=== PATIENT | male | born 1965 | race American Indian/Alaskan Native ===

== ENCOUNTER 2018-10-21 17:13 | Emergency (ER) | payer MEDICAID, OTHER ==
[2018-10-21] MEDS ORDERED: Diphtheria,Pertussis(Acell),Tetanus Vaccine 0.5 ML SDV IM ONE (17:55)
--- NOTE | 2018-10-21 18:01 | EDM.PDOC ---
ED HPI GENERAL MEDICAL PROBLEM - General Chief Complaint: Eye Problems Stated Complaint: RED EYE, HIT WITH BRANCH Time Seen by Provider: 10/21/18 17:45 Source of Information: Reports: Patient, Old Records, RN History Limitations: Reports: No Limitations - History of Present Illness INITIAL COMMENTS - FREE TEXT/NARRATIVE: 53 yo NA male presents with R eye pain after being hit in the R eye last night by a tree branch. Eye somewhat painful and watering a lot. Pain is not severe. Vision in normal. 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 (see below) (none) Right Eye Pain Score (Numeric/FACES): 4 - Related Data Allergies Allergy/AdvReac Type Severity Reaction Status Date / Time codeine Allergy Cannot Verified 10/21/18 17:41 Remember Home Meds: Home Meds Albuterol Sulfate [Albuterol Sulfate HFA] 2 puff INH TID PRN 11/10/13 [History] Fluticasone/Salmeterol [Advair 250-50 Diskus] 1 puff INH DAILY 11/10/13 [History ] Formoterol/Mometasone [Dulera 100 MCG/5 MCG] 1 - 2 puff INH BID 11/10/13 [ History] Acetaminophen 650 mg PO Q6HR PRN 02/03/18 [History] Albuterol [Proventil Neb Soln] 2.5 mg NEB Q6HR PRN 02/03/18 [History] Aspirin [Adult Low Dose Aspirin EC] 81 mg PO DAILY 02/03/18 [History] Cholecalciferol (Vitamin D3) [Decara] 50,000 units PO WEEKLY 02/03/18 [History] Diclofenac Sodium [Voltaren] 50 mg PO BID PRN 02/03/18 [History] Gabapentin [Neurontin] 900 mg PO TID 02/03/18 [History] Hydrocodone/Acetaminophen [Iron 10-325 Tablet] 1 tab PO TID PRN 02/03/18 [ History] Metoprolol Tartrate [Lopressor] 12.5 mg PO DAILY 02/03/18 [History] Multivitamin with Minerals [Multiple Vitamin] 1 tab PO DAILY 02/03/18 [History] Nitroglycerin [Nitrostat] 0.4 mg SL ASDIRECTED PRN 02/03/18 [History] Omeprazole 20 mg PO DAILY 02/03/18 [History] Ondansetron [Zofran ODT] 4 mg PO Q8HR PRN 02/03/18 [History] traZODone HCl [Trazodone HCl] 50 mg PO BEDTIME 02/03/18 [History] Past Medical History Cardiovascular History: Reports: Heart Failure, Hypertension, [place], PVD Respiratory History: Reports: Asthma, COPD Gastrointestinal History: Reports: GERD Musculoskeletal History: Reports: Back Pain, Chronic, Other (See Below) Other Musculoskeletal History: bad knees. bad left heel Neurological History: Reports: Migraines Endocrine/Metabolic History: Reports: Obesity/BMI 30+ Hematologic History: Reports: B12 Deficiency - Past Surgical History HEENT Surgical History: Reports: Other (See Below) Other HEENT Surgeries/Procedures: nasal surgery Cardiovascular Surgical History: Reports: Other (See Below) Other Cardiovascular Surgeries/Procedures: angiogram GI Surgical History: Reports: Hernia, Abdominal Musculoskeletal Surgical History: Reports: Hip Replacement Social & Family History - Tobacco Use Smoking Status *Q: Current Every Day Smoker Years of Tobacco use: 35 Packs/Tins Daily: 1 - Caffeine Use Caffeine Use: Reports: Coffee - Recreational Drug Use Recreational Drug Use: No ED ROS GENERAL - Review of Systems Review Of Systems: See Below Constitutional: Reports: No Symptoms HEENT: Reports: Eye Discharge (watering), Eye Pain (Right) Skin: Reports: No Symptoms Neurological: Reports: No Symptoms ED EXAM GENERAL W FULL EYE - Physical Exam Exam: See Below Exam Limited By: No Limitations General Appearance: Alert, WD/WN, No Apparent Distress Eye Exam: Right Eye: Conjunctival Injection, Bilateral Eye: EOMI, PERRL Eyelids: Bilateral: Normal Appearance Conjunctiva & Sclera: Right: Injected, Subconjuctival Hemorrhage (small on right ) Cornea Exam: Bilateral: Normal Appearance Extraocular Movements: Bilateral: Intact Pupillary Size: Bilateral: 3 mm Pupillary Reaction: Bilateral: Brisk Ears: Normal External Exam, Normal Canal, Hearing Grossly Normal Nose: Normal Inspection, Normal Mucosa, No Blood Throat/Mouth: Normal Lips, Normal Oropharynx, Normal Voice, No Airway Compromise Head: Atraumatic, Normocephalic Neck: Normal Inspection Course - Vital Signs Text/Narrative:: Fluorescein staining reveals abrasion just medial and horizontal starting at the medial edge of the R cornea and extending for about 0.5 cm. Last Recorded V/S: Last Vital Signs Temp 36.3 C 10/21/18 17:39 Pulse 61 10/21/18 17:39 Resp 18 10/21/18 17:39 BP 112/64 10/21/18 17:39 Pulse Ox 100 10/21/18 17:39 - Orders/Labs/Meds Orders: Active Orders 24 hr Category Date Time Status Vaccines to be Administered [RC] PER UNIT ROUTINE Care 10/21/18 17:55 Ordered Diphth,Pertuss(Acell),Tet Vac [Adacel] Med 10/21/18 17:55 Once 0.5 ml IM .ONCE ONE Departure - Departure Time of Disposition: 18:00 Disposition: Home, Self-Care 01 Condition: Good Clinical Impression: Conjunctival abrasion Qualifiers: Encounter type: initial encounter Laterality: right Qualified Code(s): S05.01XA - Injury of conjunctiva and corneal abrasion without foreign body, right eye, initial encounter - Discharge Information *PRESCRIPTION DRUG MONITORING PROGRAM REVIEWED*: No *COPY OF PRESCRIPTION DRUG MONITORING REPORT IN PATIENT ZAKIYA: No Referrals: Daphney Lundy I, RESIDENTIAL ROOFER [Primary Care Provider] - Additional Instructions: No rubbing your eye. Avoid bright lights. Take your antibiotic and pain medicine as prescribed. Recheck if not better in 2 days. - My Orders Last 24 Hours: My Active Orders 10/21/18 17:55 Vaccines to be Administered [RC] PER UNIT ROUTINE Diphth,Pertuss(Acell),Tet Vac [Adacel] 0.5 ml IM .ONCE ONE - Assessment/Plan Last 24 Hours: My Active Orders 10/21/18 17:55 Vaccines to be Administered [RC] PER UNIT ROUTINE Diphth,Pertuss(Acell),Tet Vac [Adacel] 0.5 ml IM .ONCE ONE
== END 2018-10-21 18:15 | disposition home or self-care (01) ==
LOC: JP.ED 17:13
DX: S05.01XA Injury of conjunctiva and corneal abrasion without foreign body, right eye, initial encounter (principal); I11.0 Hypertensive heart disease with heart failure; I50.9 Heart failure, unspecified; J44.9 Chronic obstructive pulmonary disease, unspecified; F17.210 Nicotine dependence, cigarettes, uncomplicated; W22.8XXA Striking against or struck by other objects, initial encounter; Z88.5 Allergy status to narcotic agent; Z79.899 Other long term (current) drug therapy; Z23 Encounter for immunization
CPT/HCPCS: 90471; 90715; 99283; 99283-25

== ENCOUNTER 2020-12-30 01:46 | Inpatient (IN) | payer MEDICAID, OTHER ==
[2020-12-30] MEDS ORDERED: Albuterol 0.083% 2.5 MG/3 ML Neb Soln NEB ONE (02:33)
--- NOTE | 2020-12-30 02:53 | EDM.PDOC ---
ED HPI GENERAL MEDICAL PROBLEM - General Chief Complaint: Respiratory Problem Stated Complaint: TROUBLE BREATHING Time Seen by Provider: 12/30/20 02:35 Source of Information: Reports: Patient, RN History Limitations: Reports: Other (incomplete medical records) - History of Present Illness INITIAL COMMENTS - FREE TEXT/NARRATIVE: 55 yo NA male smoker with known COPD and a chronic deep coccygeal pressure sore presents for worsening of his breathing tonight and new redness around his pressure sore that was noted by his home care nurse when she changed his dressing yesterday morning(told him at that time to go to the hospital). He still smokes 3/4 pack per day. Has a pHx of ETOH abuse. Is brought in by his daughter. He goes to [facility] to see his primary. He was hospitalized about 2 weeks ago for a week for "pneumonia" in [place]. He is not running a fever and states his pressure sore is not any more painful than normal. His pressure sore is followed by wound care doctor in [place], he sees him next in 2 mos. He is not diabetic. Onset: Today (of more breathing trouble) Onset Date: 12/30/20 Duration: Hour(s):, Constant Location: Reports: Chest (breathing worse for 3-4 hrs), Back (coccygeal area increasingly red at least 20 hrs) Quality: Reports: Other (no pain) Severity: Moderate (worsening of breathing and his ulcer) Improves with: Reports: None Worsens with: Reports: Other (unsure) Context: Reports: Other (See HPI) Associated Symptoms: Reports: Shortness of Breath (mostly with exertion). 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 (see below) (none) chronic body pain Pain Score (Numeric/FACES): 8 - Related Data Allergies Allergy/AdvReac Type Severity Reaction Status Date / Time codeine Allergy Cannot Verified 12/30/20 01:54 Remember Home Meds: Home Meds Albuterol Sulfate [Albuterol Sulfate HFA] 2 puff INH TID PRN 11/10/13 [History] Formoterol/Mometasone [Dulera 100 MCG/5 MCG] 1 - 2 puff INH BID 11/10/13 [History] Acetaminophen 650 mg PO Q6HR PRN 02/03/18 [History] Albuterol [Proventil Neb Soln] 2.5 mg NEB Q6HR PRN 02/03/18 [History] Aspirin [Adult Low Dose Aspirin EC] 81 mg PO DAILY 02/03/18 [History] Diclofenac Sodium [Voltaren] 50 mg PO BID PRN 02/03/18 [History] Gabapentin [Neurontin] 900 mg PO TID 02/03/18 [History] Metoprolol Tartrate [Lopressor] 12.5 mg PO DAILY 02/03/18 [History] Multivitamin with Minerals [Multiple Vitamin] 1 tab PO DAILY 02/03/18 [History] Nitroglycerin [Nitrostat] 0.4 mg SL ASDIRECTED PRN 02/03/18 [History] Omeprazole 20 mg PO DAILY 02/03/18 [History] Ondansetron [Zofran ODT] 4 mg PO Q8HR PRN 02/03/18 [History] traZODone HCl [Trazodone HCl] 50 mg PO BEDTIME 02/03/18 [History] Amitriptyline [Elavil] 10 mg PO DAILY 12/30/20 [History] oxyCODONE HCl/Acetaminophen [Percocet 10-325 mg Tablet] 1 tab PO ASDIRECTED PRN 12/30/20 [History] Past Medical History Cardiovascular History: Reports: Heart Failure, Hypertension, [place], PVD Respiratory History: Reports: Asthma, COPD, Sleep Apnea Gastrointestinal History: Reports: GERD Musculoskeletal History: Reports: Back Pain, Chronic, Other (See Below) Other Musculoskeletal History: bad knees. bad left heel Neurological History: Reports: Migraines Psychiatric History: Reports: Anxiety, Depression Endocrine/Metabolic History: Reports: Obesity/BMI 30+, Other (See Below) Other Endocrine/Metabolic History: hypoglycemic Hematologic History: Reports: B12 Deficiency Dermatologic History: Reports: Cellulitis, Other (See Below) Other Dermatologic History: pressure sore left side of buttox, treating since 2001 - Past Surgical History HEENT Surgical History: Reports: Other (See Below) Other HEENT Surgeries/Procedures: nasal surgery Cardiovascular Surgical History: Reports: Other (See Below) Other Cardiovascular Surgeries/Procedures: angiogram GI Surgical History: Reports: Hernia, Abdominal Musculoskeletal Surgical History: Reports: Hip Replacement Social & Family History - Tobacco Use Tobacco Use Status *Q: Current Every Day Tobacco User Years of Tobacco use: 15 Packs/Tins Daily: 0.7 - Caffeine Use Caffeine Use: Reports: Coffee - Recreational Drug Use Recreational Drug Use: Yes ED ROS GENERAL - Review of Systems Review Of Systems: See Below Constitutional: Denies: Fever, Chills HEENT: Reports: No Symptoms Respiratory: Reports: Shortness of Breath, Wheezing. Denies: Cough, Sputum, Hemoptysis Cardiovascular: Reports: No Symptoms Endocrine: Reports: No Symptoms GI/Abdominal: Reports: No Symptoms : Reports: No Symptoms Musculoskeletal: Reports: No Symptoms Skin: Reports: Wound (chronic coccygeal pressure sore now red. ) Neurological: Reports: No Symptoms ED EXAM, GENERAL - Physical Exam Exam: See Below Exam Limited By: No Limitations General Appearance: Alert, WD/WN, No Apparent Distress Eye Exam: Bilateral Eye: Normal Inspection Ears: Normal External Exam, Normal Canal, Hearing Grossly Normal Ear Exam: Bilateral Ear: Auricle Normal, Canal Normal Nose: Normal Inspection, No Blood Throat/Mouth: Normal Lips, Normal Oropharynx, Other (hoarse voice) Head: Atraumatic, Normocephalic Neck: Normal Inspection Respiratory/Chest: No Respiratory Distress, Lungs Clear, No Accessory Muscle Use, Respiratory Distress, Wheezing Cardiovascular: Regular Rate, Rhythm, No Edema GI/Abdominal: Normal Bowel Sounds, Soft, Non-Tender, No Distention. No: Distended Back Exam: Normal Inspection. No: CVA Tenderness (R), CVA Tenderness (L) Extremities: Normal Inspection, Normal Range of Motion, Non-Tender, No Pedal Edema. No: Pedal Edema Neurological: Alert, Oriented, CN II-XII Intact, Normal Cognition, No Jie r/Sensory Deficits Psychiatric: Normal Affect, Normal Mood Skin Exam: Warm, Dry, No Rash, Erythema (There is erythema surrounding his wound in a radius of about 2 cm), Wound/Incision (There is a deep and draining coccygeal ulcer in present with an external dressing and packing. ) #1 Interpretation EKG Date: 12/30/20 Time: 03:45 Rhythm: NSR Rate (Beats/Min): 102 [place]rtle: Normal P-Wave: Present QRS: Normal ST-T: Normal QT: Prolonged Comparison: NA - No Prior EKG Course - Vital Signs Text/Narrative:: Case discussed with Ruth Valenzuela and Titus Thayer @ [facility] Last Recorded V/S: Last Vital Signs Temp 35.9 C L 12/30/20 02:06 Pulse 107 H 12/30/20 02:06 Resp 24 H 12/30/20 02:06 BP 104/66 12/30/20 02:06 Pulse Ox 93 L 12/30/20 02:06 - Orders/Labs/Meds Orders: Active Orders 24 hr Category Date Time Status EKG Documentation Completion [RC] ASDIRECTED Care 12/30/20 03:22 Active RT Aerosol Therapy [RC] ASDIRECTED Care 12/30/20 02:33 Active Chest 2V [CR] Stat Exams 12/30/20 03:15 Taken COVID-19/FLU A+B/RSV [MOLEC] Routine Lab 12/30/20 03:25 Received CULTURE BLOOD [BC] Stat Lab 12/30/20 03:52 Ordered CULTURE BLOOD [BC] Stat Lab 12/30/20 03:52 Ordered UA W/MICROSCOPIC [URIN] Stat Lab 12/30/20 03:15 Ordered Magnesium Sulfate/Water [Magnesium Sulfate in Water 2 Med 12/30/20 03:30 Active GM/50 ML] 2 gm in 50 ml IV ONETIME NS + KCl 20mEq/L [Normal Saline with 20 mEq KCl] 1,000 Med 12/30/20 03:30 Active ml IV ASDIRECTED Potassium Chloride [Klor-Con M20] Med 12/30/20 04:19 Once 40 meq PO ONETIME ONE EKG 12 Lead [EK] Routine Ther 12/30/20 03:22 Ordered Medication Orders Potassium Chloride/Sodium Chloride (Normal Saline With 20 Meq Kcl) 1,000 mls @ 125 mls/hr IV ASDIRECTED EDUARDA Magnesium Sulfate (Magnesium Sulfate In Water 2 Gm/50 Ml) 2 gm in 50 mls @ 12.5 mls/hr IV ONETIME ONE Stop: 12/30/20 07:29 Potassium Chloride (Potassium Chloride 20 Meq Tab.Er) 40 meq PO ONETIME ONE Stop: 12/30/20 04:20 Labs: Laboratory Tests 12/30/20 12/30/20 12/30/20 Range/Units 03:10 03:10 03:10 WBC 19.5 H (4.5-11.0) K/uL RBC 4.02 L (4.30-5.90) M/uL Hgb 12.3 (12.0-15.0) g/dL Hct 35.3 L (40.0-54.0) % MCV 88 (80-98) fL MCH 31 (27-31) pg MCHC 35 (32-36) % Plt Count 281 (150-400) K/uL Sodium (140-148) mmol/L Potassium (3.6-5.2) mmol/L Chloride (100-108) mmol/L Carbon Dioxide (21-32) mmol/L Anion Gap (5.0-14.0) mmol/L BUN (7-18) mg/dL Creatinine (0.8-1.3) mg/dL Est Cr Clr Drug Dosing mL/min Estimated GFR (MDRD) (>60) Glucose (74-106) mg/dL Lactic Acid 2.4 H (0.4-2.0) mmol/L Calcium (8.5-10.1) mg/dL Magnesium (1.8-2.4) mg/dL C-Reactive Protein 7.02 H (0.0-0.3) mg/dL Albumin (3.4-5.0) g/dL 12/30/20 12/30/20 12/30/20 Range/Units 03:10 03:10 03:23 WBC (4.5-11.0) K/uL RBC (4.30-5.90) M/uL Hgb (12.0-15.0) g/dL Hct (40.0-54.0) % MCV (80-98) fL MCH (27-31) pg MCHC (32-36) % Plt Count (150-400) K/uL Sodium 129 L (140-148) mmol/L Potassium 2.2 L* (3.6-5.2) mmol/L Chloride 92 L (100-108) mmol/L Carbon Dioxide 27 (21-32) mmol/L Anion Gap 12.2 (5.0-14.0) mmol/L BUN 17 (7-18) mg/dL Creatinine 0.8 (0.8-1.3) mg/dL Est Cr Clr Drug Dosing 100.94 mL/min Estimated GFR (MDRD) > 60 (>60) Glucose 106 (74-106) mg/dL Lactic Acid (0.4-2.0) mmol/L Calcium 6.7 L* (8.5-10.1) mg/dL Magnesium 1.5 L (1.8-2.4) mg/dL C-Reactive Protein (0.0-0.3) mg/dL Albumin 1.1 L (3.4-5.0) g/dL Meds: Medications Generic Name Dose Route Start Last Admin Trade Name Freq PRN Reason Stop Dose Admin Potassium Chloride/Sodium Chloride 1,000 mls @ 125 mls/hr 12/30/20 03:30 Normal Saline With 20 Meq Kcl IV ASDIRECTED EDUARDA Magnesium Sulfate 2 gm in 50 mls @ 12.5 mls/hr 12/30/20 03:30 Magnesium Sulfate In Water 2 Gm/50 Ml IV 12/30/20 07:29 ONETIME ONE Potassium Chloride 40 meq 12/30/20 04:19 Potassium Chloride 20 Meq Tab.Er PO 12/30/20 04:20 ONETIME ONE Discontinued Medications Generic Name Dose Route Start Last Admin Trade Name Freq PRN Reason Stop Dose Admin Albuterol 2.5 mg 12/30/20 02:33 12/30/20 02:48 Albuterol 0.083% 2.5 Mg/3 Ml Neb Soln NEB 12/30/20 02:34 2.5 mg ONETIME ONE Administration Magnesium Oxide 400 mg 12/30/20 03:31 Magnesium Oxide 400 Mg Tab PO 12/30/20 03:32 ONETIME ONE Potassium Chloride 20 meq 12/30/20 03:15 12/30/20 03:31 Potassium Chloride 20 Meq Tab.Er PO 12/30/20 03:16 20 meq ONETIME ONE Administration - Radiology Interpretation Free Text/Narrative:: CXR-chronic changes only Departure - Departure Time of Disposition: 04:30 Disposition: Admitted As Inpatient 66 Clinical Impression: Hypokalemia, Hypomagnesemia, Hyponatremia, COPD exacerbation, Hypoproteinemia Chronic ulcer of sacral region Qualifiers: Non-pressure ulcer stage: with fat layer exposed Qualified Code(s): L98.492 - Non-pressure chronic ulcer of skin of other sites with fat layer exposed Infected decubitus ulcer Qualifiers: Pressure injury stage: unspecified pressure injury stage Qualified Code(s): L89.90 - Pressure ulcer of unspecified site, unspecified stage - Discharge Information *PRESCRIPTION DRUG MONITORING PROGRAM REVIEWED*: Not Applicable *COPY OF PRESCRIPTION DRUG MONITORING REPORT IN PATIENT ZAKIYA: Not Applicable Referrals: Daphney Lundy NP [Primary Care Provider] - Forms: ED Department Discharge Sepsis Event Note (ED) - Evaluation Sepsis Screening Result: No Definite Risk - Focused Exam Vital Signs: Vital Signs Temp Pulse Resp BP Pulse Ox 12/30/20 02:06 35.9 C L 107 H 24 H 104/66 93 L 12/30/20 02:00 35.9 C L 107 H 24 H 104/66 93 L - My Orders Last 24 Hours: My Active Orders 12/30/20 02:33 RT Aerosol Therapy [RC] ASDIRECTED 12/30/20 03:15 Chest 2V [CR] Stat UA W/MICROSCOPIC [URIN] Stat 12/30/20 03:22 EKG Documentation Completion [RC] ASDIRECTED EKG 12 Lead [EK] Routine 12/30/20 03:25 COVID-19/FLU A+B/RSV [MOLEC] Routine 12/30/20 03:30 Magnesium Sulfate/Water [Magnesium Sulfate in Water 2 GM/50 ML] 2 gm in 50 ml IV ONETIME NS + KCl 20mEq/L [Normal Saline with 20 mEq KCl] 1,000 ml IV ASDIRECTED 12/30/20 03:52 CULTURE BLOOD [BC] Stat CULTURE BLOOD [BC] Stat 12/30/20 04:19 Potassium Chloride [Klor-Con M20] 40 meq PO ONETIME ONE - Assessment/Plan Last 24 Hours: My Active Orders 12/30/20 02:33 RT Aerosol Therapy [RC] ASDIRECTED 12/30/20 03:15 Chest 2V [CR] Stat UA W/MICROSCOPIC [URIN] Stat 12/30/20 03:22 EKG Documentation Completion [RC] ASDIRECTED EKG 12 Lead [EK] Routine 12/30/20 03:25 COVID-19/FLU A+B/RSV [MOLEC] Routine 12/30/20 03:30 Magnesium Sulfate/Water [Magnesium Sulfate in Water 2 GM/50 ML] 2 gm in 50 ml IV ONETIME NS + KCl 20mEq/L [Normal Saline with 20 mEq KCl] 1,000 ml IV ASDIRECTED 12/30/20 03:52 CULTURE BLOOD [BC] Stat CULTURE BLOOD [BC] Stat 12/30/20 04:19 Potassium Chloride [Klor-Con M20] 40 meq PO ONETIME ONE
[2020-12-30] MEDS ORDERED: Potassium Chloride 20 MEQ Tab.ER PO ONE ×4 (03:15→15:33)
[2020-12-30] MEDS ORDERED: NS + KCl 20mEq/L 1,000 ML IV SCH ×2 (03:30→06:15)
[2020-12-30] MEDS ORDERED: Magnesium Sulfate/Water 2 GM/50 ML BAG IV ONE (03:30)
[2020-12-30] MEDS ORDERED: Magnesium Oxide 400 MG Tab PO ONE (03:31)
[2020-12-30 04:20] LABS: CORONAVIRUS COVID-19 NAA NEGATIVE (NEGATIVE)
--- NOTE | 2020-12-30 05:45 | PCM.HP.2 ---
H&P History of Present Illness - General Date of Service: 12/30/20 Admit Problem/Dx: Admission Diagnosis/Problem Admission Diagnosis/Problem COPD with acute lower respiratory infection Source of Information: Patient History Limitations: Reports: No Limitations - History of Present Illness Initial Comments - Free Text/Narative: Chief Complaint: shortness of breath and pressure sore (since 2001) 55 yo NA male smoker with known COPD and a chronic deep coccygeal pressure sore presents for worsening of his breathing tonight and new redness around his pressure sore that was noted by his home care nurse when she changed his dressing yesterday morning(told him at that time to go to the hospital). He still smokes 3/4 pack per day. Has a pHx of ETOH abuse. Is brought in by his daughter. He goes to [facility] to see his primary. He was hospitalized about 2 weeks ago for a week for "pneumonia" in [place]. He is not running a fever and states his pressure sore is not any more painful than normal. His pressure sore is followed by wound care doctor in [place], he sees him next in 2 mos. He is not diabetic. Onset: Today (of more breathing trouble) Onset Date: 12/30/20 Onset of Symptoms: Reports: Gradual Duration of Symptoms: Reports: Day(s):, Getting Worse Location: Reports: Generalized Quality: Reports: Same as Previous Episode (hospitalized 2 weeks ago at [place], [place]. for pneumonia) Severity: Moderate Improves with: Reports: None Worsens with: Reports: Rest Context: Reports: Other (acute on chronic disease) Associated Symptoms: Reports: Cough, Malaise, Shortness of Breath chronic body pain Pain Score (Numeric/FACES): 8 - Related Data Allergies/Adverse Reactions: Allergies Allergy/AdvReac Type Severity Reaction Status Date / Time codeine Allergy Cannot Verified 12/30/20 01:54 Remember Home Medications: Home Meds Albuterol Sulfate [Albuterol Sulfate HFA] 2 puff INH TID PRN 11/10/13 [History] Formoterol/Mometasone [Dulera 100 MCG/5 MCG] 1 - 2 puff INH BID 11/10/13 [History] Acetaminophen 650 mg PO Q6HR PRN 02/03/18 [History] Albuterol [Proventil Neb Soln] 2.5 mg NEB Q6HR PRN 02/03/18 [History] Aspirin [Adult Low Dose Aspirin EC] 81 mg PO DAILY 02/03/18 [History] Diclofenac Sodium [Voltaren] 50 mg PO BID PRN 02/03/18 [History] Gabapentin [Neurontin] 900 mg PO TID 02/03/18 [History] Metoprolol Tartrate [Lopressor] 12.5 mg PO DAILY 02/03/18 [History] Multivitamin with Minerals [Multiple Vitamin] 1 tab PO DAILY 02/03/18 [History] Nitroglycerin [Nitrostat] 0.4 mg SL ASDIRECTED PRN 02/03/18 [History] Omeprazole 20 mg PO DAILY 02/03/18 [History] Ondansetron [Zofran ODT] 4 mg PO Q8HR PRN 02/03/18 [History] traZODone HCl [Trazodone HCl] 50 mg PO BEDTIME 02/03/18 [History] Amitriptyline [Elavil] 10 mg PO DAILY 12/30/20 [History] oxyCODONE HCl/Acetaminophen [Percocet 10-325 mg Tablet] 1 tab PO ASDIRECTED PRN 12/30/20 [History] Past Medical History Cardiovascular History: Reports: Heart Failure, Hypertension, [place], PVD Respiratory History: Reports: Asthma, COPD, Sleep Apnea Gastrointestinal History: Reports: GERD Musculoskeletal History: Reports: Back Pain, Chronic, Other (See Below) Other Musculoskeletal History: bad knees. bad left heel Neurological History: Reports: Migraines Psychiatric History: Reports: Anxiety, Depression Endocrine/Metabolic History: Reports: Obesity/BMI 30+, Other (See Below) Other Endocrine/Metabolic History: hypoglycemic Hematologic History: Reports: B12 Deficiency Dermatologic History: Reports: Cellulitis, Other (See Below) Other Dermatologic History: pressure sore left side of buttox, treating since 2001 - Past Surgical History HEENT Surgical History: Reports: Other (See Below) Other HEENT Surgeries/Procedures: nasal surgery Cardiovascular Surgical History: Reports: Other (See Below) Other Cardiovascular Surgeries/Procedures: angiogram GI Surgical History: Reports: Hernia, Abdominal Musculoskeletal Surgical History: Reports: Hip Replacement Social & Family History - Tobacco Use Tobacco Use Status *Q: Current Every Day Tobacco User Years of Tobacco use: 15 Packs/Tins Daily: 0.7 - Caffeine Use Caffeine Use: Reports: Coffee - Recreational Drug Use Recreational Drug Use: Yes - Living Situation & Occupation Living situation: Reports: Single H&P Review of Systems - Review of Systems: Review Of Systems: Unable To Obtain Reason Not Obtained: Mr. Easton to tired/sleepy to answer questions General: Reports: Fatigue Exam - Exam Exam: See Below - Vital Signs Vital Signs: Last Vital Signs Temp 97.3 F 12/30/20 04:27 Pulse 103 H 12/30/20 04:27 Resp 14 12/30/20 04:27 BP 108/68 12/30/20 04:27 Pulse Ox 94 L 12/30/20 04:27 Weight: 182 lb - Exam Quality Assessment: Supplemental Oxygen, DVT Prophylaxis, Skin Breakdown (non pressure ulcer stage with fat layer exposed-chronic since 2001) General: Sedated HEENT: Nares Patent Neck: Supple, Trachea Midline Lungs: Decreased Breath Sounds, Crackles, Wheezing Cardiovascular: Regular Rate, Regular Rhythm, Normal S1, Normal S2 GI/Abdominal Exam: Normal Bowel Sounds, Soft, Non-Tender, No Distention (Male) Exam: Deferred Rectal (Males) Exam: Deferred Extremities: Normal Inspection, Normal Range of Motion, Non-Tender, No Pedal Edema, Normal Capillary Refill, Other (feet with dry skin and nails with fungal infection) Peripheral Pulses: 2+: Radial (L), Radial (R), Dorsalis Pedis (L), Dorsalis Pedis (R) Skin: Warm, Dry, Wound, Other ( Warm, Dry, No Rash, Erythema (There is erythema surrounding his wound in a radius of about 2 cm), Wound/Incision (There is a deep and draining coccygeal ulcer in present with an external dressing and packing.) - Patient Data Lab Results Last 24 hrs: Laboratory Results - last 24 hr 12/30/20 12/30/20 12/30/20 Range/Units 03:10 03:10 03:10 WBC 19.5 H (4.5-11.0) K/uL RBC 4.02 L (4.30-5.90) M/uL Hgb 12.3 (12.0-15.0) g/dL Hct 35.3 L (40.0-54.0) % MCV 88 (80-98) fL MCH 31 (27-31) pg MCHC 35 (32-36) % Plt Count 281 (150-400) K/uL Sodium (140-148) mmol/L Potassium (3.6-5.2) mmol/L Chloride (100-108) mmol/L Carbon Dioxide (21-32) mmol/L Anion Gap (5.0-14.0) mmol/L BUN (7-18) mg/dL Creatinine (0.8-1.3) mg/dL Est Cr Clr Drug Dosing mL/min Estimated GFR (MDRD) (>60) Glucose (74-106) mg/dL Lactic Acid 2.4 H (0.4-2.0) mmol/L Calcium (8.5-10.1) mg/dL Magnesium (1.8-2.4) mg/dL C-Reactive Protein 7.02 H (0.0-0.3) mg/dL Albumin (3.4-5.0) g/dL Urine Color (YELLOW) Urine Appearance (CLEAR) Urine pH (5.0-8.0) Ur Specific [place] (1.008-1.030) Urine Protein (NEGATIVE) mg/dL Urine Glucose (UA) (NEGATIVE) mg/dL Urine Ketones (NEGATIVE) mg/dL Urine Occult Blood (NEGATIVE) Urine Nitrite (NEGATIVE) Urine Bilirubin (NEGATIVE) Urine Urobilinogen (0.2-1.0) EU/dL Ur Leukocyte Esterase (NEGATIVE) Urine RBC (0-5) Urine WBC (0-5) Ur Epithelial Cells Amorphous Sediment Urine Bacteria Urine Mucus Urine Opiates Screen (NEGATIVE) Ur Oxycodone Screen (NEGATIVE) Urine Methadone Screen (NEGATIVE) Ur Propoxyphene Screen (NEGATIVE) Ur Barbiturates Screen (NEGATIVE) Ur Tricyclics Screen (NEGATIVE) Ur Phencyclidine Scrn (NEGATIVE) Ur Amphetamine Screen (NEGATIVE) U Methamphetamines Scrn (NEGATIVE) Urine MDMA Screen (NEGATIVE) U Benzodiazepines Scrn (NEGATIVE) U Cocaine Metab Screen (NEGATIVE) U Marijuana (THC) Screen (NEGATIVE) Influenza Type A RNA (NEGATIVE) RSV RNA (INAAT) (NEGATIVE) Influenza Type B RNA (NEGATIVE) SARS-CoV-2 RNA (DEWAYNE) (NEGATIVE) 12/30/20 12/30/20 12/30/20 Range/Units 03:10 03:10 03:23 WBC (4.5-11.0) K/uL RBC (4.30-5.90) M/uL Hgb (12.0-15.0) g/dL Hct (40.0-54.0) % MCV (80-98) fL MCH (27-31) pg MCHC (32-36) % Plt Count (150-400) K/uL Sodium 129 L (140-148) mmol/L Potassium 2.2 L* (3.6-5.2) mmol/L Chloride 92 L (100-108) mmol/L Carbon Dioxide 27 (21-32) mmol/L Anion Gap 12.2 (5.0-14.0) mmol/L BUN 17 (7-18) mg/dL Creatinine 0.8 (0.8-1.3) mg/dL Est Cr Clr Drug Dosing 100.94 mL/min Estimated GFR (MDRD) > 60 (>60) Glucose 106 (74-106) mg/dL Lactic Acid (0.4-2.0) mmol/L Calcium 6.7 L* (8.5-10.1) mg/dL Magnesium 1.5 L (1.8-2.4) mg/dL C-Reactive Protein (0.0-0.3) mg/dL Albumin 1.1 L (3.4-5.0) g/dL Urine Color (YELLOW) Urine Appearance (CLEAR) Urine pH (5.0-8.0) Ur Specific [place] (1.008-1.030) Urine Protein (NEGATIVE) mg/dL Urine Glucose (UA) (NEGATIVE) mg/dL Urine Ketones (NEGATIVE) mg/dL Urine Occult Blood (NEGATIVE) Urine Nitrite (NEGATIVE) Urine Bilirubin (NEGATIVE) Urine Urobilinogen (0.2-1.0) EU/dL Ur Leukocyte Esterase (NEGATIVE) Urine RBC (0-5) Urine WBC (0-5) Ur Epithelial Cells Amorphous Sediment Urine Bacteria Urine Mucus Urine Opiates Screen (NEGATIVE) Ur Oxycodone Screen (NEGATIVE) Urine Methadone Screen (NEGATIVE) Ur Propoxyphene Screen (NEGATIVE) Ur Barbiturates Screen (NEGATIVE) Ur Tricyclics Screen (NEGATIVE) Ur Phencyclidine Scrn (NEGATIVE) Ur Amphetamine Screen (NEGATIVE) U Methamphetamines Scrn (NEGATIVE) Urine MDMA Screen (NEGATIVE) U Benzodiazepines Scrn (NEGATIVE) U Cocaine Metab Screen (NEGATIVE) U Marijuana (THC) Screen (NEGATIVE) Influenza Type A RNA (NEGATIVE) RSV RNA (INAAT) (NEGATIVE) Influenza Type B RNA (NEGATIVE) SARS-CoV-2 RNA (DEWAYNE) (NEGATIVE) 12/30/20 12/30/20 12/30/20 Range/Units 03:25 04:36 05:13 WBC (4.5-11.0) K/uL RBC (4.30-5.90) M/uL Hgb (12.0-15.0) g/dL Hct (40.0-54.0) % MCV (80-98) fL MCH (27-31) pg MCHC (32-36) % Plt Count (150-400) K/uL Sodium (140-148) mmol/L Potassium (3.6-5.2) mmol/L Chloride (100-108) mmol/L Carbon Dioxide (21-32) mmol/L Anion Gap (5.0-14.0) mmol/L BUN (7-18) mg/dL Creatinine (0.8-1.3) mg/dL Est Cr Clr Drug Dosing mL/min Estimated GFR (MDRD) (>60) Glucose (74-106) mg/dL Lactic Acid (0.4-2.0) mmol/L Calcium (8.5-10.1) mg/dL Magnesium (1.8-2.4) mg/dL C-Reactive Protein (0.0-0.3) mg/dL Albumin (3.4-5.0) g/dL Urine Color Yellow (YELLOW) Urine Appearance Clear (CLEAR) Urine pH 6.5 (5.0-8.0) Ur Specific [place] 1.020 (1.008-1.030) Urine Protein Negative (NEGATIVE) mg/dL Urine Glucose (UA) Negative (NEGATIVE) mg/dL Urine Ketones Negative (NEGATIVE) mg/dL Urine Occult Blood Negative (NEGATIVE) Urine Nitrite Negative (NEGATIVE) Urine Bilirubin Negative (NEGATIVE) Urine Urobilinogen 1.0 (0.2-1.0) EU/dL Ur Leukocyte Esterase Negative (NEGATIVE) Urine RBC 0-5 (0-5) Urine WBC 0-5 (0-5) Ur Epithelial Cells Few Amorphous Sediment Rare Urine Bacteria Rare Urine Mucus Not seen Urine Opiates Screen Negative (NEGATIVE) Ur Oxycodone Screen Presumptive positive H (NEGATIVE) Urine Methadone Screen Negative (NEGATIVE) Ur Propoxyphene Screen Negative (NEGATIVE) Ur Barbiturates Screen Negative (NEGATIVE) Ur Tricyclics Screen Presumptive positive H (NEGATIVE) Ur Phencyclidine Scrn Negative (NEGATIVE) Ur Amphetamine Screen Negative (NEGATIVE) U Methamphetamines Scrn Negative (NEGATIVE) Urine MDMA Screen Negative (NEGATIVE) U Benzodiazepines Scrn Negative (NEGATIVE) U Cocaine Metab Screen Negative (NEGATIVE) U Marijuana (THC) Screen Presumptive positive H (NEGATIVE) Influenza Type A RNA Negative (NEGATIVE) RSV RNA (INAAT) Negative (NEGATIVE) Influenza Type B RNA Negative (NEGATIVE) SARS-CoV-2 RNA (DEWAYNE) Negative (NEGATIVE) Result Diagrams: 12/30/20 03:10 12/30/20 03:10 Sepsis Event Note - Evaluation Sepsis Screening Result: No Definite Risk - Focused Exam Vital Signs: Vital Signs Temp Pulse Resp BP Pulse Ox 12/30/20 04:27 97.3 F 103 H 14 108/68 94 L 12/30/20 02:06 96.7 F L 107 H 24 H 104/66 93 L 12/30/20 02:00 96.7 F L 107 H 24 H 104/66 93 L - Problem List (1) COPD exacerbation SNOMED Code(s): 508380101 ICD Code: J44.1 - CHRONIC OBSTRUCTIVE PULMONARY DISEASE W (ACUTE) EXACERBATION Status: Acute Priority: High Current Visit: Yes (2) Chronic ulcer of sacral region SNOMED Code(s): 158666993, 56257986134232824 ICD Code: L98.429 - NON-PRESSURE CHRONIC ULCER OF BACK WITH UNSPECIFIED SEVERITY Status: Acute Priority: High Current Visit: Yes Qualifiers: Non-pressure ulcer stage: with fat layer exposed Qualified Code(s): L98.492 - Non-pressure chronic ulcer of skin of other sites with fat layer exposed (3) Hypokalemia SNOMED Code(s): 11201662 ICD Code: E87.6 - HYPOKALEMIA Status: Acute Priority: High Current Visit: Yes (4) Chronic pain SNOMED Code(s): 65236946 ICD Code: G89.29 - OTHER CHRONIC PAIN Status: Acute Priority: High Current Visit: Yes Qualifiers: Chronic pain type: other chronic pain Qualified Code(s): G89.29 - Other chronic pain (5) Hypomagnesemia SNOMED Code(s): 008858020 ICD Code: E83.42 - HYPOMAGNESEMIA Status: Acute Priority: High Current Visit: Yes (6) Hyponatremia SNOMED Code(s): 13028828 ICD Code: E87.1 - HYPO-OSMOLALITY AND HYPONATREMIA Status: Acute Priority: High Current Visit: Yes (7) Infected decubitus ulcer SNOMED Code(s): 225471217 ICD Code: L89.90 - PRESSURE ULCER OF UNSPECIFIED SITE, UNSPECIFIED STAGE; L08.9 - LOCAL INFECTION OF THE SKIN AND SUBCUTANEOUS TISSUE, UNSP Status: Acute Priority: High Current Visit: Yes Qualifiers: Pressure injury stage: unspecified pressure injury stage Qualified Code(s): L89.90 - Pressure ulcer of unspecified site, unspecified stage; L08.9 - Local infection of the skin and subcutaneous tissue, unspecified Problem List Initiated/Reviewed/Updated: Yes Orders Last 24hrs: Active Orders 24 hr Category Date Time Status Patient Status Manage Transfer [TRANSFER] Routine ADT 12/30/20 05:24 Active EKG Documentation Completion [RC] ASDIRECTED Care 12/30/20 03:22 Active RT Aerosol Therapy [RC] ASDIRECTED Care 12/30/20 02:33 Active Chest 2V [CR] Stat Exams 12/30/20 03:15 Taken AMYLASE [CHEM] Urgent Lab 12/30/20 05:12 Ordered CULTURE BLOOD [BC] Stat Lab 12/30/20 04:00 Received CULTURE BLOOD [BC] Stat Lab 12/30/20 04:05 Received HEPATIC FUNCTION PANEL,HFP [CHEM] Urgent Lab 12/30/20 05:11 Ordered INR,PT,PROTHROMBIN TIME [COAG] Urgent Lab 12/30/20 05:11 Ordered LACTIC ACID [CHEM] Routine Lab 12/30/20 07:10 Ordered LIPASE [CHEM] Urgent Lab 12/30/20 05:12 Ordered Magnesium Sulfate/Water [Magnesium Sulfate in Water 2 Med 12/30/20 03:30 Active GM/50 ML] 2 gm in 50 ml IV ONETIME NS + KCl 20mEq/L [Normal Saline with 20 mEq KCl] 1,000 Med 12/30/20 03:30 Active ml IV ASDIRECTED Resuscitation Status Routine Resus Stat 12/30/20 05:29 Ordered EKG 12 Lead [EK] Routine Ther 12/30/20 03:22 Ordered Medication Orders Potassium Chloride/Sodium Chloride (Normal Saline With 20 Meq Kcl) 1,000 mls @ 125 mls/hr IV ASDIRECTED [facility] Last Admin: 12/30/20 04:27 Dose: 125 mls/hr Documented by: SARAH Magnesium Sulfate (Magnesium Sulfate In Water 2 Gm/50 Ml) 2 gm in 50 mls @ 12.5 mls/hr IV ONETIME ONE Stop: 12/30/20 07:29 Last Admin: 12/30/20 04:27 Dose: 12.5 mls/hr Documented by: SARAH Assessment/Plan Comment:: ASSESSMENT AND PLAN OF CARE- COPD WITH ACUTE LOWER RESPIRATORY INFECTION, HYPOKALEMIA, HYPOMAGNESIUM, CHRONIC PAIN, TOBACCO ER workup shows elevated WBC 19.5, hgb 12.3, hct 35.3 Chemistry Na+ 129, K+ 2.2, Cl 102, anion gap 12.2, BUN 17, Cr 0.8, glucose 106, Co2 27, Covid 19, influenza A&B, RSV negative, blood cultures pending. LFT'S, INR, PT, amylase, lipase, UDS, UA with micro pending Xray chest right patchy infiltrates and Chest CT pending results. Plan to hospital admission for further care and treatment. Patient agree with plan of care. COPD with acute lower respiratory infection -Admit to [address] [place] [address] for further monitoring -IV Fluids for rehydration NS at 125 ml/hr -IV Antibiotic; Meropenem 1 gram every 8 hours -oxygen to keep sats greater than 95% -IV Solumedrol 125mg now, then 62.5 mg every 8 hours -schedule Duo nebs every 6 hours, Albuterol nebs every 4 hours prn -Advise to notify nurses of any chest pain or other symptoms -blood cultures x2 pending -lactic acid recheck at 0700 Hypokalemia- Potassium IV 20 meq. and PO 40 meq. given in ER, IV fluids NS with Potassium 20 meq -Potassium recheck at 1300 Hypomagnesium- replacement magnesium 400 mg po -Magnesium recheck at 1300 Hyponatremia- Sodium 129 -IV fluids Normal Saline 125ml/hr -Sodium recheck at 1300 Chronic pain -continue outpatient medication plan Pressure Ulcer -daily dressing changes -consult to Wound Care Tobacco dependence -Nicotine patch 14 mg daily -encouraged to quit smoking Maintenance issues -Orders home meds: chronic medication -Nutrition: regular diet -Paul catheter -not indicated at this time -DVT - Lovenox 40 mg subcut daily -PPI; IV Protonix 40mg daily CODE STATUS: FULL Admission status: Admit to [address] [place] [address] Admission justification. This patient will be admitted for inpatient services and is medically appropriate meeting medical necessity for inpatient admission as outlined in my documentation. I reasonably expect the patient will require inpatient services that span. Time over 2 midnights. I reasonably expect this patient to be discharged or transferred within 96 hours after admission to the critical [facility]. Disposition: home with Family Primary care provider: Daphney Lundy NP, [facility] Hospitalist: Dr. Thayer - Mortality Measure Prognosis:: Good - Mortality Measure Prognosis:: Good
[2020-12-30] MEDS ORDERED: Ondansetron 4 MG Tab.DIS PO PRN (06:07)
[2020-12-30] MEDS ORDERED: Ondansetron 4 MG/2 ML SDV IV PRN (06:07)
[2020-12-30] MEDS ORDERED: methylPREDNISolone Sodium Succinate 125 MG/2 ML SDV IV ONE (06:07)
[2020-12-30] MEDS ORDERED: Nitroglycerin 0.4 MG Tab.SL SL PRN (06:07)
[2020-12-30] MEDS ORDERED: Sodium Chloride 0.9% 1,000 ML IV SCH (06:07)
[2020-12-30] MEDS ORDERED: Docusate Sodium 100 MG Cap PO PRN (06:07)
[2020-12-30] MEDS ORDERED: Bisacodyl 5 MG Tab PO PRN (06:07)
[2020-12-30] MEDS ORDERED: LORazepam 2 MG/ML SDV IV PRN (06:07)
[2020-12-30] MEDS ORDERED: Morphine 2 MG/ML SYRINGE IVPUSH PRN (06:07)
[2020-12-30] MEDS ORDERED: Acetaminophen 325 MG Tab PO PRN (06:07)
[2020-12-30] MEDS ORDERED: Meropenem 500 MG in Sodium Chloride 0.9% 50 ML IV SCH (06:30)
[2020-12-30] MEDS: Albuterol/Ipratropium 3.0-0.5 MG/3 ML Neb Soln NEB SCH ×4 (07:14→20:42)
[2020-12-30] MEDS: Meropenem 1 GM in Sodium Chloride 0.9% 100 ML IV SCH ×2 (07:59→15:00)
--- NOTE | 2020-12-30 07:59 | CRLCT ---
HISTORY: COPD, hypoxia. TECHNIQUE: Noncontrast chest CT. COMPARISON: Chest radiograph 12/30/2020. FINDINGS: Tracheostomy. No thoracic aortic aneurysm. Coronary arterial atherosclerotic vascular calcifications are present. No significant pericardial effusion. - 1.6 cm short axis subcarinal lymph node image #52 of series 2. Right paratracheal lymph node image #36 measuring 0.9 cm short axis. The enmanuel are not optimally evaluated without contrast for the presence of enlarged lymph nodes. There is a prominent right inferior hilar lymph node on image #57 which may measure on the order of 1-1.5 cm short axis. - Pulmonary emphysema. There are asymmetric ground-glass lung infiltrates much more extensive on the right than the left. This could relate to infection, asymmetric pulmonary edema or inflammatory infiltrates. Rule out COVID-19. Peribronchial thickening is present. Assessment for nodules limited by the presence of the infiltrates. There is no pleural effusion or pneumothorax. - Limited evaluation of the upper abdomen demonstrates postsurgical changes of gastric bypass. There is a small hiatal hernia. Cholelithiasis is present. The lesion exophytic off the left kidney could represent a cyst though is incompletely characterized. - Degenerative changes of the thoracic spine. Mild anterior wedging of a few lower thoracic vertebral bodies is likely more chronic. IMPRESSION: 1. Asymmetric lung infiltrates, much greater on the right than the left. These could be infectious, inflammatory or relate to asymmetric pulmonary edema. Rule out COVID-19. 2. Mild nonspecific mediastinal and potentially right hilar adenopathy. 3. Pulmonary emphysema. Dictated by Claude Santa MD @ 12/30/2020 7:58:43 AM Please note that all CT scans at this facility use dose modulation, iterative reconstruction, and/or weight-based dosing when appropriate to reduce radiation dose to as low as reasonably achievable. Dictated by: Claude Santa MD @ 12/30/2020 07:58:49 (Electronically Signed)
[2020-12-30] MEDS: Pantoprazole 40 MG Tab.CR PO SCH (08:43)
[2020-12-30] MEDS: Levofloxacin/Dextrose 5%-Water 750 MG in Premix Bag 1 BAG IV SCH (08:43)
[2020-12-30] MEDS: Multivitamins with Iron/Calcium/Folic Acid/Minerals Tab PO SCH (08:44)
[2020-12-30] MEDS: Gabapentin 300 MG Cap PO SCH ×3 (08:44→20:02)
[2020-12-30] MEDS: Enoxaparin 40 MG/0.4 ML Syringe SUBCUT SCH (08:45)
[2020-12-30] MEDS ORDERED: Vancomycin 1 GM SDV IV SCH (09:00)
[2020-12-30] MEDS ORDERED: Amitriptyline 10 MG Tab PO SCH (09:00)
[2020-12-30] MEDS ORDERED: Pantoprazole 40 MG Vial IVPUSH SCH (09:00)
[2020-12-30] MEDS ORDERED: Vancomycin 2 GM in Sodium Chloride 0.9% 500 ML IV ONE (10:00)
[2020-12-30] MEDS: Metoprolol Tartrate 25 MG Tab PO SCH (10:18)
[2020-12-30] MEDS: methylPREDNISolone Sodium Succinate 125 MG/2 ML SDV IV SCH ×2 (13:00→17:44)
[2020-12-30] MEDS: Potassium Chloride 20 MEQ, Lidocaine 1% 2 ML in Sodium Chloride 0.9% 100 ML IV SCH ×2 (13:32→16:34)
--- NOTE | 2020-12-30 15:44 | PCM.PN ---
- General Info Date of Service: 12/30/20 Subjective Update: Mr. Easton is a 55-year-old gentleman who was admitted through the emergency department early this morning with elevated white blood cell count and evidence of bilateral infiltrates on chest x-ray. He also has a chronic decubitus ulcer that has been more erythematous, raising the question of possible infection. Apparently he was recently hospitalized in [place] this past week for pneumonia and was treated with antibiotic therapy. He is very sleepy this morning and unable or unwilling to participate in conversation or answer questions. - Patient Data Vitals - Most Recent: Last Vital Signs Temp 96.5 F L 12/30/20 14:21 Pulse 78 12/30/20 14:36 Resp 16 12/30/20 14:21 BP 96/51 L 12/30/20 14:21 Pulse Ox 93 L 12/30/20 14:21 Weight - Most Recent: 182 lb I&O - Last 24 Hours: Intake & Output 12/30/20 12/30/20 12/30/20 06:59 14:59 22:59 Intake Total 750 Balance 750 Lab Results Last 24 Hours: Laboratory Results - last 24 hr 12/30/20 12/30/20 12/30/20 Range/Units 03:10 03:10 03:10 WBC 19.5 H (4.5-11.0) K/uL RBC 4.02 L (4.30-5.90) M/uL Hgb 12.3 (12.0-15.0) g/dL Hct 35.3 L (40.0-54.0) % MCV 88 (80-98) fL MCH 31 (27-31) pg MCHC 35 (32-36) % Plt Count 281 (150-400) K/uL PT (9.5-12.0) sec INR (0.80-1.20) Sodium (140-148) mmol/L Potassium (3.6-5.2) mmol/L Chloride (100-108) mmol/L Carbon Dioxide (21-32) mmol/L Anion Gap (5.0-14.0) mmol/L BUN (7-18) mg/dL Creatinine (0.8-1.3) mg/dL Est Cr Clr Drug Dosing mL/min Estimated GFR (MDRD) (>60) Glucose (74-106) mg/dL Lactic Acid 2.4 H (0.4-2.0) mmol/L Calcium (8.5-10.1) mg/dL Magnesium (1.8-2.4) mg/dL Total Bilirubin (0.2-1.0) mg/dL Direct Bilirubin (0.0-0.2) mg/dL Indirect Bilirubin AST (15-37) U/L ALT (12-78) U/L Alkaline Phosphatase (46-116) U/L C-Reactive Protein 7.02 H (0.0-0.3) mg/dL Total Protein (6.4-8.2) g/dL Albumin (3.4-5.0) g/dL Globulin (2.3-3.5) g/dL Albumin/Globulin Ratio (1.2-2.2) Amylase (25-115) U/L Lipase (73-393) U/L Urine Color (YELLOW) Urine Appearance (CLEAR) Urine pH (5.0-8.0) Ur Specific [place] (1.008-1.030) Urine Protein (NEGATIVE) mg/dL Urine Glucose (UA) (NEGATIVE) mg/dL Urine Ketones (NEGATIVE) mg/dL Urine Occult Blood (NEGATIVE) Urine Nitrite (NEGATIVE) Urine Bilirubin (NEGATIVE) Urine Urobilinogen (0.2-1.0) EU/dL Ur Leukocyte Esterase (NEGATIVE) Urine RBC (0-5) Urine WBC (0-5) Ur Epithelial Cells Amorphous Sediment Urine Bacteria Urine Mucus Urine Opiates Screen (NEGATIVE) Ur Oxycodone Screen (NEGATIVE) Urine Methadone Screen (NEGATIVE) Ur Propoxyphene Screen (NEGATIVE) Ur Barbiturates Screen (NEGATIVE) Ur Tricyclics Screen (NEGATIVE) Ur Phencyclidine Scrn (NEGATIVE) Ur Amphetamine Screen (NEGATIVE) U Methamphetamines Scrn (NEGATIVE) Urine MDMA Screen (NEGATIVE) U Benzodiazepines Scrn (NEGATIVE) U Cocaine Metab Screen (NEGATIVE) U Marijuana (THC) Screen (NEGATIVE) Influenza Type A RNA (NEGATIVE) RSV RNA (INAAT) (NEGATIVE) Influenza Type B RNA (NEGATIVE) SARS-CoV-2 RNA ([place]) (NEGATIVE) 12/30/20 12/30/20 12/30/20 Range/Units 03:10 03:10 03:23 WBC (4.5-11.0) K/uL RBC (4.30-5.90) M/uL Hgb (12.0-15.0) g/dL Hct (40.0-54.0) % MCV (80-98) fL MCH (27-31) pg MCHC (32-36) % Plt Count (150-400) K/uL PT (9.5-12.0) sec INR (0.80-1.20) Sodium 129 L (140-148) mmol/L Potassium 2.2 L* (3.6-5.2) mmol/L Chloride 92 L (100-108) mmol/L Carbon Dioxide 27 (21-32) mmol/L Anion Gap 12.2 (5.0-14.0) mmol/L BUN 17 (7-18) mg/dL Creatinine 0.8 (0.8-1.3) mg/dL Est Cr Clr Drug Dosing 100.94 mL/min Estimated GFR (MDRD) > 60 (>60) Glucose 106 (74-106) mg/dL Lactic Acid (0.4-2.0) mmol/L Calcium 6.7 L* (8.5-10.1) mg/dL Magnesium 1.5 L (1.8-2.4) mg/dL Total Bilirubin (0.2-1.0) mg/dL Direct Bilirubin (0.0-0.2) mg/dL Indirect Bilirubin AST (15-37) U/L ALT (12-78) U/L Alkaline Phosphatase (46-116) U/L C-Reactive Protein (0.0-0.3) mg/dL Total Protein (6.4-8.2) g/dL Albumin 1.1 L (3.4-5.0) g/dL Globulin (2.3-3.5) g/dL Albumin/Globulin Ratio (1.2-2.2) Amylase (25-115) U/L Lipase (73-393) U/L Urine Color (YELLOW) Urine Appearance (CLEAR) Urine pH (5.0-8.0) Ur Specific [place] (1.008-1.030) Urine Protein (NEGATIVE) mg/dL Urine Glucose (UA) (NEGATIVE) mg/dL Urine Ketones (NEGATIVE) mg/dL Urine Occult Blood (NEGATIVE) Urine Nitrite (NEGATIVE) Urine Bilirubin (NEGATIVE) Urine Urobilinogen (0.2-1.0) EU/dL Ur Leukocyte Esterase (NEGATIVE) Urine RBC (0-5) Urine WBC (0-5) Ur Epithelial Cells Amorphous Sediment Urine Bacteria Urine Mucus Urine Opiates Screen (NEGATIVE) Ur Oxycodone Screen (NEGATIVE) Urine Methadone Screen (NEGATIVE) Ur Propoxyphene Screen (NEGATIVE) Ur Barbiturates Screen (NEGATIVE) Ur Tricyclics Screen (NEGATIVE) Ur Phencyclidine Scrn (NEGATIVE) Ur Amphetamine Screen (NEGATIVE) U Methamphetamines Scrn (NEGATIVE) Urine MDMA Screen (NEGATIVE) U Benzodiazepines Scrn (NEGATIVE) U Cocaine Metab Screen (NEGATIVE) U Marijuana (THC) Screen (NEGATIVE) Influenza Type A RNA (NEGATIVE) RSV RNA (INAAT) (NEGATIVE) Influenza Type B RNA (NEGATIVE) SARS-CoV-2 RNA ([place]) (NEGATIVE) 12/30/20 12/30/20 12/30/20 Range/Units 03:25 04:36 05:13 WBC (4.5-11.0) K/uL RBC (4.30-5.90) M/uL Hgb (12.0-15.0) g/dL Hct (40.0-54.0) % MCV (80-98) fL MCH (27-31) pg MCHC (32-36) % Plt Count (150-400) K/uL PT (9.5-12.0) sec INR (0.80-1.20) Sodium (140-148) mmol/L Potassium (3.6-5.2) mmol/L Chloride (100-108) mmol/L Carbon Dioxide (21-32) mmol/L Anion Gap (5.0-14.0) mmol/L BUN (7-18) mg/dL Creatinine (0.8-1.3) mg/dL Est Cr Clr Drug Dosing mL/min Estimated GFR (MDRD) (>60) Glucose (74-106) mg/dL Lactic Acid (0.4-2.0) mmol/L Calcium (8.5-10.1) mg/dL Magnesium (1.8-2.4) mg/dL Total Bilirubin (0.2-1.0) mg/dL Direct Bilirubin (0.0-0.2) mg/dL Indirect Bilirubin AST (15-37) U/L ALT (12-78) U/L Alkaline Phosphatase (46-116) U/L C-Reactive Protein (0.0-0.3) mg/dL Total Protein (6.4-8.2) g/dL Albumin (3.4-5.0) g/dL Globulin (2.3-3.5) g/dL Albumin/Globulin Ratio (1.2-2.2) Amylase (25-115) U/L Lipase (73-393) U/L Urine Color Yellow (YELLOW) Urine Appearance Clear (CLEAR) Urine pH 6.5 (5.0-8.0) Ur Specific [place] 1.020 (1.008-1.030) Urine Protein Negative (NEGATIVE) mg/dL Urine Glucose (UA) Negative (NEGATIVE) mg/dL Urine Ketones Negative (NEGATIVE) mg/dL Urine Occult Blood Negative (NEGATIVE) Urine Nitrite Negative (NEGATIVE) Urine Bilirubin Negative (NEGATIVE) Urine Urobilinogen 1.0 (0.2-1.0) EU/dL Ur Leukocyte Esterase Negative (NEGATIVE) Urine RBC 0-5 (0-5) Urine WBC 0-5 (0-5) Ur Epithelial Cells Few Amorphous Sediment Rare Urine Bacteria Rare Urine Mucus Not seen Urine Opiates Screen Negative (NEGATIVE) Ur Oxycodone Screen Presumptive positive H (NEGATIVE) Urine Methadone Screen Negative (NEGATIVE) Ur Propoxyphene Screen Negative (NEGATIVE) Ur Barbiturates Screen Negative (NEGATIVE) Ur Tricyclics Screen Presumptive positive H (NEGATIVE) Ur Phencyclidine Scrn Negative (NEGATIVE) Ur Amphetamine Screen Negative (NEGATIVE) U Methamphetamines Scrn Negative (NEGATIVE) Urine MDMA Screen Negative (NEGATIVE) U Benzodiazepines Scrn Negative (NEGATIVE) U Cocaine Metab Screen Negative (NEGATIVE) U Marijuana (THC) Screen Presumptive positive H (NEGATIVE) Influenza Type A RNA Negative (NEGATIVE) RSV RNA (INAAT) Negative (NEGATIVE) Influenza Type B RNA Negative (NEGATIVE) SARS-CoV-2 RNA ([place]) Negative (NEGATIVE) 12/30/20 12/30/20 12/30/20 Range/Units 07:03 07:03 07:03 WBC (4.5-11.0) K/uL RBC (4.30-5.90) M/uL Hgb (12.0-15.0) g/dL Hct (40.0-54.0) % MCV (80-98) fL MCH (27-31) pg MCHC (32-36) % Plt Count (150-400) K/uL PT 12.0 (9.5-12.0) sec INR 1.10 (0.80-1.20) Sodium (140-148) mmol/L Potassium (3.6-5.2) mmol/L Chloride (100-108) mmol/L Carbon Dioxide (21-32) mmol/L Anion Gap (5.0-14.0) mmol/L BUN (7-18) mg/dL Creatinine (0.8-1.3) mg/dL Est Cr Clr Drug Dosing mL/min Estimated GFR (MDRD) (>60) Glucose (74-106) mg/dL Lactic Acid (0.4-2.0) mmol/L Calcium (8.5-10.1) mg/dL Magnesium (1.8-2.4) mg/dL Total Bilirubin 0.8 (0.2-1.0) mg/dL Direct Bilirubin 0.41 H (0.0-0.2) mg/dL Indirect Bilirubin 0.39 AST 43 H (15-37) U/L ALT 47 (12-78) U/L Alkaline Phosphatase 183 H (46-116) U/L C-Reactive Protein (0.0-0.3) mg/dL Total Protein 3.9 L (6.4-8.2) g/dL Albumin 1.4 L (3.4-5.0) g/dL Globulin 2.5 (2.3-3.5) g/dL Albumin/Globulin Ratio 0.6 L (1.2-2.2) Amylase 16 L (25-115) U/L Lipase 17 L (73-393) U/L Urine Color (YELLOW) Urine Appearance (CLEAR) Urine pH (5.0-8.0) Ur Specific [place] (1.008-1.030) Urine Protein (NEGATIVE) mg/dL Urine Glucose (UA) (NEGATIVE) mg/dL Urine Ketones (NEGATIVE) mg/dL Urine Occult Blood (NEGATIVE) Urine Nitrite (NEGATIVE) Urine Bilirubin (NEGATIVE) Urine Urobilinogen (0.2-1.0) EU/dL Ur Leukocyte Esterase (NEGATIVE) Urine RBC (0-5) Urine WBC (0-5) Ur Epithelial Cells Amorphous Sediment Urine Bacteria Urine Mucus Urine Opiates Screen (NEGATIVE) Ur Oxycodone Screen (NEGATIVE) Urine Methadone Screen (NEGATIVE) Ur Propoxyphene Screen (NEGATIVE) Ur Barbiturates Screen (NEGATIVE) Ur Tricyclics Screen (NEGATIVE) Ur Phencyclidine Scrn (NEGATIVE) Ur Amphetamine Screen (NEGATIVE) U Methamphetamines Scrn (NEGATIVE) Urine MDMA Screen (NEGATIVE) U Benzodiazepines Scrn (NEGATIVE) U Cocaine Metab Screen (NEGATIVE) U Marijuana (THC) Screen (NEGATIVE) Influenza Type A RNA (NEGATIVE) RSV RNA (INAAT) (NEGATIVE) Influenza Type B RNA (NEGATIVE) SARS-CoV-2 RNA ([place]) (NEGATIVE) 12/30/20 12/30/20 12/30/20 Range/Units 07:03 07:03 07:06 WBC (4.5-11.0) K/uL RBC (4.30-5.90) M/uL Hgb (12.0-15.0) g/dL Hct (40.0-54.0) % MCV (80-98) fL MCH (27-31) pg MCHC (32-36) % Plt Count (150-400) K/uL PT (9.5-12.0) sec INR (0.80-1.20) Sodium (140-148) mmol/L Potassium 2.7 L* (3.6-5.2) mmol/L Chloride (100-108) mmol/L Carbon Dioxide (21-32) mmol/L Anion Gap (5.0-14.0) mmol/L BUN (7-18) mg/dL Creatinine (0.8-1.3) mg/dL Est Cr Clr Drug Dosing mL/min Estimated GFR (MDRD) (>60) Glucose (74-106) mg/dL Lactic Acid 3.0 H (0.4-2.0) mmol/L Calcium (8.5-10.1) mg/dL Magnesium (1.8-2.4) mg/dL Total Bilirubin (0.2-1.0) mg/dL Direct Bilirubin (0.0-0.2) mg/dL Indirect Bilirubin AST (15-37) U/L ALT (12-78) U/L Alkaline Phosphatase (46-116) U/L C-Reactive Protein 8.29 H (0.0-0.3) mg/dL Total Protein (6.4-8.2) g/dL Albumin (3.4-5.0) g/dL Globulin (2.3-3.5) g/dL Albumin/Globulin Ratio (1.2-2.2) Amylase (25-115) U/L Lipase (73-393) U/L Urine Color (YELLOW) Urine Appearance (CLEAR) Urine pH (5.0-8.0) Ur Specific [place] (1.008-1.030) Urine Protein (NEGATIVE) mg/dL Urine Glucose (UA) (NEGATIVE) mg/dL Urine Ketones (NEGATIVE) mg/dL Urine Occult Blood (NEGATIVE) Urine Nitrite (NEGATIVE) Urine Bilirubin (NEGATIVE) Urine Urobilinogen (0.2-1.0) EU/dL Ur Leukocyte Esterase (NEGATIVE) Urine RBC (0-5) Urine WBC (0-5) Ur Epithelial Cells Amorphous Sediment Urine Bacteria Urine Mucus Urine Opiates Screen (NEGATIVE) Ur Oxycodone Screen (NEGATIVE) Urine Methadone Screen (NEGATIVE) Ur Propoxyphene Screen (NEGATIVE) Ur Barbiturates Screen (NEGATIVE) Ur Tricyclics Screen (NEGATIVE) Ur Phencyclidine Scrn (NEGATIVE) Ur Amphetamine Screen (NEGATIVE) U Methamphetamines Scrn (NEGATIVE) Urine MDMA Screen (NEGATIVE) U Benzodiazepines Scrn (NEGATIVE) U Cocaine Metab Screen (NEGATIVE) U Marijuana (THC) Screen (NEGATIVE) Influenza Type A RNA (NEGATIVE) RSV RNA (INAAT) (NEGATIVE) Influenza Type B RNA (NEGATIVE) SARS-CoV-2 RNA ([place]) (NEGATIVE) 12/30/20 Range/Units 12:54 WBC (4.5-11.0) K/uL RBC (4.30-5.90) M/uL Hgb (12.0-15.0) g/dL Hct (40.0-54.0) % MCV (80-98) fL MCH (27-31) pg MCHC (32-36) % Plt Count (150-400) K/uL PT (9.5-12.0) sec INR (0.80-1.20) Sodium 134 L (140-148) mmol/L Potassium 2.8 L* (3.6-5.2) mmol/L Chloride 95 L (100-108) mmol/L Carbon Dioxide 31 (21-32) mmol/L Anion Gap 10.8 (5.0-14.0) mmol/L BUN 13 (7-18) mg/dL Creatinine 0.7 L (0.8-1.3) mg/dL Est Cr Clr Drug Dosing 115.36 mL/min Estimated GFR (MDRD) > 60 (>60) Glucose 153 H (74-106) mg/dL Lactic Acid (0.4-2.0) mmol/L Calcium 7.1 L (8.5-10.1) mg/dL Magnesium 2.2 (1.8-2.4) mg/dL Total Bilirubin (0.2-1.0) mg/dL Direct Bilirubin (0.0-0.2) mg/dL Indirect Bilirubin AST (15-37) U/L ALT (12-78) U/L Alkaline Phosphatase (46-116) U/L C-Reactive Protein (0.0-0.3) mg/dL Total Protein (6.4-8.2) g/dL Albumin (3.4-5.0) g/dL Globulin (2.3-3.5) g/dL Albumin/Globulin Ratio (1.2-2.2) Amylase (25-115) U/L Lipase (73-393) U/L Urine Color (YELLOW) Urine Appearance (CLEAR) Urine pH (5.0-8.0) Ur Specific [place] (1.008-1.030) Urine Protein (NEGATIVE) mg/dL Urine Glucose (UA) (NEGATIVE) mg/dL Urine Ketones (NEGATIVE) mg/dL Urine Occult Blood (NEGATIVE) Urine Nitrite (NEGATIVE) Urine Bilirubin (NEGATIVE) Urine Urobilinogen (0.2-1.0) EU/dL Ur Leukocyte Esterase (NEGATIVE) Urine RBC (0-5) Urine WBC (0-5) Ur Epithelial Cells Amorphous Sediment Urine Bacteria Urine Mucus Urine Opiates Screen (NEGATIVE) Ur Oxycodone Screen (NEGATIVE) Urine Methadone Screen (NEGATIVE) Ur Propoxyphene Screen (NEGATIVE) Ur Barbiturates Screen (NEGATIVE) Ur Tricyclics Screen (NEGATIVE) Ur Phencyclidine Scrn (NEGATIVE) Ur Amphetamine Screen (NEGATIVE) U Methamphetamines Scrn (NEGATIVE) Urine MDMA Screen (NEGATIVE) U Benzodiazepines Scrn (NEGATIVE) U Cocaine Metab Screen (NEGATIVE) U Marijuana (THC) Screen (NEGATIVE) Influenza Type A RNA (NEGATIVE) RSV RNA (INAAT) (NEGATIVE) Influenza Type B RNA (NEGATIVE) SARS-CoV-2 RNA ([place]) (NEGATIVE) Med Orders - Current: Current Medications Acetaminophen (Acetaminophen 325 Mg Tab) 650 mg PO Q4H PRN PRN Reason: Pain (Mild 1-3)/fever Albuterol/Ipratropium (Albuterol/Ipratropium 3.0-0.5 Mg/3 Ml Neb Soln) 3 ml NEB QIDRT [facility] Last Admin: 12/30/20 14:36 Dose: 3 ml Documented by: Amitriptyline HCl (Amitriptyline 10 Mg Tab) 10 mg PO BEDTIME [facility] Bisacodyl (Bisacodyl 5 Mg Tab) 5 mg PO DAILY PRN PRN Reason: Constipation Docusate Sodium (Docusate Sodium 100 Mg Cap) 100 mg PO BID PRN PRN Reason: Constipation Enoxaparin Sodium (Enoxaparin 40 Mg/0.4 Ml Syringe) 40 mg SUBCUT DAILY [facility] Last Admin: 12/30/20 08:45 Dose: 40 mg Documented by: Gabapentin (Gabapentin 300 Mg Cap) 900 mg PO TID [facility] Last Admin: 12/30/20 15:00 Dose: 900 mg Documented by: Potassium Chloride/Sodium Chloride (Normal Saline With 20 Meq Kcl) 1,000 mls @ 125 mls/hr IV ASDIRECTED [facility] Meropenem 1 gm/ Sodium (Chloride) 100 mls @ 200 mls/hr IV Q8H [facility] Last Admin: 12/30/20 15:00 Dose: 200 mls/hr Documented by: Levofloxacin/Dextrose 750 mg/ (Premix) 150 mls @ 100 mls/hr IV Q24H [facility] Last Admin: 12/30/20 08:43 Dose: 100 mls/hr Documented by: Vancomycin HCl 1.5 gm/ Sodium (Chloride) 250 mls @ 167 mls/hr IV Q12H [facility] Lorazepam (Lorazepam 2 Mg/Ml Sdv) 1 mg IV Q6H PRN PRN Reason: Anxiety Methylprednisolone Sodium Succinate (Methylprednisolone Sodium Succinate 125 Mg/2 Ml Sdv) 62.5 mg IV Q6H [facility] Last Admin: 12/30/20 13:00 Dose: 62.5 mg Documented by: Metoprolol Tartrate (Metoprolol Tartrate 25 Mg Tab) 12.5 mg PO DAILY [facility] Last Admin: 12/30/20 10:18 Dose: 12.5 mg Documented by: Morphine Sulfate (Morphine 2 Mg/Ml Syringe) 2 mg IVPUSH Q2H PRN PRN Reason: Pain (severe 7-10) Multivitamins/Minerals (Multivitamins With Iron/Calcium/Folic Acid/Minerals Tab) 1 tab PO DAILY [facility] Last Admin: 12/30/20 08:44 Dose: 1 tab Documented by: Nitroglycerin (Nitroglycerin 0.4 Mg Tab.Sl) 0.4 mg SL ASDIRECTED PRN PRN Reason: Chest Pain Ondansetron HCl (Ondansetron 4 Mg Tab.Dis) 4 mg PO Q6H PRN PRN Reason: Nausea able to take PO Ondansetron HCl (Ondansetron 4 Mg/2 Ml Sdv) 4 mg IV Q4H PRN PRN Reason: Nausea/Vomiting Oxycodone/Acetaminophen (Acetaminophen/Oxycodone 325-10 Mg Tab) 1 tab PO Q6H PRN PRN Reason: Pain Pantoprazole Sodium (Pantoprazole 40 Mg Tab.Cr) 40 mg PO ACBREAKFAST [facility] Last Admin: 12/30/20 08:43 Dose: 40 mg Documented by: Trazodone HCl (Trazodone 50 Mg Tab) 50 mg PO BEDTIME [facility] Discontinued Medications Albuterol (Albuterol 0.083% 2.5 Mg/3 Ml Neb Soln) 2.5 mg NEB ONETIME ONE Stop: 12/30/20 02:34 Last Admin: 12/30/20 02:48 Dose: 2.5 mg Documented by: Albuterol/Ipratropium (Albuterol/Ipratropium 3.0-0.5 Mg/3 Ml Neb Soln) 3 ml NEB QID [facility] Last Admin: 12/30/20 10:52 Dose: 3 ml Documented by: Potassium Chloride/Sodium Chloride (Normal Saline With 20 Meq Kcl) 1,000 mls @ 125 mls/hr IV ASDIRECTED [facility] Last Admin: 12/30/20 04:27 Dose: 125 mls/hr Documented by: Magnesium Sulfate (Magnesium Sulfate In Water 2 Gm/50 Ml) 2 gm in 50 mls @ 12.5 mls/hr IV ONETIME ONE Stop: 12/30/20 07:29 Last Admin: 12/30/20 04:27 Dose: 12.5 mls/hr Documented by: Sodium Chloride (Normal Saline) 1,000 mls @ 125 mls/hr IV ASDIRECTED [facility] Vancomycin HCl 2 gm/ Sodium (Chloride) 500 mls @ 250 mls/hr IV ONETIME ONE Stop: 12/30/20 11:59 Last Admin: 12/30/20 10:26 Dose: 250 mls/hr Documented by: Potassium Chloride 20 meq/Lidocaine HCl 2 ml/ Sodium Chloride 112 mls @ 56 mls/hr IV Q2H [facility] Stop: 12/30/20 14:59 Last Admin: 12/30/20 13:32 Dose: 56 mls/hr Documented by: Magnesium Oxide (Magnesium Oxide 400 Mg Tab) 400 mg PO ONETIME ONE Stop: 12/30/20 03:32 Last Admin: 12/30/20 04:20 Dose: 400 mg Documented by: Methylprednisolone Sodium Succinate (Methylprednisolone Sodium Succinate 125 Mg/2 Ml Sdv) 125 mg IV ONETIME ONE Stop: 12/30/20 06:08 Last Admin: 12/30/20 07:41 Dose: 125 mg Documented by: Potassium Chloride (Potassium Chloride 20 Meq Tab.Er) 20 meq PO ONETIME ONE Stop: 12/30/20 03:16 Last Admin: 12/30/20 03:31 Dose: 20 meq Documented by: Potassium Chloride (Potassium Chloride 20 Meq Tab.Er) 40 meq PO ONETIME ONE Stop: 12/30/20 04:20 Last Admin: 12/30/20 04:29 Dose: 40 meq Documented by: Potassium Chloride (Potassium Chloride 20 Meq Tab.Er) 40 meq PO ONETIME ONE Stop: 12/30/20 11:01 Last Admin: 12/30/20 11:51 Dose: 40 meq Documented by: Potassium Chloride (Potassium Chloride 20 Meq Tab.Er) 40 meq PO ONETIME ONE Stop: 12/30/20 15:34 Vancomycin HCl (Vancomycin 1 Gm Sdv) 1 gm IV .PHARMACY TO DOSE [facility] Stop: 12/30/20 09:01 - Exam Quality Assessment: Supplemental Oxygen, DVT Prophylaxis General: Lethargic Lungs: Clear to Auscultation, Normal Respiratory Effort, Decreased Breath Sounds. No: Rales, Rhonchi, Wheezing Cardiovascular: Regular Rate, Regular Rhythm, No Murmurs GI/Abdominal Exam: Soft, Non-Tender, No Organomegaly, No Distention, No Abnormal Bruit Extremities: Non-Tender, No Pedal Edema Skin: Other (Decubitus ulcer which does not appear to be very wide but does appear to be deep no obvious purulent drainage noted) - Patient Data Lab Results Last 24 hrs: Laboratory Results - last 24 hr 12/30/20 12/30/20 12/30/20 Range/Units 03:10 03:10 03:10 WBC 19.5 H (4.5-11.0) K/uL RBC 4.02 L (4.30-5.90) M/uL Hgb 12.3 (12.0-15.0) g/dL Hct 35.3 L (40.0-54.0) % MCV 88 (80-98) fL MCH 31 (27-31) pg MCHC 35 (32-36) % Plt Count 281 (150-400) K/uL PT (9.5-12.0) sec INR (0.80-1.20) Sodium (140-148) mmol/L Potassium (3.6-5.2) mmol/L Chloride (100-108) mmol/L Carbon Dioxide (21-32) mmol/L Anion Gap (5.0-14.0) mmol/L BUN (7-18) mg/dL Creatinine (0.8-1.3) mg/dL Est Cr Clr Drug Dosing mL/min Estimated GFR (MDRD) (>60) Glucose (74-106) mg/dL Lactic Acid 2.4 H (0.4-2.0) mmol/L Calcium (8.5-10.1) mg/dL Magnesium (1.8-2.4) mg/dL Total Bilirubin (0.2-1.0) mg/dL Direct Bilirubin (0.0-0.2) mg/dL Indirect Bilirubin AST (15-37) U/L ALT (12-78) U/L Alkaline Phosphatase (46-116) U/L C-Reactive Protein 7.02 H (0.0-0.3) mg/dL Total Protein (6.4-8.2) g/dL Albumin (3.4-5.0) g/dL Globulin (2.3-3.5) g/dL Albumin/Globulin Ratio (1.2-2.2) Amylase (25-115) U/L Lipase (73-393) U/L Urine Color (YELLOW) Urine Appearance (CLEAR) Urine pH (5.0-8.0) Ur Specific [place] (1.008-1.030) Urine Protein (NEGATIVE) mg/dL Urine Glucose (UA) (NEGATIVE) mg/dL Urine Ketones (NEGATIVE) mg/dL Urine Occult Blood (NEGATIVE) Urine Nitrite (NEGATIVE) Urine Bilirubin (NEGATIVE) Urine Urobilinogen (0.2-1.0) EU/dL Ur Leukocyte Esterase (NEGATIVE) Urine RBC (0-5) Urine WBC (0-5) Ur Epithelial Cells Amorphous Sediment Urine Bacteria Urine Mucus Urine Opiates Screen (NEGATIVE) Ur Oxycodone Screen (NEGATIVE) Urine Methadone Screen (NEGATIVE) Ur Propoxyphene Screen (NEGATIVE) Ur Barbiturates Screen (NEGATIVE) Ur Tricyclics Screen (NEGATIVE) Ur Phencyclidine Scrn (NEGATIVE) Ur Amphetamine Screen (NEGATIVE) U Methamphetamines Scrn (NEGATIVE) Urine MDMA Screen (NEGATIVE) U Benzodiazepines Scrn (NEGATIVE) U Cocaine Metab Screen (NEGATIVE) U Marijuana (THC) Screen (NEGATIVE) Influenza Type A RNA (NEGATIVE) RSV RNA (INAAT) (NEGATIVE) Influenza Type B RNA (NEGATIVE) SARS-CoV-2 RNA ([place]) (NEGATIVE) 12/30/20 12/30/20 12/30/20 Range/Units 03:10 03:10 03:23 WBC (4.5-11.0) K/uL RBC (4.30-5.90) M/uL Hgb (12.0-15.0) g/dL Hct (40.0-54.0) % MCV (80-98) fL MCH (27-31) pg MCHC (32-36) % Plt Count (150-400) K/uL PT (9.5-12.0) sec INR (0.80-1.20) Sodium 129 L (140-148) mmol/L Potassium 2.2 L* (3.6-5.2) mmol/L Chloride 92 L (100-108) mmol/L Carbon Dioxide 27 (21-32) mmol/L Anion Gap 12.2 (5.0-14.0) mmol/L BUN 17 (7-18) mg/dL Creatinine 0.8 (0.8-1.3) mg/dL Est Cr Clr Drug Dosing 100.94 mL/min Estimated GFR (MDRD) > 60 (>60) Glucose 106 (74-106) mg/dL Lactic Acid (0.4-2.0) mmol/L Calcium 6.7 L* (8.5-10.1) mg/dL Magnesium 1.5 L (1.8-2.4) mg/dL Total Bilirubin (0.2-1.0) mg/dL Direct Bilirubin (0.0-0.2) mg/dL Indirect Bilirubin AST (15-37) U/L ALT (12-78) U/L Alkaline Phosphatase (46-116) U/L C-Reactive Protein (0.0-0.3) mg/dL Total Protein (6.4-8.2) g/dL Albumin 1.1 L (3.4-5.0) g/dL Globulin (2.3-3.5) g/dL Albumin/Globulin Ratio (1.2-2.2) Amylase (25-115) U/L Lipase (73-393) U/L Urine Color (YELLOW) Urine Appearance (CLEAR) Urine pH (5.0-8.0) Ur Specific [place] (1.008-1.030) Urine Protein (NEGATIVE) mg/dL Urine Glucose (UA) (NEGATIVE) mg/dL Urine Ketones (NEGATIVE) mg/dL Urine Occult Blood (NEGATIVE) Urine Nitrite (NEGATIVE) Urine Bilirubin (NEGATIVE) Urine Urobilinogen (0.2-1.0) EU/dL Ur Leukocyte Esterase (NEGATIVE) Urine RBC (0-5) Urine WBC (0-5) Ur Epithelial Cells Amorphous Sediment Urine Bacteria Urine Mucus Urine Opiates Screen (NEGATIVE) Ur Oxycodone Screen (NEGATIVE) Urine Methadone Screen (NEGATIVE) Ur Propoxyphene Screen (NEGATIVE) Ur Barbiturates Screen (NEGATIVE) Ur Tricyclics Screen (NEGATIVE) Ur Phencyclidine Scrn (NEGATIVE) Ur Amphetamine Screen (NEGATIVE) U Methamphetamines Scrn (NEGATIVE) Urine MDMA Screen (NEGATIVE) U Benzodiazepines Scrn (NEGATIVE) U Cocaine Metab Screen (NEGATIVE) U Marijuana (THC) Screen (NEGATIVE) Influenza Type A RNA (NEGATIVE) RSV RNA (INAAT) (NEGATIVE) Influenza Type B RNA (NEGATIVE) SARS-CoV-2 RNA ([place]) (NEGATIVE) 12/30/20 12/30/20 12/30/20 Range/Units 03:25 04:36 05:13 WBC (4.5-11.0) K/uL RBC (4.30-5.90) M/uL Hgb (12.0-15.0) g/dL Hct (40.0-54.0) % MCV (80-98) fL MCH (27-31) pg MCHC (32-36) % Plt Count (150-400) K/uL PT (9.5-12.0) sec INR (0.80-1.20) Sodium (140-148) mmol/L Potassium (3.6-5.2) mmol/L Chloride (100-108) mmol/L Carbon Dioxide (21-32) mmol/L Anion Gap (5.0-14.0) mmol/L BUN (7-18) mg/dL Creatinine (0.8-1.3) mg/dL Est Cr Clr Drug Dosing mL/min Estimated GFR (MDRD) (>60) Glucose (74-106) mg/dL Lactic Acid (0.4-2.0) mmol/L Calcium (8.5-10.1) mg/dL Magnesium (1.8-2.4) mg/dL Total Bilirubin (0.2-1.0) mg/dL Direct Bilirubin (0.0-0.2) mg/dL Indirect Bilirubin AST (15-37) U/L ALT (12-78) U/L Alkaline Phosphatase (46-116) U/L C-Reactive Protein (0.0-0.3) mg/dL Total Protein (6.4-8.2) g/dL Albumin (3.4-5.0) g/dL Globulin (2.3-3.5) g/dL Albumin/Globulin Ratio (1.2-2.2) Amylase (25-115) U/L Lipase (73-393) U/L Urine Color Yellow (YELLOW) Urine Appearance Clear (CLEAR) Urine pH 6.5 (5.0-8.0) Ur Specific [place] 1.020 (1.008-1.030) Urine Protein Negative (NEGATIVE) mg/dL Urine Glucose (UA) Negative (NEGATIVE) mg/dL Urine Ketones Negative (NEGATIVE) mg/dL Urine Occult Blood Negative (NEGATIVE) Urine Nitrite Negative (NEGATIVE) Urine Bilirubin Negative (NEGATIVE) Urine Urobilinogen 1.0 (0.2-1.0) EU/dL Ur Leukocyte Esterase Negative (NEGATIVE) Urine RBC 0-5 (0-5) Urine WBC 0-5 (0-5) Ur Epithelial Cells Few Amorphous Sediment Rare Urine Bacteria Rare Urine Mucus Not seen Urine Opiates Screen Negative (NEGATIVE) Ur Oxycodone Screen Presumptive positive H (NEGATIVE) Urine Methadone Screen Negative (NEGATIVE) Ur Propoxyphene Screen Negative (NEGATIVE) Ur Barbiturates Screen Negative (NEGATIVE) Ur Tricyclics Screen Presumptive positive H (NEGATIVE) Ur Phencyclidine Scrn Negative (NEGATIVE) Ur Amphetamine Screen Negative (NEGATIVE) U Methamphetamines Scrn Negative (NEGATIVE) Urine MDMA Screen Negative (NEGATIVE) U Benzodiazepines Scrn Negative (NEGATIVE) U Cocaine Metab Screen Negative (NEGATIVE) U Marijuana (THC) Screen Presumptive positive H (NEGATIVE) Influenza Type A RNA Negative (NEGATIVE) RSV RNA (INAAT) Negative (NEGATIVE) Influenza Type B RNA Negative (NEGATIVE) SARS-CoV-2 RNA (DEWAYNE) Negative (NEGATIVE) 12/30/20 12/30/20 12/30/20 Range/Units 07:03 07:03 07:03 WBC (4.5-11.0) K/uL RBC (4.30-5.90) M/uL Hgb (12.0-15.0) g/dL Hct (40.0-54.0) % MCV (80-98) fL MCH (27-31) pg MCHC (32-36) % Plt Count (150-400) K/uL PT 12.0 (9.5-12.0) sec INR 1.10 (0.80-1.20) Sodium (140-148) mmol/L Potassium (3.6-5.2) mmol/L Chloride (100-108) mmol/L Carbon Dioxide (21-32) mmol/L Anion Gap (5.0-14.0) mmol/L BUN (7-18) mg/dL Creatinine (0.8-1.3) mg/dL Est Cr Clr Drug Dosing mL/min Estimated GFR (MDRD) (>60) Glucose (74-106) mg/dL Lactic Acid (0.4-2.0) mmol/L Calcium (8.5-10.1) mg/dL Magnesium (1.8-2.4) mg/dL Total Bilirubin 0.8 (0.2-1.0) mg/dL Direct Bilirubin 0.41 H (0.0-0.2) mg/dL Indirect Bilirubin 0.39 AST 43 H (15-37) U/L ALT 47 (12-78) U/L Alkaline Phosphatase 183 H (46-116) U/L C-Reactive Protein (0.0-0.3) mg/dL Total Protein 3.9 L (6.4-8.2) g/dL Albumin 1.4 L (3.4-5.0) g/dL Globulin 2.5 (2.3-3.5) g/dL Albumin/Globulin Ratio 0.6 L (1.2-2.2) Amylase 16 L (25-115) U/L Lipase 17 L (73-393) U/L Urine Color (YELLOW) Urine Appearance (CLEAR) Urine pH (5.0-8.0) Ur Specific [place] (1.008-1.030) Urine Protein (NEGATIVE) mg/dL Urine Glucose (UA) (NEGATIVE) mg/dL Urine Ketones (NEGATIVE) mg/dL Urine Occult Blood (NEGATIVE) Urine Nitrite (NEGATIVE) Urine Bilirubin (NEGATIVE) Urine Urobilinogen (0.2-1.0) EU/dL Ur Leukocyte Esterase (NEGATIVE) Urine RBC (0-5) Urine WBC (0-5) Ur Epithelial Cells Amorphous Sediment Urine Bacteria Urine Mucus Urine Opiates Screen (NEGATIVE) Ur Oxycodone Screen (NEGATIVE) Urine Methadone Screen (NEGATIVE) Ur Propoxyphene Screen (NEGATIVE) Ur Barbiturates Screen (NEGATIVE) Ur Tricyclics Screen (NEGATIVE) Ur Phencyclidine Scrn (NEGATIVE) Ur Amphetamine Screen (NEGATIVE) U Methamphetamines Scrn (NEGATIVE) Urine MDMA Screen (NEGATIVE) U Benzodiazepines Scrn (NEGATIVE) U Cocaine Metab Screen (NEGATIVE) U Marijuana (THC) Screen (NEGATIVE) Influenza Type A RNA (NEGATIVE) RSV RNA (INAAT) (NEGATIVE) Influenza Type B RNA (NEGATIVE) SARS-CoV-2 RNA ([place]) (NEGATIVE) 12/30/20 12/30/20 12/30/20 Range/Units 07:03 07:03 07:06 WBC (4.5-11.0) K/uL RBC (4.30-5.90) M/uL Hgb (12.0-15.0) g/dL Hct (40.0-54.0) % MCV (80-98) fL MCH (27-31) pg MCHC (32-36) % Plt Count (150-400) K/uL PT (9.5-12.0) sec INR (0.80-1.20) Sodium (140-148) mmol/L Potassium 2.7 L* (3.6-5.2) mmol/L Chloride (100-108) mmol/L Carbon Dioxide (21-32) mmol/L Anion Gap (5.0-14.0) mmol/L BUN (7-18) mg/dL Creatinine (0.8-1.3) mg/dL Est Cr Clr Drug Dosing mL/min Estimated GFR (MDRD) (>60) Glucose (74-106) mg/dL Lactic Acid 3.0 H (0.4-2.0) mmol/L Calcium (8.5-10.1) mg/dL Magnesium (1.8-2.4) mg/dL Total Bilirubin (0.2-1.0) mg/dL Direct Bilirubin (0.0-0.2) mg/dL Indirect Bilirubin AST (15-37) U/L ALT (12-78) U/L Alkaline Phosphatase (46-116) U/L C-Reactive Protein 8.29 H (0.0-0.3) mg/dL Total Protein (6.4-8.2) g/dL Albumin (3.4-5.0) g/dL Globulin (2.3-3.5) g/dL Albumin/Globulin Ratio (1.2-2.2) Amylase (25-115) U/L Lipase (73-393) U/L Urine Color (YELLOW) Urine Appearance (CLEAR) Urine pH (5.0-8.0) Ur Specific [place] (1.008-1.030) Urine Protein (NEGATIVE) mg/dL Urine Glucose (UA) (NEGATIVE) mg/dL Urine Ketones (NEGATIVE) mg/dL Urine Occult Blood (NEGATIVE) Urine Nitrite (NEGATIVE) Urine Bilirubin (NEGATIVE) Urine Urobilinogen (0.2-1.0) EU/dL Ur Leukocyte Esterase (NEGATIVE) Urine RBC (0-5) Urine WBC (0-5) Ur Epithelial Cells Amorphous Sediment Urine Bacteria Urine Mucus Urine Opiates Screen (NEGATIVE) Ur Oxycodone Screen (NEGATIVE) Urine Methadone Screen (NEGATIVE) Ur Propoxyphene Screen (NEGATIVE) Ur Barbiturates Screen (NEGATIVE) Ur Tricyclics Screen (NEGATIVE) Ur Phencyclidine Scrn (NEGATIVE) Ur Amphetamine Screen (NEGATIVE) U Methamphetamines Scrn (NEGATIVE) Urine MDMA Screen (NEGATIVE) U Benzodiazepines Scrn (NEGATIVE) U Cocaine Metab Screen (NEGATIVE) U Marijuana (THC) Screen (NEGATIVE) Influenza Type A RNA (NEGATIVE) RSV RNA (INAAT) (NEGATIVE) Influenza Type B RNA (NEGATIVE) SARS-CoV-2 RNA ([place]) (NEGATIVE) 12/30/20 Range/Units 12:54 WBC (4.5-11.0) K/uL RBC (4.30-5.90) M/uL Hgb (12.0-15.0) g/dL Hct (40.0-54.0) % MCV (80-98) fL MCH (27-31) pg MCHC (32-36) % Plt Count (150-400) K/uL PT (9.5-12.0) sec INR (0.80-1.20) Sodium 134 L (140-148) mmol/L Potassium 2.8 L* (3.6-5.2) mmol/L Chloride 95 L (100-108) mmol/L Carbon Dioxide 31 (21-32) mmol/L Anion Gap 10.8 (5.0-14.0) mmol/L BUN 13 (7-18) mg/dL Creatinine 0.7 L (0.8-1.3) mg/dL Est Cr Clr Drug Dosing 115.36 mL/min Estimated GFR (MDRD) > 60 (>60) Glucose 153 H (74-106) mg/dL Lactic Acid (0.4-2.0) mmol/L Calcium 7.1 L (8.5-10.1) mg/dL Magnesium 2.2 (1.8-2.4) mg/dL Total Bilirubin (0.2-1.0) mg/dL Direct Bilirubin (0.0-0.2) mg/dL Indirect Bilirubin AST (15-37) U/L ALT (12-78) U/L Alkaline Phosphatase (46-116) U/L C-Reactive Protein (0.0-0.3) mg/dL Total Protein (6.4-8.2) g/dL Albumin (3.4-5.0) g/dL Globulin (2.3-3.5) g/dL Albumin/Globulin Ratio (1.2-2.2) Amylase (25-115) U/L Lipase (73-393) U/L Urine Color (YELLOW) Urine Appearance (CLEAR) Urine pH (5.0-8.0) Ur Specific [place] (1.008-1.030) Urine Protein (NEGATIVE) mg/dL Urine Glucose (UA) (NEGATIVE) mg/dL Urine Ketones (NEGATIVE) mg/dL Urine Occult Blood (NEGATIVE) Urine Nitrite (NEGATIVE) Urine Bilirubin (NEGATIVE) Urine Urobilinogen (0.2-1.0) EU/dL Ur Leukocyte Esterase (NEGATIVE) Urine RBC (0-5) Urine WBC (0-5) Ur Epithelial Cells Amorphous Sediment Urine Bacteria Urine Mucus Urine Opiates Screen (NEGATIVE) Ur Oxycodone Screen (NEGATIVE) Urine Methadone Screen (NEGATIVE) Ur Propoxyphene Screen (NEGATIVE) Ur Barbiturates Screen (NEGATIVE) Ur Tricyclics Screen (NEGATIVE) Ur Phencyclidine Scrn (NEGATIVE) Ur Amphetamine Screen (NEGATIVE) U Methamphetamines Scrn (NEGATIVE) Urine MDMA Screen (NEGATIVE) U Benzodiazepines Scrn (NEGATIVE) U Cocaine Metab Screen (NEGATIVE) U Marijuana (THC) Screen (NEGATIVE) Influenza Type A RNA (NEGATIVE) RSV RNA (INAAT) (NEGATIVE) Influenza Type B RNA (NEGATIVE) SARS-CoV-2 RNA ([place]) (NEGATIVE) Result Diagrams: 12/30/20 03:10 12/30/20 12:54 Sepsis Event Note - Evaluation Sepsis Screening Result: Sepsis Risk - Focused Exam Vital Signs: Vital Signs Temp Pulse Pulse Resp BP BP BP 12/30/20 14:36 78 12/30/20 14:21 96.5 F L 75 16 96/51 L 12/30/20 12:54 12/30/20 11:12 100 12/30/20 10:20 97.1 F 92 20 101/53 L 12/30/20 10:18 92 101/53 L 12/30/20 07:29 102 H 12/30/20 07:17 12/30/20 06:56 95.9 F L 106 H 16 108/79 12/30/20 06:26 96.8 F L 94 16 101/62 12/30/20 04:27 97.3 F 103 H 14 108/68 Pulse Ox 12/30/20 14:36 12/30/20 14:21 93 L 12/30/20 12:54 96 12/30/20 11:12 12/30/20 10:20 97 12/30/20 10:18 12/30/20 07:29 12/30/20 07:17 96 12/30/20 06:56 91 L 12/30/20 06:26 97 12/30/20 04:27 94 L - Problem List Review Problem List Initiated/Reviewed/Updated: Yes - My Orders Last 24 Hours: My Active Orders 12/30/20 08:30 Levofloxacin/Dextrose 5%-Water [Levaquin in D5W 750 MG/150 ML] 750 mg Premix Bag 1 bag IV Q24H 12/30/20 15:29 Consult to Physician [CONS] Routine 12/30/20 15:30 Notify Provider Consults [RC] ASDIRECTED 12/30/20 19:00 BASIC METABOLIC PANEL,BMP [CHEM] Stat LACTIC ACID [CHEM] Stat 12/30/20 22:00 Vancomycin 1.5 gm Sodium Chloride 0.9% [Normal Saline] 250 ml IV Q12H 12/31/20 05:00 CBC WITH AUTO DIFF [HEME] Timed COMPREHENSIVE METABOLIC PN,CMP [CHEM] Timed LACTIC ACID [CHEM] Timed MAGNESIUM [CHEM] Timed - Plan Plan:: ASSESSMENT AND PLAN COPD exacerbation with bilateral pneumonia-history of recent hospitalization in [place] for pneumonia -Admit to [address] [place] [address] for further monitoring -IV Fluids for rehydration NS at 125 ml/hr -IV Antibiotic; Meropenem, vancomycin, and levofloxacin, secondary to recent hospitalization and IV antibiotic therapy -oxygen to keep sats greater than 95% -IV Solumedrol 62.5 mg every 8 hours -schedule Duo nebs every 6 hours, Albuterol nebs every 4 hours prn -Advise to notify nurses of any chest pain or other symptoms -blood cultures x2 pending Hypokalemia -Oral and IV potassium replacement -Potassium recheck at 7 PM Hypomagnesium -Oral and IV magnesium replacement -Magnesium recheck in a.m. Decubitus ulcer-chronic, receives wound care in [place] -Obtain wound care notes for review -Consult Dr. Lundy for surgical opinion Chronic pain -continue outpatient medication plan Tobacco dependence -Nicotine patch 14 mg daily -encouraged to quit smoking Maintenance issues -Nutrition: regular diet -Paul catheter -not indicated at this time -DVT - Lovenox 40 mg subcut daily -PPI; IV Protonix 40mg daily CODE STATUS: FULL Admission status: Admit to [address] [place] [address] Admission justification. This patient will be admitted for inpatient services and is medically appropriate meeting medical necessity for inpatient admission as outlined in my documentation. I reasonably expect the patient will require inpatient services that span. Time over 2 midnights. I reasonably expect this patient to be discharged or transferred within 96 hours after admission to the [facility] hospital. Disposition: home with Family Primary care provider: Daphney Lundy NP, [facility] Hospitalist: Dr. Thayer
[2020-12-30] MEDS: Acetaminophen/oxyCODONE 325-10 MG Tab PO PRN (16:34)
[2020-12-30] MEDS: Amitriptyline 10 MG Tab PO SCH (20:02)
[2020-12-30] MEDS: traZODone 50 MG Tab PO SCH (20:02)
[2020-12-30] MEDS ORDERED: Calcium Gluconate 2 GM in Sodium Chloride 0.9% 100 ML IV ONE (20:18)
[2020-12-31] MEDS: methylPREDNISolone Sodium Succinate 125 MG/2 ML SDV IV SCH ×4 (00:07→18:06)
[2020-12-31] MEDS: Meropenem 1 GM in Sodium Chloride 0.9% 100 ML IV SCH ×3 (00:07→15:03)
[2020-12-31] MEDS: Acetaminophen/oxyCODONE 325-10 MG Tab PO PRN ×3 (00:07→20:43)
[2020-12-31] MEDS: Albuterol/Ipratropium 3.0-0.5 MG/3 ML Neb Soln NEB SCH ×4 (07:07→20:42)
[2020-12-31] MEDS: Multivitamins with Iron/Calcium/Folic Acid/Minerals Tab PO SCH (08:45)
[2020-12-31] MEDS: Metoprolol Tartrate 25 MG Tab PO SCH (08:47)
[2020-12-31] MEDS: Pantoprazole 40 MG Tab.CR PO SCH (08:55)
[2020-12-31] MEDS: Gabapentin 300 MG Cap PO SCH ×3 (08:56→20:44)
[2020-12-31] MEDS: Enoxaparin 40 MG/0.4 ML Syringe SUBCUT SCH (08:56)
--- NOTE | 2020-12-31 09:09 | PCM.HP.2 ---
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 Onset of Symptoms: Reports: Unknown/Unsure Duration of Symptoms: Reports: Week(s): Other HPI/Comments: Tho has a decubitus Ulcer on his left buttock. He has been following with wound care in [place], [place] and [place]. Surgery was asked to see if he needed any surgical intervention. chronic body pain Pain Score (Numeric/FACES): 8 - Related Data Allergies/Adverse Reactions: Allergies Allergy/AdvReac Type Severity Reaction Status Date / Time codeine Allergy Cannot Verified 12/30/20 01:54 Remember Home Medications: Home Meds Albuterol Sulfate [Albuterol Sulfate HFA] 2 puff INH TID PRN 11/10/13 [History] Formoterol/Mometasone [Dulera 100 MCG/5 MCG] 1 - 2 puff INH BID 11/10/13 [Hist ory] Acetaminophen 650 mg PO Q6HR PRN 02/03/18 [History] Albuterol [Proventil Neb Soln] 2.5 mg NEB Q6HR PRN 02/03/18 [History] Aspirin [Adult Low Dose Aspirin EC] 81 mg PO DAILY 02/03/18 [History] Diclofenac Sodium [Voltaren] 50 mg PO BID PRN 02/03/18 [History] Gabapentin [Neurontin] 900 mg PO TID 02/03/18 [History] Metoprolol Tartrate [Lopressor] 12.5 mg PO DAILY 02/03/18 [History] Multivitamin with Minerals [Multiple Vitamin] 1 tab PO DAILY 02/03/18 [History] Nitroglycerin [Nitrostat] 0.4 mg SL ASDIRECTED PRN 02/03/18 [History] Omeprazole 20 mg PO DAILY 02/03/18 [History] Ondansetron [Zofran ODT] 4 mg PO Q8HR PRN 02/03/18 [History] traZODone HCl [Trazodone HCl] 50 mg PO BEDTIME 02/03/18 [History] Amitriptyline [Elavil] 10 mg PO DAILY 12/30/20 [History] oxyCODONE HCl/Acetaminophen [Percocet 10-325 mg Tablet] 1 tab PO ASDIRECTED PRN 12/30/20 [History] Past Medical History Cardiovascular History: Reports: Heart Failure, Hypertension, PA, PVD Respiratory History: Reports: Asthma, COPD, Sleep Apnea Gastrointestinal History: Reports: GERD Musculoskeletal History: Reports: Back Pain, Chronic, Other (See Below) Other Musculoskeletal History: bad knees. bad left heel Neurological History: Reports: Migraines Psychiatric History: Reports: Anxiety, Depression Endocrine/Metabolic History: Reports: Obesity/BMI 30+, Other (See Below) Other Endocrine/Metabolic History: hypoglycemic Hematologic History: Reports: B12 Deficiency Dermatologic History: Reports: Cellulitis, Other (See Below) Other Dermatologic History: pressure sore left side of buttox, treating since 2001 - Past Surgical History HEENT Surgical History: Reports: Other (See Below) Other HEENT Surgeries/Procedures: nasal surgery Cardiovascular Surgical History: Reports: Other (See Below) Other Cardiovascular Surgeries/Procedures: angiogram GI Surgical History: Reports: Hernia, Abdominal Musculoskeletal Surgical History: Reports: Hip Replacement Social & Family History - Tobacco Use Tobacco Use Status *Q: Current Every Day Tobacco User Years of Tobacco use: 15 Packs/Tins Daily: 0.7 - Caffeine Use Caffeine Use: Reports: Coffee - Recreational Drug Use Recreational Drug Use: Yes - Living Situation & Occupation Living situation: Reports: Single H&P Review of Systems - Review of Systems: Review Of Systems: Comprehensive ROS is negative, except as noted in HPI. Exam - Exam Exam: See Below (Skin: Decubitis Ulcer is examined and is clean and dry. No infection) - Vital Signs Vital Signs: Last Vital Signs Temp 94 F L 12/31/20 04:00 Pulse 85 12/31/20 07:01 Resp 18 12/31/20 07:01 BP 109/55 L 12/31/20 07:01 Pulse Ox 85 L 12/31/20 07:40 Weight: 182 lb - Exam Quality Assessment: DVT Prophylaxis, Skin Breakdown General: Cooperative HEENT: Hearing Intact Neck: Supple Lungs: Decreased Breath Sounds, Crackles Cardiovascular: Regular Rate GI/Abdominal Exam: Soft, No Distention (Male) Exam: Deferred Rectal (Males) Exam: Deferred Back Exam: Normal Inspection Extremities: Normal Inspection Skin: Decubitis (left buttock. Examined by Larry Lundy MD. Clean and dry. Appe ars to be healing. ) Neuro Extensive - Mental Status: Normal Mood/Affect Psychiatric: Labile Mood - Patient Data Lab Results Last 24 hrs: Laboratory Results - last 24 hr 12/30/20 12/30/20 12/30/20 Range/Units 12:54 19:04 19:05 WBC (4.5-11.0) K/uL RBC (4.30-5.90) M/uL Hgb (12.0-15.0) g/dL Hct (40.0-54.0) % MCV (80-98) fL MCH (27-31) pg MCHC (32-36) % Plt Count (150-400) K/uL Neut % (Auto) (36-66) % Lymph % (Auto) (24-44) % [place] % (Auto) (2-6) % Eos % (Auto) (2-4) % Baso % (Auto) (0-1) % Sodium 134 L 140 (140-148) mmol/L Potassium 2.8 L* 3.8 (3.6-5.2) mmol/L Chloride 95 L 101 (100-108) mmol/L Carbon Dioxide 31 27 (21-32) mmol/L Anion Gap 10.8 12.0 (5.0-14.0) mmol/L BUN 13 13 (7-18) mg/dL Creatinine 0.7 L 0.8 (0.8-1.3) mg/dL Est Cr Clr Drug Dosing 115.36 100.94 mL/min Estimated GFR (MDRD) > 60 > 60 (>60) Glucose 153 H 205 H (74-106) mg/dL Lactic Acid 4.2 H (0.4-2.0) mmol/L Calcium 7.1 L 6.9 L* (8.5-10.1) mg/dL Magnesium 2.2 (1.8-2.4) mg/dL Ferritin (8-388) ng/ml Total Bilirubin (0.2-1.0) mg/dL AST (15-37) U/L ALT (12-78) U/L Alkaline Phosphatase (46-116) U/L Total Protein (6.4-8.2) g/dL Albumin (3.4-5.0) g/dL Globulin (2.3-3.5) g/dL Albumin/Globulin Ratio (1.2-2.2) Vitamin B12 (193-986) pg/ml Vitamin D 25-Hydroxy (30-100) ng/mL Folate (8.6-58.9) ng/ml 12/31/20 12/31/20 12/31/20 Range/Units 05:40 05:40 05:40 WBC 25.4 H (4.5-11.0) K/uL RBC 3.72 L (4.30-5.90) M/uL Hgb 11.5 L (12.0-15.0) g/dL Hct 33.1 L (40.0-54.0) % MCV 89 (80-98) fL MCH 31 (27-31) pg MCHC 35 (32-36) % Plt Count 283 (150-400) K/uL Neut % (Auto) 94 H (36-66) % Lymph % (Auto) 4 L (24-44) % [place] % (Auto) 1 L (2-6) % Eos % (Auto) 0 L (2-4) % Baso % (Auto) 0 (0-1) % Sodium 138 L (140-148) mmol/L Potassium 3.4 L (3.6-5.2) mmol/L Chloride 100 (100-108) mmol/L Carbon Dioxide 30 (21-32) mmol/L Anion Gap 11.4 (5.0-14.0) mmol/L BUN 12 (7-18) mg/dL Creatinine 0.7 L (0.8-1.3) mg/dL Est Cr Clr Drug Dosing 115.36 mL/min Estimated GFR (MDRD) > 60 (>60) Glucose 127 H (74-106) mg/dL Lactic Acid 2.3 H (0.4-2.0) mmol/L Calcium 7.3 L (8.5-10.1) mg/dL Magnesium 2.0 (1.8-2.4) mg/dL Ferritin (8-388) ng/ml Total Bilirubin 0.4 (0.2-1.0) mg/dL AST 30 (15-37) U/L ALT 40 (12-78) U/L Alkaline Phosphatase 176 H (46-116) U/L Total Protein 3.6 L (6.4-8.2) g/dL Albumin 1.2 L (3.4-5.0) g/dL Globulin 2.4 (2.3-3.5) g/dL Albumin/Globulin Ratio 0.5 L (1.2-2.2) Vitamin B12 (193-986) pg/ml Vitamin D 25-Hydroxy (30-100) ng/mL Folate (8.6-58.9) ng/ml 12/31/20 12/31/20 Range/Units 07:42 07:42 WBC (4.5-11.0) K/uL RBC (4.30-5.90) M/uL Hgb (12.0-15.0) g/dL Hct (40.0-54.0) % MCV (80-98) fL MCH (27-31) pg MCHC (32-36) % Plt Count (150-400) K/uL Neut % (Auto) (36-66) % Lymph % (Auto) (24-44) % [place] % (Auto) (2-6) % Eos % (Auto) (2-4) % Baso % (Auto) (0-1) % Sodium (140-148) mmol/L Potassium (3.6-5.2) mmol/L Chloride (100-108) mmol/L Carbon Dioxide (21-32) mmol/L Anion Gap (5.0-14.0) mmol/L BUN (7-18) mg/dL Creatinine (0.8-1.3) mg/dL Est Cr Clr Drug Dosing mL/min Estimated GFR (MDRD) (>60) Glucose (74-106) mg/dL Lactic Acid (0.4-2.0) mmol/L Calcium (8.5-10.1) mg/dL Magnesium (1.8-2.4) mg/dL Ferritin 281 (8-388) ng/ml Total Bilirubin (0.2-1.0) mg/dL AST (15-37) U/L ALT (12-78) U/L Alkaline Phosphatase (46-116) U/L Total Protein (6.4-8.2) g/dL Albumin (3.4-5.0) g/dL Globulin (2.3-3.5) g/dL Albumin/Globulin Ratio (1.2-2.2) Vitamin B12 753 (193-986) pg/ml Vitamin D 25-Hydroxy 8.9 L (30-100) ng/mL Folate 5.6 L (8.6-58.9) ng/ml Result Diagrams: 12/31/20 05:40 12/31/20 05:40 Nicholas Results Last 24 hrs: Microbiology 12/30/20 04:00 Aerobic Blood Culture - Preliminary Blood - Arm, Right NO GROWTH AFTER 1 DAY Anaerobic Blood Culture - Preliminary NO GROWTH AFTER 1 DAY 12/30/20 04:05 Aerobic Blood Culture - Preliminary Blood - Venous - Iv Start NO GROWTH AFTER 1 DAY Anaerobic Blood Culture - Preliminary NO GROWTH AFTER 1 DAY Sepsis Event Note - Evaluation Sepsis Screening Result: Sepsis Risk - Focused Exam Vital Signs: Vital Signs Temp Pulse Resp BP Pulse Ox 12/31/20 07:40 85 L 12/31/20 07:16 89 L 12/31/20 07:01 85 18 109/55 L 90 L 12/31/20 04:00 94 F L 81 18 97/57 L 91 L 12/31/20 02:10 95 12/31/20 00:03 95.6 F L 85 18 103/64 93 L - Problem List (1) Infected decubitus ulcer SNOMED Code(s): 580594623 ICD Code: L89.90 - PRESSURE ULCER OF UNSPECIFIED SITE, UNSPECIFIED STAGE; L08.9 - LOCAL INFECTION OF THE SKIN AND SUBCUTANEOUS TISSUE, UNSP Status: Acute Priority: High Current Visit: Yes Qualifiers: Pressure injury stage: unspecified pressure injury stage Qualified Code(s): L89.90 - Pressure ulcer of unspecified site, unspecified stage; L08.9 - Local i nfection of the skin and subcutaneous tissue, unspecified Problem List Initiated/Reviewed/Updated: Yes Orders Last 24hrs: Assessment: Dicubitus Ulcer Left Buttock Plan: Continue dressing changes as directed before admission to the hospital No further treatment needed at this time. Check all Bariatric Follow Up Labs today Thank you for this consult. Kimberlyn Wiggins 12/31/2020 Assessment/Plan Comment:: ASSESSMENT AND PLAN COPD exacerbation with bilateral pneumonia-history of recent hospitalization in [place] for pneumonia -Admit to [address] [place] [address] for further monitoring -IV Fluids for rehydration NS at 125 ml/hr -IV Antibiotic; Meropenem, vancomycin, and levofloxacin, secondary to recent hospitalization and IV antibiotic therapy -oxygen to keep sats greater than 95% -IV Solumedrol 62.5 mg every 8 hours -schedule Duo nebs every 6 hours, Albuterol nebs every 4 hours prn -Advise to notify nurses of any chest pain or other symptoms -blood cultures x2 pending Hypokalemia -Oral and IV potassium replacement -Potassium recheck at 7 PM Hypomagnesium -Oral and IV magnesium replacement -Magnesium recheck in a.m. Decubitus ulcer-chronic, receives wound care in [place] -Obtain wound care notes for review -Consult Dr. Lundy for surgical opinion Chronic pain -continue outpatient medication plan Tobacco dependence -Nicotine patch 14 mg daily -encouraged to quit smoking Maintenance issues -Nutrition: regular diet -Paul catheter -not indicated at this time -DVT - Lovenox 40 mg subcut daily -PPI; IV Protonix 40mg daily CODE STATUS: FULL Admission status: Admit to [address] [place] [address] Admission justification. This patient will be admitted for inpatient services and is medically appropriate meeting medical necessity for inpatient admission as outlined in my documentation. I reasonably expect the patient will require inpatient services that span. Time over 2 midnights. I reasonably expect this patient to be discharged or transferred within 96 hours after admission to the critical access hospital. Disposition: home with Family Primary care provider: Daphney Lundy NP, [facility] Hospitalist: Dr. Thayer - Mortality Measure Prognosis:: Good
[2020-12-31] MEDS: Levofloxacin/Dextrose 5%-Water 750 MG in Premix Bag 1 BAG IV SCH (10:21)
--- NOTE | 2020-12-31 12:02 | CR ---
CHEST: 2 view CLINICAL HISTORY:SOB, COPD, leukocytosis COMPARISON:05/03/2010 FINDINGS: There is a diffuse right lung infiltrate predominating in the upper lobe. There is patchy infiltrate in the left lower lobe. Heart and pulmonary vascularity are normal. There are no effusions Impression: Bilateral pneumonic infiltrates, right greater than left.
--- NOTE | 2020-12-31 12:05 | PCM.PN ---
- General Info Date of Service: 12/31/20 Subjective Update: There were no acute events overnight. He feels a little bit better today. Still feels weak and short of breath. Has a dry and mostly nonproductive cough. Still requiring supplemental oxygen but slightly less today. Appetite has been okay. Strength seems to be okay as he can make it to the bathroom and back. Did not sleep well last night so has been sleepy today. No fevers. Potassium level slightly low again today. Functional Status: Reports: Pain Controlled, Tolerating Diet - Review of Systems General: Reports: Weakness Pulmonary: Reports: Shortness of Breath, Cough - Patient Data Vitals - Most Recent: Last Vital Signs Temp 35.2 C L 12/31/20 10:38 Pulse 68 12/31/20 10:38 Resp 18 12/31/20 07:01 BP 88/54 L 12/31/20 10:38 Pulse Ox 85 L 12/31/20 07:40 Weight - Most Recent: 82.554 kg I&O - Last 24 Hours: Intake & Output 12/30/20 12/31/20 12/31/20 22:59 06:59 14:59 Intake Total 1852 240 Balance 1852 240 Lab Results Last 24 Hours: Laboratory Results - last 24 hr 12/30/20 12/30/20 12/30/20 Range/Units 12:54 19:04 19:05 WBC (4.5-11.0) K/uL RBC (4.30-5.90) M/uL Hgb (12.0-15.0) g/dL Hct (40.0-54.0) % MCV (80-98) fL MCH (27-31) pg MCHC (32-36) % Plt Count (150-400) K/uL Neut % (Auto) (36-66) % Lymph % (Auto) (24-44) % Brewster % (Auto) (2-6) % Eos % (Auto) (2-4) % Baso % (Auto) (0-1) % Sodium 134 L 140 (140-148) mmol/L Potassium 2.8 L* 3.8 (3.6-5.2) mmol/L Chloride 95 L 101 (100-108) mmol/L Carbon Dioxide 31 27 (21-32) mmol/L Anion Gap 10.8 12.0 (5.0-14.0) mmol/L BUN 13 13 (7-18) mg/dL Creatinine 0.7 L 0.8 (0.8-1.3) mg/dL Est Cr Clr Drug Dosing 115.36 100.94 mL/min Estimated GFR (MDRD) > 60 > 60 (>60) Glucose 153 H 205 H (74-106) mg/dL Lactic Acid 4.2 H (0.4-2.0) mmol/L Calcium 7.1 L 6.9 L* (8.5-10.1) mg/dL Magnesium 2.2 (1.8-2.4) mg/dL Ferritin (8-388) ng/ml Total Bilirubin (0.2-1.0) mg/dL AST (15-37) U/L ALT (12-78) U/L Alkaline Phosphatase (46-116) U/L Total Protein (6.4-8.2) g/dL Albumin (3.4-5.0) g/dL Globulin (2.3-3.5) g/dL Albumin/Globulin Ratio (1.2-2.2) Vitamin B12 (193-986) pg/ml Vitamin D 25-Hydroxy (30-100) ng/mL Folate (8.6-58.9) ng/ml 12/31/20 12/31/20 12/31/20 Range/Units 05:40 05:40 05:40 WBC 25.4 H (4.5-11.0) K/uL RBC 3.72 L (4.30-5.90) M/uL Hgb 11.5 L (12.0-15.0) g/dL Hct 33.1 L (40.0-54.0) % MCV 89 (80-98) fL MCH 31 (27-31) pg MCHC 35 (32-36) % Plt Count 283 (150-400) K/uL Neut % (Auto) 94 H (36-66) % Lymph % (Auto) 4 L (24-44) % Brewster % (Auto) 1 L (2-6) % Eos % (Auto) 0 L (2-4) % Baso % (Auto) 0 (0-1) % Sodium 138 L (140-148) mmol/L Potassium 3.4 L (3.6-5.2) mmol/L Chloride 100 (100-108) mmol/L Carbon Dioxide 30 (21-32) mmol/L Anion Gap 11.4 (5.0-14.0) mmol/L BUN 12 (7-18) mg/dL Creatinine 0.7 L (0.8-1.3) mg/dL Est Cr Clr Drug Dosing 115.36 mL/min Estimated GFR (MDRD) > 60 (>60) Glucose 127 H (74-106) mg/dL Lactic Acid 2.3 H (0.4-2.0) mmol/L Calcium 7.3 L (8.5-10.1) mg/dL Magnesium 2.0 (1.8-2.4) mg/dL Ferritin (8-388) ng/ml Total Bilirubin 0.4 (0.2-1.0) mg/dL AST 30 (15-37) U/L ALT 40 (12-78) U/L Alkaline Phosphatase 176 H (46-116) U/L Total Protein 3.6 L (6.4-8.2) g/dL Albumin 1.2 L (3.4-5.0) g/dL Globulin 2.4 (2.3-3.5) g/dL Albumin/Globulin Ratio 0.5 L (1.2-2.2) Vitamin B12 (193-986) pg/ml Vitamin D 25-Hydroxy (30-100) ng/mL Folate (8.6-58.9) ng/ml 12/31/20 12/31/20 Range/Units 07:42 07:42 WBC (4.5-11.0) K/uL RBC (4.30-5.90) M/uL Hgb (12.0-15.0) g/dL Hct (40.0-54.0) % MCV (80-98) fL MCH (27-31) pg MCHC (32-36) % Plt Count (150-400) K/uL Neut % (Auto) (36-66) % Lymph % (Auto) (24-44) % Brewster % (Auto) (2-6) % Eos % (Auto) (2-4) % Baso % (Auto) (0-1) % Sodium (140-148) mmol/L Potassium (3.6-5.2) mmol/L Chloride (100-108) mmol/L Carbon Dioxide (21-32) mmol/L Anion Gap (5.0-14.0) mmol/L BUN (7-18) mg/dL Creatinine (0.8-1.3) mg/dL Est Cr Clr Drug Dosing mL/min Estimated GFR (MDRD) (>60) Glucose (74-106) mg/dL Lactic Acid (0.4-2.0) mmol/L Calcium (8.5-10.1) mg/dL Magnesium (1.8-2.4) mg/dL Ferritin 281 (8-388) ng/ml Total Bilirubin (0.2-1.0) mg/dL AST (15-37) U/L ALT (12-78) U/L Alkaline Phosphatase (46-116) U/L Total Protein (6.4-8.2) g/dL Albumin (3.4-5.0) g/dL Globulin (2.3-3.5) g/dL Albumin/Globulin Ratio (1.2-2.2) Vitamin B12 753 (193-986) pg/ml Vitamin D 25-Hydroxy 8.9 L (30-100) ng/mL Folate 5.6 L (8.6-58.9) ng/ml Nicholas Results Last 24 Hours: Microbiology 12/30/20 04:00 Aerobic Blood Culture - Preliminary Blood - Arm, Right NO GROWTH AFTER 1 DAY Anaerobic Blood Culture - Preliminary NO GROWTH AFTER 1 DAY 12/30/20 04:05 Aerobic Blood Culture - Preliminary Blood - Venous - Iv Start NO GROWTH AFTER 1 DAY Anaerobic Blood Culture - Preliminary NO GROWTH AFTER 1 DAY Med Orders - Current: Current Medications Acetaminophen (Acetaminophen 325 Mg Tab) 650 mg PO Q4H PRN PRN Reason: Pain (Mild 1-3)/fever Albuterol/Ipratropium (Albuterol/Ipratropium 3.0-0.5 Mg/3 Ml Neb Soln) 3 ml NEB QIDRT [facility] Last Admin: 12/31/20 10:48 Dose: 3 ml Documented by: Amitriptyline HCl (Amitriptyline 10 Mg Tab) 10 mg PO BEDTIME [facility] Last Admin: 12/30/20 20:02 Dose: 10 mg Documented by: Bisacodyl (Bisacodyl 5 Mg Tab) 5 mg PO DAILY PRN PRN Reason: Constipation Docusate Sodium (Docusate Sodium 100 Mg Cap) 100 mg PO BID PRN PRN Reason: Constipation Enoxaparin Sodium (Enoxaparin 40 Mg/0.4 Ml Syringe) 40 mg SUBCUT DAILY [facility] Last Admin: 12/31/20 08:56 Dose: 40 mg Documented by: Gabapentin (Gabapentin 300 Mg Cap) 900 mg PO TID [facility] Last Admin: 12/31/20 08:56 Dose: 900 mg Documented by: Meropenem 1 gm/ Sodium (Chloride) 100 mls @ 200 mls/hr IV Q8H [facility] Last Admin: 12/31/20 08:57 Dose: 200 mls/hr Documented by: Levofloxacin/Dextrose 750 mg/ (Premix) 150 mls @ 100 mls/hr IV Q24H [facility] Last Admin: 12/31/20 10:21 Dose: 100 mls/hr Documented by: Vancomycin HCl 1.5 gm/ Sodium (Chloride) 250 mls @ 167 mls/hr IV Q12H [facility] Last Admin: 12/30/20 22:28 Dose: 167 mls/hr Documented by: Lorazepam (Lorazepam 2 Mg/Ml Sdv) 1 mg IV Q6H PRN PRN Reason: Anxiety Methylprednisolone Sodium Succinate (Methylprednisolone Sodium Succinate 125 Mg/2 Ml Sdv) 62.5 mg IV Q6H [facility] Last Admin: 12/31/20 05:22 Dose: 62.5 mg Documented by: Metoprolol Tartrate (Metoprolol Tartrate 25 Mg Tab) 12.5 mg PO DAILY [facility] Last Admin: 12/31/20 08:47 Dose: 12.5 mg Documented by: Morphine Sulfate (Morphine 2 Mg/Ml Syringe) 2 mg IVPUSH Q2H PRN PRN Reason: Pain (severe 7-10) Multivitamins/Minerals (Multivitamins With Iron/Calcium/Folic Acid/Minerals Tab) 1 tab PO DAILY [facility] Last Admin: 12/31/20 08:45 Dose: 1 tab Documented by: Nitroglycerin (Nitroglycerin 0.4 Mg Tab.Sl) 0.4 mg SL ASDIRECTED PRN PRN Reason: Chest Pain Ondansetron HCl (Ondansetron 4 Mg Tab.Dis) 4 mg PO Q6H PRN PRN Reason: Nausea able to take PO Ondansetron HCl (Ondansetron 4 Mg/2 Ml Sdv) 4 mg IV Q4H PRN PRN Reason: Nausea/Vomiting Oxycodone/Acetaminophen (Acetaminophen/Oxycodone 325-10 Mg Tab) 1 tab PO Q6H PRN PRN Reason: Pain Last Admin: 12/31/20 00:07 Dose: 1 tab Documented by: Pantoprazole Sodium (Pantoprazole 40 Mg Tab.Cr) 40 mg PO ACBREAKFAST [facility] Last Admin: 12/31/20 08:55 Dose: 40 mg Documented by: Potassium Chloride (Potassium Chloride 20 Meq Tab.Er) 40 meq PO ONETIME ONE Stop: 12/31/20 12:03 Trazodone HCl (Trazodone 50 Mg Tab) 50 mg PO BEDTIME [facility] Last Admin: 12/30/20 20:02 Dose: 50 mg Documented by: Discontinued Medications Albuterol (Albuterol 0.083% 2.5 Mg/3 Ml Neb Soln) 2.5 mg NEB ONETIME ONE Stop: 12/30/20 02:34 Last Admin: 12/30/20 02:48 Dose: 2.5 mg Documented by: Albuterol/Ipratropium (Albuterol/Ipratropium 3.0-0.5 Mg/3 Ml Neb Soln) 3 ml NEB QID [facility] Last Admin: 12/30/20 10:52 Dose: 3 ml Documented by: Potassium Chloride/Sodium Chloride (Normal Saline With 20 Meq Kcl) 1,000 mls @ 125 mls/hr IV ASDIRECTED [facility] Last Admin: 12/30/20 04:27 Dose: 125 mls/hr Documented by: Magnesium Sulfate (Magnesium Sulfate In Water 2 Gm/50 Ml) 2 gm in 50 mls @ 12.5 mls/hr IV ONETIME ONE Stop: 12/30/20 07:29 Last Admin: 12/30/20 04:27 Dose: 12.5 mls/hr Documented by: Sodium Chloride (Normal Saline) 1,000 mls @ 125 mls/hr IV ASDIRECTED [facility] Potassium Chloride/Sodium Chloride (Normal Saline With 20 Meq Kcl) 1,000 mls @ 125 mls/hr IV ASDIRECTED [facility] Vancomycin HCl 2 gm/ Sodium (Chloride) 500 mls @ 250 mls/hr IV ONETIME ONE Stop: 12/30/20 11:59 Last Admin: 12/30/20 10:26 Dose: 250 mls/hr Documented by: Potassium Chloride 20 meq/Lidocaine HCl 2 ml/ Sodium Chloride 112 mls @ 56 mls/hr IV Q2H [facility] Stop: 12/30/20 14:59 Last Admin: 12/30/20 16:34 Dose: 56 mls/hr Documented by: Calcium Gluconate 2 gm/ Sodium (Chloride) 120 mls @ 100 mls/hr IV ONETIME ONE Stop: 12/30/20 21:29 Last Admin: 12/30/20 20:43 Dose: 100 mls/hr Documented by: Magnesium Oxide (Magnesium Oxide 400 Mg Tab) 400 mg PO ONETIME ONE Stop: 12/30/20 03:32 Last Admin: 12/30/20 04:20 Dose: 400 mg Documented by: Methylprednisolone Sodium Succinate (Methylprednisolone Sodium Succinate 125 Mg/2 Ml Sdv) 125 mg IV ONETIME ONE Stop: 12/30/20 06:08 Last Admin: 12/30/20 07:41 Dose: 125 mg Documented by: Potassium Chloride (Potassium Chloride 20 Meq Tab.Er) 20 meq PO ONETIME ONE Stop: 12/30/20 03:16 Last Admin: 12/30/20 03:31 Dose: 20 meq Documented by: Potassium Chloride (Potassium Chloride 20 Meq Tab.Er) 40 meq PO ONETIME ONE Stop: 12/30/20 04:20 Last Admin: 12/30/20 04:29 Dose: 40 meq Documented by: Potassium Chloride (Potassium Chloride 20 Meq Tab.Er) 40 meq PO ONETIME ONE Stop: 12/30/20 11:01 Last Admin: 12/30/20 11:51 Dose: 40 meq Documented by: Potassium Chloride (Potassium Chloride 20 Meq Tab.Er) 40 meq PO ONETIME ONE Stop: 12/30/20 15:34 Last Admin: 12/30/20 16:34 Dose: 40 meq Documented by: Vancomycin HCl (Vancomycin 1 Gm Sdv) 1 gm IV .PHARMACY TO DOSE [facility] Stop: 12/30/20 09:01 - Exam Quality Assessment: Supplemental Oxygen General: Alert, Oriented, Cooperative, No Acute Distress Lungs: Normal Respiratory Effort, Rhonchi (mild diffuse ), Wheezing (mild end exp on the left ) Cardiovascular: Regular Rate, Regular Rhythm GI/Abdominal Exam: Soft, No Distention Extremities: Pedal Edema (trace bilateral ankle edema ). No: Increased Warmth Skin: Warm, Dry Psy/Mental Status: Alert, Normal Affect - Patient Data Lab Results Last 24 hrs: Laboratory Results - last 24 hr 12/30/20 12/30/20 12/30/20 Range/Units 12:54 19:04 19:05 WBC (4.5-11.0) K/uL RBC (4.30-5.90) M/uL Hgb (12.0-15.0) g/dL Hct (40.0-54.0) % MCV (80-98) fL MCH (27-31) pg MCHC (32-36) % Plt Count (150-400) K/uL Neut % (Auto) (36-66) % Lymph % (Auto) (24-44) % Brewster % (Auto) (2-6) % Eos % (Auto) (2-4) % Baso % (Auto) (0-1) % Sodium 134 L 140 (140-148) mmol/L Potassium 2.8 L* 3.8 (3.6-5.2) mmol/L Chloride 95 L 101 (100-108) mmol/L Carbon Dioxide 31 27 (21-32) mmol/L Anion Gap 10.8 12.0 (5.0-14.0) mmol/L BUN 13 13 (7-18) mg/dL Creatinine 0.7 L 0.8 (0.8-1.3) mg/dL Est Cr Clr Drug Dosing 115.36 100.94 mL/min Estimated GFR (MDRD) > 60 > 60 (>60) Glucose 153 H 205 H (74-106) mg/dL Lactic Acid 4.2 H (0.4-2.0) mmol/L Calcium 7.1 L 6.9 L* (8.5-10.1) mg/dL Magnesium 2.2 (1.8-2.4) mg/dL Ferritin (8-388) ng/ml Total Bilirubin (0.2-1.0) mg/dL AST (15-37) U/L ALT (12-78) U/L Alkaline Phosphatase (46-116) U/L Total Protein (6.4-8.2) g/dL Albumin (3.4-5.0) g/dL Globulin (2.3-3.5) g/dL Albumin/Globulin Ratio (1.2-2.2) Vitamin B12 (193-986) pg/ml Vitamin D 25-Hydroxy (30-100) ng/mL Folate (8.6-58.9) ng/ml 12/31/20 12/31/20 12/31/20 Range/Units 05:40 05:40 05:40 WBC 25.4 H (4.5-11.0) K/uL RBC 3.72 L (4.30-5.90) M/uL Hgb 11.5 L (12.0-15.0) g/dL Hct 33.1 L (40.0-54.0) % MCV 89 (80-98) fL MCH 31 (27-31) pg MCHC 35 (32-36) % Plt Count 283 (150-400) K/uL Neut % (Auto) 94 H (36-66) % Lymph % (Auto) 4 L (24-44) % Brewster % (Auto) 1 L (2-6) % Eos % (Auto) 0 L (2-4) % Baso % (Auto) 0 (0-1) % Sodium 138 L (140-148) mmol/L Potassium 3.4 L (3.6-5.2) mmol/L Chloride 100 (100-108) mmol/L Carbon Dioxide 30 (21-32) mmol/L Anion Gap 11.4 (5.0-14.0) mmol/L BUN 12 (7-18) mg/dL Creatinine 0.7 L (0.8-1.3) mg/dL Est Cr Clr Drug Dosing 115.36 mL/min Estimated GFR (MDRD) > 60 (>60) Glucose 127 H (74-106) mg/dL Lactic Acid 2.3 H (0.4-2.0) mmol/L Calcium 7.3 L (8.5-10.1) mg/dL Magnesium 2.0 (1.8-2.4) mg/dL Ferritin (8-388) ng/ml Total Bilirubin 0.4 (0.2-1.0) mg/dL AST 30 (15-37) U/L ALT 40 (12-78) U/L Alkaline Phosphatase 176 H (46-116) U/L Total Protein 3.6 L (6.4-8.2) g/dL Albumin 1.2 L (3.4-5.0) g/dL Globulin 2.4 (2.3-3.5) g/dL Albumin/Globulin Ratio 0.5 L (1.2-2.2) Vitamin B12 (193-986) pg/ml Vitamin D 25-Hydroxy (30-100) ng/mL Folate (8.6-58.9) ng/ml 12/31/20 12/31/20 Range/Units 07:42 07:42 WBC (4.5-11.0) K/uL RBC (4.30-5.90) M/uL Hgb (12.0-15.0) g/dL Hct (40.0-54.0) % MCV (80-98) fL MCH (27-31) pg MCHC (32-36) % Plt Count (150-400) K/uL Neut % (Auto) (36-66) % Lymph % (Auto) (24-44) % Brewster % (Auto) (2-6) % Eos % (Auto) (2-4) % Baso % (Auto) (0-1) % Sodium (140-148) mmol/L Potassium (3.6-5.2) mmol/L Chloride (100-108) mmol/L Carbon Dioxide (21-32) mmol/L Anion Gap (5.0-14.0) mmol/L BUN (7-18) mg/dL Creatinine (0.8-1.3) mg/dL Est Cr Clr Drug Dosing mL/min Estimated GFR (MDRD) (>60) Glucose (74-106) mg/dL Lactic Acid (0.4-2.0) mmol/L Calcium (8.5-10.1) mg/dL Magnesium (1.8-2.4) mg/dL Ferritin 281 (8-388) ng/ml Total Bilirubin (0.2-1.0) mg/dL AST (15-37) U/L ALT (12-78) U/L Alkaline Phosphatase (46-116) U/L Total Protein (6.4-8.2) g/dL Albumin (3.4-5.0) g/dL Globulin (2.3-3.5) g/dL Albumin/Globulin Ratio (1.2-2.2) Vitamin B12 753 (193-986) pg/ml Vitamin D 25-Hydroxy 8.9 L (30-100) ng/mL Folate 5.6 L (8.6-58.9) ng/ml Result Diagrams: 12/31/20 05:40 12/31/20 05:40 Nicholas Results Last 24 hrs: Microbiology 12/30/20 04:00 Aerobic Blood Culture - Preliminary Blood - Arm, Right NO GROWTH AFTER 1 DAY Anaerobic Blood Culture - Preliminary NO GROWTH AFTER 1 DAY 12/30/20 04:05 Aerobic Blood Culture - Preliminary Blood - Venous - Iv Start NO GROWTH AFTER 1 DAY Anaerobic Blood Culture - Preliminary NO GROWTH AFTER 1 DAY Sepsis Event Note - Evaluation Sepsis Screening Result: Sepsis Risk - Focused Exam Vital Signs: Vital Signs Temp Pulse Pulse Resp BP BP BP 12/31/20 10:38 35.2 C L 68 87/52 L 88/54 L 12/31/20 08:47 99 99/56 L 12/31/20 07:40 12/31/20 07:16 12/31/20 07:01 85 18 109/55 L 12/31/20 04:00 34.4 C L 81 18 97/57 L 12/31/20 02:10 Pulse Ox 12/31/20 10:38 12/31/20 08:47 12/31/20 07:40 85 L 12/31/20 07:16 89 L 12/31/20 07:01 90 L 12/31/20 04:00 91 L 12/31/20 02:10 95 - Problem List Review Problem List Initiated/Reviewed/Updated: Yes - My Orders Last 24 Hours: My Active Orders 12/31/20 11:33 RT Acapella [RESPCARE] Routine 12/31/20 11:48 Convert IV to Saline Lock [OM.PC] Routine 12/31/20 12:02 Discontinue Telemetry Monitoring [Cardiac Monitoring Discontinue] [RC] Click to Edit Potassium Chloride [Klor-Con M20] 40 meq PO ONETIME ONE 01/01/21 05:00 BASIC METABOLIC PANEL,BMP [CHEM] Timed CBC W/O DIFF,HEMOGRAM [HEME] Timed (1) - Plan Plan:: ASSESSMENT AND PLAN COPD exacerbation with bilateral pneumonia-still requiring 3.5 L of supplemental oxygen but is clinically a little bit better. No fevers. Volume status appears appropriate today. Tolerating current antibiotics. Still wheezing some. -Saline lock IV -Continue current antibiotics with meropenem, vancomycin, and levofloxacin -Supplement oxygen to keep sats greater than 90% -IV Solumedrol 62.5 mg every 8 hours, possible transition to prednisone tomorrow -schedule Duo nebs every 6 hours, Albuterol nebs every 4 hours prn -Follow-up cultures Hypokalemia-slowly improving with supplementation but still on the low side. -Oral potassium replacement this morning -Recheck in the morning Hypomagnesium-improved with supplementation. Decubitus ulcer-chronic, receives wound care in [place]. New wound care orders received per Dr. Lundy's consultation. -Wound care per Dr. Lundy Chronic pain-stable. -continue outpatient medication plan Tobacco dependence -Nicotine patch 14 mg daily -encourage cessation Maintenance issues -Nutrition: regular diet -DVT - Lovenox 40 mg subcut daily -GI- PPI Disposition: home with Family and home care Primary care provider: Daphney Lundy NP, [facility] Kamari Diaz MD
[2020-12-31] MEDS ORDERED: Potassium Chloride 20 MEQ Tab.ER PO ONE (13:00)
[2020-12-31] MEDS ORDERED: MVI, Adult with Vitamin K 10 ML, Zinc/Copper/Manganese/Selenium 1 ML in Lactated Ringer... IV ONE ×3 (16:00)
[2020-12-31] MEDS: Cyanocobalamin (Vitamin B12) 1,000 MCG/ML SDV IM SCH (16:36)
[2020-12-31] MEDS: Cholecalciferol (Vitamin D3) 50,000 Unit Cap PO SCH (16:37)
[2020-12-31] MEDS: Folic Acid 1 MG Tab PO SCH (16:38)
[2020-12-31] MEDS: traZODone 50 MG Tab PO SCH (20:44)
[2020-12-31] MEDS: Multivitamins with Iron Tab.Chew CHEW SCH (20:44)
[2020-12-31] MEDS: Amitriptyline 10 MG Tab PO SCH (20:44)
[2021-01-01] MEDS: methylPREDNISolone Sodium Succinate 125 MG/2 ML SDV IV SCH ×3 (00:26→14:31)
[2021-01-01] MEDS: Meropenem 1 GM in Sodium Chloride 0.9% 100 ML IV SCH ×4 (00:30→23:00)
[2021-01-01] MEDS: Acetaminophen/oxyCODONE 325-10 MG Tab PO PRN ×4 (02:41→21:36)
[2021-01-01] MEDS: Pantoprazole 40 MG Tab.CR PO SCH (07:20)
[2021-01-01] MEDS: Albuterol/Ipratropium 3.0-0.5 MG/3 ML Neb Soln NEB SCH ×4 (07:30→21:23)
[2021-01-01] MEDS: Levofloxacin/Dextrose 5%-Water 750 MG in Premix Bag 1 BAG IV SCH (07:55)
[2021-01-01] MEDS: Folic Acid 1 MG Tab PO SCH (08:05)
[2021-01-01] MEDS: Cholecalciferol (Vitamin D3) 50,000 Unit Cap PO SCH (08:05)
[2021-01-01] MEDS: Gabapentin 300 MG Cap PO SCH ×3 (08:06→21:25)
[2021-01-01] MEDS: Enoxaparin 40 MG/0.4 ML Syringe SUBCUT SCH (08:06)
[2021-01-01] MEDS: Multivitamins with Iron/Calcium/Folic Acid/Minerals Tab PO SCH (08:06)
[2021-01-01] MEDS: Metoprolol Tartrate 25 MG Tab PO SCH (08:07)
[2021-01-01] MEDS: Multivitamins with Iron Tab.Chew CHEW SCH ×2 (08:08→21:25)
--- NOTE | 2021-01-01 08:22 | PN ---
DATE OF SERVICE: 01/01/2021 SUBJECTIVE: Tho has been having his decubitus ulcer packed twice a day. Vitamin levels returned yesterday. B12 was 753, vitamin D 8.9, and folate 5.6. The rest of his labs are pending. He reports no pain in decubiti area. His pneumonia has been treated by hospitalist. OBJECTIVE: GENERAL: Tho Easton is a pleasant 55-year-old male. VITAL SIGNS: Height 5 feet 8 inches, weight is 182 pounds. TPR 96.4, 72, 20. Blood pressure 102/58. HEENT: Negative. NECK: Supple. HEART: Regular rate and rhythm. LUNGS: Clear. GENITOURINARY: Decubitus ulcer, dressing dry and intact. EXTREMITIES: Negative. 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 PLAN: 1. LR with MultiVites including thiamine 1 L to run 100 mL per hour. 2. Add B complex 1 p.o. daily. 3. We will evaluate p.r.n. or in a.m. Kimberlyn Youssef PA-C /[id number]
[2021-01-01] MEDS ORDERED: Potassium Chloride 20 MEQ Tab.ER PO ONE ×2 (09:00→12:30)
[2021-01-01] MEDS: Cyanocobalamin (Vitamin B12) 1,000 MCG/ML SDV IM SCH (09:33)
[2021-01-01] MEDS: Vitamin B Complex Tab PO SCH (09:34)
[2021-01-01] MEDS ORDERED: MVI, Adult with Vitamin K 10 ML, Thiamine 200 MG, Zinc/Copper/Manganese/Selenium 1 ML i... IV ONE ×4 (10:00)
--- NOTE | 2021-01-01 12:24 | PCM.PN ---
- General Info Date of Service: 01/01/21 Subjective Update: No acute events overnight. Shortness of breath is a little better again today. No fevers overnight. Still requiring supplemental oxygen but he is down to 3 L at this time. Strength is okay. Appetite is okay. Tolerating dressing changes. Potassium level at the lower limits of normal. Functional Status: Reports: Pain Controlled, Tolerating Diet - Review of Systems General: Denies: Fever Pulmonary: Reports: Shortness of Breath - Patient Data Vitals - Most Recent: Last Vital Signs Temp 35.8 C L 01/01/21 10:43 Pulse 72 01/01/21 10:50 Resp 18 01/01/21 10:43 BP 90/45 L 01/01/21 10:59 Pulse Ox 88 L 01/01/21 10:43 Weight - Most Recent: 82.554 kg I&O - Last 24 Hours: Intake & Output 12/31/20 01/01/21 01/01/21 22:59 06:59 14:59 Intake Total 1068 1421 1795 Balance 1068 1421 1795 Lab Results Last 24 Hours: Laboratory Results - last 24 hr 01/01/21 01/01/21 Range/Units 04:10 04:10 WBC 29.5 H (4.5-11.0) K/uL RBC 3.37 L (4.30-5.90) M/uL Hgb 10.6 L (12.0-15.0) g/dL Hct 31.3 L (40.0-54.0) % MCV 93 (80-98) fL MCH 32 H (27-31) pg MCHC 34 (32-36) % Plt Count 271 (150-400) K/uL Sodium 138 L (140-148) mmol/L Potassium 3.6 (3.6-5.2) mmol/L Chloride 103 (100-108) mmol/L Carbon Dioxide 26 (21-32) mmol/L Anion Gap 12.6 (5.0-14.0) mmol/L BUN 13 (7-18) mg/dL Creatinine 0.8 (0.8-1.3) mg/dL Est Cr Clr Drug Dosing 100.94 mL/min Estimated GFR (MDRD) > 60 (>60) Glucose 181 H (74-106) mg/dL Calcium 7.0 L (8.5-10.1) mg/dL Nicholas Results Last 24 Hours: Microbiology 12/30/20 04:00 Aerobic Blood Culture - Preliminary Blood - Arm, Right NO GROWTH AFTER 2 DAYS Anaerobic Blood Culture - Preliminary NO GROWTH AFTER 2 DAYS 12/30/20 04:05 Aerobic Blood Culture - Preliminary Blood - Venous - Iv Start NO GROWTH AFTER 2 DAYS Anaerobic Blood Culture - Preliminary NO GROWTH AFTER 2 DAYS Med Orders - Current: Current Medications Acetaminophen (Acetaminophen 325 Mg Tab) 650 mg PO Q4H PRN PRN Reason: Pain (Mild 1-3)/fever Albuterol/Ipratropium (Albuterol/Ipratropium 3.0-0.5 Mg/3 Ml Neb Soln) 3 ml NEB QIDRT [facility] Last Admin: 01/01/21 10:50 Dose: 3 ml Documented by: Amitriptyline HCl (Amitriptyline 10 Mg Tab) 10 mg PO BEDTIME [facility] Last Admin: 12/31/20 20:44 Dose: 10 mg Documented by: Bisacodyl (Bisacodyl 5 Mg Tab) 5 mg PO DAILY PRN PRN Reason: Constipation Cholecalciferol (Cholecalciferol (Vitamin D3) 50,000 Unit Cap) 50,000 unit PO DAILY [facility] Stop: 01/02/21 09:01 Last Admin: 01/01/21 08:05 Dose: 50,000 unit Documented by: Cyanocobalamin (Cyanocobalamin (Vitamin B12) 1,000 Mcg/Ml Sdv) 1,000 mcg IM DAILY [facility] Stop: 01/02/21 23:59 Last Admin: 01/01/21 09:33 Dose: 1,000 mcg Documented by: Docusate Sodium (Docusate Sodium 100 Mg Cap) 100 mg PO BID PRN PRN Reason: Constipation Enoxaparin Sodium (Enoxaparin 40 Mg/0.4 Ml Syringe) 40 mg SUBCUT DAILY [facility] Last Admin: 01/01/21 08:06 Dose: 40 mg Documented by: Folic Acid (Folic Acid 1 Mg Tab) 1 mg PO DAILY [facility] Last Admin: 01/01/21 08:05 Dose: 1 mg Documented by: Gabapentin (Gabapentin 300 Mg Cap) 900 mg PO TID [facility] Last Admin: 01/01/21 08:06 Dose: 900 mg Documented by: Meropenem 1 gm/ Sodium (Chloride) 100 mls @ 200 mls/hr IV Q8H [facility] Last Admin: 01/01/21 07:17 Dose: 200 mls/hr Documented by: Levofloxacin/Dextrose 750 mg/ (Premix) 150 mls @ 100 mls/hr IV Q24H [facility] Last Admin: 01/01/21 07:55 Dose: 100 mls/hr Documented by: Vancomycin HCl 1.5 gm/ Sodium (Chloride) 250 mls @ 167 mls/hr IV Q12H [facility] Last Admin: 01/01/21 10:26 Dose: 167 mls/hr Documented by: Multivitamins/Minerals 10 ml/Thiamine HCl 200 mg/ Zinc 1 ml / Lactated Ringer's 1,013 mls @ 100 mls/hr IV ONETIME ONE Stop: 01/01/21 20:07 Last Admin: 01/01/21 10:22 Dose: 100 mls/hr Documented by: Lorazepam (Lorazepam 2 Mg/Ml Sdv) 1 mg IV Q6H PRN PRN Reason: Anxiety Methylprednisolone Sodium Succinate (Methylprednisolone Sodium Succinate 125 Mg/2 Ml Sdv) 62.5 mg IV Q6H [facility] Last Admin: 01/01/21 05:17 Dose: 62.5 mg Documented by: Metoprolol Tartrate (Metoprolol Tartrate 25 Mg Tab) 12.5 mg PO DAILY [facility] Last Admin: 01/01/21 08:07 Dose: 12.5 mg Documented by: Morphine Sulfate (Morphine 2 Mg/Ml Syringe) 2 mg IVPUSH Q2H PRN PRN Reason: Pain (severe 7-10) Multivitamins/Iron (Multivitamins With Iron Tab.Chew) 1 tab CHEW BID [facility] Last Admin: 01/01/21 08:08 Dose: 1 tab Documented by: Nitroglycerin (Nitroglycerin 0.4 Mg Tab.Sl) 0.4 mg SL ASDIRECTED PRN PRN Reason: Chest Pain Ondansetron HCl (Ondansetron 4 Mg Tab.Dis) 4 mg PO Q6H PRN PRN Reason: Nausea able to take PO Ondansetron HCl (Ondansetron 4 Mg/2 Ml Sdv) 4 mg IV Q4H PRN PRN Reason: Nausea/Vomiting Oxycodone/Acetaminophen (Acetaminophen/Oxycodone 325-10 Mg Tab) 1 tab PO Q6H PRN PRN Reason: Pain Last Admin: 01/01/21 09:36 Dose: 1 tab Documented by: Pantoprazole Sodium (Pantoprazole 40 Mg Tab.Cr) 40 mg PO ACBREAKFAST [facility] Last Admin: 01/01/21 07:20 Dose: 40 mg Documented by: Trazodone HCl (Trazodone 50 Mg Tab) 50 mg PO BEDTIME [facility] Last Admin: 12/31/20 20:44 Dose: 50 mg Documented by: Vitamin B Complex (Vitamin B Complex Tab) 1 each PO DAILY [facility] Last Admin: 01/01/21 09:34 Dose: 1 each Documented by: Discontinued Medications Albuterol (Albuterol 0.083% 2.5 Mg/3 Ml Neb Soln) 2.5 mg NEB ONETIME ONE Stop: 12/30/20 02:34 Last Admin: 12/30/20 02:48 Dose: 2.5 mg Documented by: Albuterol/Ipratropium (Albuterol/Ipratropium 3.0-0.5 Mg/3 Ml Neb Soln) 3 ml NEB QID [facility] Last Admin: 12/30/20 10:52 Dose: 3 ml Documented by: Potassium Chloride/Sodium Chloride (Normal Saline With 20 Meq Kcl) 1,000 mls @ 125 mls/hr IV ASDIRECTED [facility] Last Admin: 12/30/20 04:27 Dose: 125 mls/hr Documented by: Magnesium Sulfate (Magnesium Sulfate In Water 2 Gm/50 Ml) 2 gm in 50 mls @ 12.5 mls/hr IV ONETIME ONE Stop: 12/30/20 07:29 Last Admin: 12/30/20 04:27 Dose: 12.5 mls/hr Documented by: Sodium Chloride (Normal Saline) 1,000 mls @ 125 mls/hr IV ASDIRECTED EDUARDA Potassium Chloride/Sodium Chloride (Normal Saline With 20 Meq Kcl) 1,000 mls @ 125 mls/hr IV ASDIRECTED [facility] Vancomycin HCl 2 gm/ Sodium (Chloride) 500 mls @ 250 mls/hr IV ONETIME ONE Stop: 12/30/20 11:59 Last Admin: 12/30/20 10:26 Dose: 250 mls/hr Documented by: Potassium Chloride 20 meq/Lidocaine HCl 2 ml/ Sodium Chloride 112 mls @ 56 mls/hr IV Q2H [facility] Stop: 12/30/20 14:59 Last Admin: 12/30/20 16:34 Dose: 56 mls/hr Documented by: Calcium Gluconate 2 gm/ Sodium (Chloride) 120 mls @ 100 mls/hr IV ONETIME ONE Stop: 12/30/20 21:29 Last Admin: 12/30/20 20:43 Dose: 100 mls/hr Documented by: Multivitamins/Minerals 10 ml/ (Zinc 1 ml/ Lactated Ringer's) 1,011 mls @ 100 mls/hr IV ONETIME ONE Stop: 01/01/21 02:06 Last Admin: 12/31/20 16:34 Dose: 100 mls/hr Documented by: Magnesium Oxide (Magnesium Oxide 400 Mg Tab) 400 mg PO ONETIME ONE Stop: 12/30/20 03:32 Last Admin: 12/30/20 04:20 Dose: 400 mg Documented by: Methylprednisolone Sodium Succinate (Methylprednisolone Sodium Succinate 125 Mg/2 Ml Sdv) 125 mg IV ONETIME ONE Stop: 12/30/20 06:08 Last Admin: 12/30/20 07:41 Dose: 125 mg Documented by: Multivitamins/Minerals (Multivitamins With Iron/Calcium/Folic Acid/Minerals Tab) 1 tab PO DAILY EDUARDA Last Admin: 01/01/21 08:06 Dose: 1 tab Documented by: Potassium Chloride (Potassium Chloride 20 Meq Tab.Er) 20 meq PO ONETIME ONE Stop: 12/30/20 03:16 Last Admin: 12/30/20 03:31 Dose: 20 meq Documented by: Potassium Chloride (Potassium Chloride 20 Meq Tab.Er) 40 meq PO ONETIME ONE Stop: 12/30/20 04:20 Last Admin: 12/30/20 04:29 Dose: 40 meq Documented by: Potassium Chloride (Potassium Chloride 20 Meq Tab.Er) 40 meq PO ONETIME ONE Stop: 12/30/20 11:01 Last Admin: 12/30/20 11:51 Dose: 40 meq Documented by: Potassium Chloride (Potassium Chloride 20 Meq Tab.Er) 40 meq PO ONETIME ONE Stop: 12/30/20 15:34 Last Admin: 12/30/20 16:34 Dose: 40 meq Documented by: Potassium Chloride (Potassium Chloride 20 Meq Tab.Er) 40 meq PO ONETIME ONE Stop: 12/31/20 13:01 Last Admin: 12/31/20 14:59 Dose: 40 meq Documented by: Potassium Chloride (Potassium Chloride 20 Meq Tab.Er) 40 meq PO ONETIME ONE Stop: 01/01/21 09:01 Last Admin: 01/01/21 08:13 Dose: 40 meq Documented by: Vancomycin HCl (Vancomycin 1 Gm Sdv) 1 gm IV .PHARMACY TO DOSE EDUARDA Stop: 12/30/20 09:01 - Exam Quality Assessment: Supplemental Oxygen General: Alert, Oriented, Cooperative, No Acute Distress Lungs: Normal Respiratory Effort, Rhonchi (moderate diffuse). No: Wheezing Cardiovascular: Regular Rate, Regular Rhythm GI/Abdominal Exam: Soft, No Distention Extremities: No Pedal Edema. No: Increased Warmth Skin: Warm, Dry Psy/Mental Status: Alert, Normal Affect - Patient Data Lab Results Last 24 hrs: Laboratory Results - last 24 hr 01/01/21 01/01/21 Range/Units 04:10 04:10 WBC 29.5 H (4.5-11.0) K/uL RBC 3.37 L (4.30-5.90) M/uL Hgb 10.6 L (12.0-15.0) g/dL Hct 31.3 L (40.0-54.0) % MCV 93 (80-98) fL MCH 32 H (27-31) pg MCHC 34 (32-36) % Plt Count 271 (150-400) K/uL Sodium 138 L (140-148) mmol/L Potassium 3.6 (3.6-5.2) mmol/L Chloride 103 (100-108) mmol/L Carbon Dioxide 26 (21-32) mmol/L Anion Gap 12.6 (5.0-14.0) mmol/L BUN 13 (7-18) mg/dL Creatinine 0.8 (0.8-1.3) mg/dL Est Cr Clr Drug Dosing 100.94 mL/min Estimated GFR (MDRD) > 60 (>60) Glucose 181 H (74-106) mg/dL Calcium 7.0 L (8.5-10.1) mg/dL Result Diagrams: 01/01/21 04:10 01/01/21 04:10 Nicholas Results Last 24 hrs: Microbiology 12/30/20 04:00 Aerobic Blood Culture - Preliminary Blood - Arm, Right NO GROWTH AFTER 2 DAYS Anaerobic Blood Culture - Preliminary NO GROWTH AFTER 2 DAYS 12/30/20 04:05 Aerobic Blood Culture - Preliminary Blood - Venous - Iv Start NO GROWTH AFTER 2 DAYS Anaerobic Blood Culture - Preliminary NO GROWTH AFTER 2 DAYS Sepsis Event Note - Evaluation Sepsis Screening Result: No Definite Risk - Focused Exam Vital Signs: Vital Signs Temp Temp Pulse Pulse Resp BP BP 01/01/21 10:59 90/45 L 01/01/21 10:50 72 01/01/21 10:43 35.8 C L 72 18 87/44 L 01/01/21 08:07 86 102/58 L 01/01/21 07:21 35.8 C L 20 102/58 L 01/01/21 07:00 35.6 C L 66 18 89/49 L 01/01/21 05:07 01/01/21 03:00 36.6 C 91 16 96/55 L Pulse Ox Pulse Ox 01/01/21 10:59 01/01/21 10:50 01/01/21 10:43 88 L 01/01/21 08:07 01/01/21 07:21 88 L 01/01/21 07:00 87 L 01/01/21 05:07 90 L 01/01/21 03:00 90 L - Problem List Review Problem List Initiated/Reviewed/Updated: Yes - My Orders Last 24 Hours: My Active Orders 12/31/20 11:33 RT Acapella [RESPCARE] Routine 12/31/20 11:48 Convert IV to Saline Lock [OM.PC] Routine 01/01/21 11:44 Wound Care [RC] DAILY 01/01/21 12:22 Potassium Chloride [Klor-Con M20] 40 meq PO ONETIME ONE 01/01/21 12:23 predniSONE 20 mg PO ONETIME ONE 01/02/21 05:00 BASIC METABOLIC PANEL,BMP [CHEM] Timed CBC W/O DIFF,HEMOGRAM [HEME] Timed (1) 01/02/21 08:00 predniSONE 40 mg PO WITHBREAKFAST - Plan Plan:: ASSESSMENT AND PLAN COPD exacerbation with bilateral pneumonia-down to 3 L of supplemental oxygen and is clinically a little bit better again today. No fevers. Volume status appears appropriate today. Tolerating current antibiotics. Wheezing has resolved but he still has coarse rhonchi. -Saline lock IV -Continue current antibiotics with meropenem and levofloxacin -Discontinue vancomycin -Supplement oxygen to keep sats greater than 90% -Transition to prednisone -schedule Duo nebs every 6 hours, Albuterol nebs every 4 hours prn -Follow-up cultures Hypokalemia-slowly improving with supplementation but still on the low side of normal. -Oral potassium replacement this morning -Recheck in the morning Hypomagnesium-improved with supplementation. Decubitus ulcer-chronic, receives wound care in [place]. -Wound care per home care orders/[place] wound care Chronic pain-stable. -continue outpatient medication plan Tobacco dependence -Nicotine patch 14 mg daily -encourage cessation Maintenance issues -Nutrition: regular diet -DVT - Lovenox 40 mg subcut daily -GI- PPI Disposition: home with Family and home care. Hopefully he will be ready for discharge in a day or 2 Primary care provider: Daphney Lundy NP, [facility] Kamari Diaz MD
[2021-01-01] MEDS ORDERED: predniSONE 20 MG Tab PO ONE (12:30)
[2021-01-01] MEDS: Amitriptyline 10 MG Tab PO SCH (21:25)
[2021-01-01] MEDS: traZODone 50 MG Tab PO SCH (21:25)
[2021-01-02] MEDS: Acetaminophen/oxyCODONE 325-10 MG Tab PO PRN ×3 (04:19→16:59)
[2021-01-02] MEDS: Albuterol/Ipratropium 3.0-0.5 MG/3 ML Neb Soln NEB SCH ×4 (07:11→21:22)
[2021-01-02] MEDS: Pantoprazole 40 MG Tab.CR PO SCH (07:42)
[2021-01-02] MEDS: Meropenem 1 GM in Sodium Chloride 0.9% 100 ML IV SCH (07:43)
[2021-01-02] MEDS: predniSONE 20 MG Tab PO SCH (07:49)
[2021-01-02] MEDS: Levofloxacin/Dextrose 5%-Water 750 MG in Premix Bag 1 BAG IV SCH (08:30)
[2021-01-02] MEDS: Gabapentin 300 MG Cap PO SCH ×3 (08:33→21:24)
[2021-01-02] MEDS: Vitamin B Complex Tab PO SCH (08:33)
[2021-01-02] MEDS: Cholecalciferol (Vitamin D3) 50,000 Unit Cap PO SCH (08:33)
[2021-01-02] MEDS: Multivitamins with Iron Tab.Chew CHEW SCH ×2 (08:33→21:24)
[2021-01-02] MEDS: Enoxaparin 40 MG/0.4 ML Syringe SUBCUT SCH (08:34)
[2021-01-02] MEDS: Folic Acid 1 MG Tab PO SCH (08:34)
[2021-01-02] MEDS: Cyanocobalamin (Vitamin B12) 1,000 MCG/ML SDV IM SCH (08:34)
--- NOTE | 2021-01-02 10:29 | PN ---
DATE OF SERVICE: 01/02/2021 SUBJECTIVE: Tho's vital signs have been stable. He has been getting his dressing changes twice a day on his decubitus ulcer. Oral intake 2495. Urine output unknown. REVIEW OF SYSTEMS: Remainder of review of systems negative for any pertinent positives and negatives. OBJECTIVE: GENERAL: hTo Easton is a 55-year-old male. VITAL SIGNS: TPR is 96.6, 64, 18, blood pressure 95/49. No exam today. He stated he wanted to sleep and to get out. PLAN: When discharged to follow up with Kimberlyn Youssef PA-C, for Carlos-en-Y gastric bypass followup. To go home on vitamin D 5000 International Units. Still waiting for his vitamin A, thiamine, copper, and zinc results to come back. We will evaluate harinder Youssef PA-C /[id number]
[2021-01-02] MEDS: Metoprolol Tartrate 25 MG Tab PO SCH (10:41)
--- NOTE | 2021-01-02 12:32 | PCM.PN ---
- General Info Date of Service: 01/02/21 Subjective Update: There were no acute events overnight. He feels slightly better today but still short of breath and coughing. He reports significant sputum that feels like it is in the upper airways. He has not had any fevers. Strength is doing okay. No significant pain in his decubitus ulcer. Appetite has been okay. Functional Status: Reports: Pain Controlled, Tolerating Diet - Review of Systems Pulmonary: Reports: Shortness of Breath, Cough - Patient Data Vitals - Most Recent: Last Vital Signs Temp 36.0 C L 01/02/21 10:42 Pulse 84 01/02/21 10:56 Resp 16 01/02/21 10:42 BP 98/56 L 01/02/21 10:42 Pulse Ox 90 L 01/02/21 10:42 Weight - Most Recent: 82.554 kg I&O - Last 24 Hours: Intake & Output 01/01/21 01/02/21 01/02/21 22:59 06:59 14:59 Intake Total 1754 100 700 Balance 1754 100 700 Lab Results Last 24 Hours: Laboratory Results - last 24 hr 01/02/21 01/02/21 Range/Units 05:00 05:00 WBC 15.3 H (4.5-11.0) K/uL RBC 3.21 L (4.30-5.90) M/uL Hgb 9.9 L (12.0-15.0) g/dL Hct 30.2 L (40.0-54.0) % MCV 94 (80-98) fL MCH 31 (27-31) pg MCHC 33 (32-36) % Plt Count 249 (150-400) K/uL Sodium 139 L (140-148) mmol/L Potassium 4.5 (3.6-5.2) mmol/L Chloride 108 (100-108) mmol/L Carbon Dioxide 29 (21-32) mmol/L Anion Gap 6.5 (5.0-14.0) mmol/L BUN 11 (7-18) mg/dL Creatinine 0.7 L (0.8-1.3) mg/dL Est Cr Clr Drug Dosing 115.36 mL/min Estimated GFR (MDRD) > 60 (>60) Glucose 84 (74-106) mg/dL Calcium 7.4 L (8.5-10.1) mg/dL Nicholas Results Last 24 Hours: Microbiology 12/30/20 04:05 Aerobic Blood Culture - Preliminary Blood - Venous - Iv Start NO GROWTH AFTER 3 DAYS Anaerobic Blood Culture - Preliminary NO GROWTH AFTER 3 DAYS 12/30/20 04:00 Aerobic Blood Culture - Preliminary Blood - Arm, Right NO GROWTH AFTER 3 DAYS Anaerobic Blood Culture - Preliminary NO GROWTH AFTER 3 DAYS Med Orders - Current: Current Medications Acetaminophen (Acetaminophen 325 Mg Tab) 650 mg PO Q4H PRN PRN Reason: Pain (Mild 1-3)/fever Albuterol/Ipratropium (Albuterol/Ipratropium 3.0-0.5 Mg/3 Ml Neb Soln) 3 ml NEB QIDRT [facility] Last Admin: 01/02/21 10:53 Dose: 3 ml Documented by: Amitriptyline HCl (Amitriptyline 10 Mg Tab) 10 mg PO BEDTIME [facility] Last Admin: 01/01/21 21:25 Dose: 10 mg Documented by: Bisacodyl (Bisacodyl 5 Mg Tab) 5 mg PO DAILY PRN PRN Reason: Constipation Cyanocobalamin (Cyanocobalamin (Vitamin B12) 1,000 Mcg/Ml Sdv) 1,000 mcg IM DAILY [facility] Stop: 01/02/21 23:59 Last Admin: 01/02/21 08:34 Dose: 1,000 mcg Documented by: Docusate Sodium (Docusate Sodium 100 Mg Cap) 100 mg PO BID PRN PRN Reason: Constipation Enoxaparin Sodium (Enoxaparin 40 Mg/0.4 Ml Syringe) 40 mg SUBCUT DAILY [facility] Last Admin: 01/02/21 08:34 Dose: 40 mg Documented by: Folic Acid (Folic Acid 1 Mg Tab) 1 mg PO DAILY [facility] Last Admin: 01/02/21 08:34 Dose: 1 mg Documented by: Furosemide (Furosemide 40 Mg/4 Ml Vial) 40 mg IVPUSH ONETIME ONE Stop: 01/02/21 12:30 Furosemide (Furosemide 40 Mg/4 Ml Vial) 40 mg IVPUSH DAILY [facility] Gabapentin (Gabapentin 300 Mg Cap) 900 mg PO TID [facility] Last Admin: 01/02/21 08:33 Dose: 900 mg Documented by: Guaifenesin (Guaifenesin 600 Mg Tab.Er) 600 mg PO TID [facility] Meropenem 1 gm/ Sodium (Chloride) 100 mls @ 200 mls/hr IV Q8H [facility] Last Admin: 01/02/21 07:43 Dose: 200 mls/hr Documented by: Levofloxacin/Dextrose 750 mg/ (Premix) 150 mls @ 100 mls/hr IV Q24H [facility] Last Admin: 01/02/21 08:30 Dose: 100 mls/hr Documented by: Metoprolol Tartrate (Metoprolol Tartrate 25 Mg Tab) 12.5 mg PO DAILY [facility] Last Admin: 01/02/21 10:41 Dose: 12.5 mg Documented by: Morphine Sulfate (Morphine 2 Mg/Ml Syringe) 2 mg IVPUSH Q2H PRN PRN Reason: Pain (severe 7-10) Multivitamins/Iron (Multivitamins With Iron Tab.Chew) 1 tab CHEW BID [facility] Last Admin: 01/02/21 08:33 Dose: 1 tab Documented by: Nitroglycerin (Nitroglycerin 0.4 Mg Tab.Sl) 0.4 mg SL ASDIRECTED PRN PRN Reason: Chest Pain Ondansetron HCl (Ondansetron 4 Mg Tab.Dis) 4 mg PO Q6H PRN PRN Reason: Nausea able to take PO Ondansetron HCl (Ondansetron 4 Mg/2 Ml Sdv) 4 mg IV Q4H PRN PRN Reason: Nausea/Vomiting Oxycodone/Acetaminophen (Acetaminophen/Oxycodone 325-10 Mg Tab) 1 tab PO Q6H PRN PRN Reason: Pain Last Admin: 01/02/21 10:41 Dose: 1 tab Documented by: Pantoprazole Sodium (Pantoprazole 40 Mg Tab.Cr) 40 mg PO ACBREAKFAST [facility] Last Admin: 01/02/21 07:42 Dose: 40 mg Documented by: Prednisone (Prednisone 20 Mg Tab) 40 mg PO WITHBREAKFAST [facility] Last Admin: 01/02/21 07:49 Dose: 40 mg Documented by: Trazodone HCl (Trazodone 50 Mg Tab) 50 mg PO BEDTIME [facility] Last Admin: 01/01/21 21:25 Dose: 50 mg Documented by: Vitamin B Complex (Vitamin B Complex Tab) 1 each PO DAILY [facility] Last Admin: 01/02/21 08:33 Dose: 1 each Documented by: Discontinued Medications Albuterol (Albuterol 0.083% 2.5 Mg/3 Ml Neb Soln) 2.5 mg NEB ONETIME ONE Stop: 12/30/20 02:34 Last Admin: 12/30/20 02:48 Dose: 2.5 mg Documented by: Albuterol/Ipratropium (Albuterol/Ipratropium 3.0-0.5 Mg/3 Ml Neb Soln) 3 ml NEB QID [facility] Last Admin: 12/30/20 10:52 Dose: 3 ml Documented by: Cholecalciferol (Cholecalciferol (Vitamin D3) 50,000 Unit Cap) 50,000 unit PO DAILY [facility] Stop: 01/02/21 09:01 Last Admin: 01/02/21 08:33 Dose: 50,000 unit Documented by: Potassium Chloride/Sodium Chloride (Normal Saline With 20 Meq Kcl) 1,000 mls @ 125 mls/hr IV ASDIRECTED [facility] Last Admin: 12/30/20 04:27 Dose: 125 mls/hr Documented by: Magnesium Sulfate (Magnesium Sulfate In Water 2 Gm/50 Ml) 2 gm in 50 mls @ 12.5 mls/hr IV ONETIME ONE Stop: 12/30/20 07:29 Last Admin: 12/30/20 04:27 Dose: 12.5 mls/hr Documented by: Sodium Chloride (Normal Saline) 1,000 mls @ 125 mls/hr IV ASDIRECTED [facility] Potassium Chloride/Sodium Chloride (Normal Saline With 20 Meq Kcl) 1,000 mls @ 125 mls/hr IV ASDIRECTED [facility] Vancomycin HCl 2 gm/ Sodium (Chloride) 500 mls @ 250 mls/hr IV ONETIME ONE Stop: 12/30/20 11:59 Last Admin: 12/30/20 10:26 Dose: 250 mls/hr Documented by: Vancomycin HCl 1.5 gm/ Sodium (Chloride) 250 mls @ 167 mls/hr IV Q12H [facility] Last Admin: 01/01/21 10:26 Dose: 167 mls/hr Documented by: Potassium Chloride 20 meq/Lidocaine HCl 2 ml/ Sodium Chloride 112 mls @ 56 mls/hr IV Q2H [facility] Stop: 12/30/20 14:59 Last Admin: 12/30/20 16:34 Dose: 56 mls/hr Documented by: Calcium Gluconate 2 gm/ Sodium (Chloride) 120 mls @ 100 mls/hr IV ONETIME ONE Stop: 12/30/20 21:29 Last Admin: 12/30/20 20:43 Dose: 100 mls/hr Documented by: Multivitamins/Minerals 10 ml/ (Zinc 1 ml/ Lactated Ringer's) 1,011 mls @ 100 mls/hr IV ONETIME ONE Stop: 01/01/21 02:06 Last Admin: 12/31/20 16:34 Dose: 100 mls/hr Documented by: Multivitamins/Minerals 10 ml/Thiamine HCl 200 mg/ Zinc 1 ml / Lactated Ringer's 1,013 mls @ 100 mls/hr IV ONETIME ONE Stop: 01/01/21 20:07 Last Admin: 01/01/21 10:22 Dose: 100 mls/hr Documented by: Lorazepam (Lorazepam 2 Mg/Ml Sdv) 1 mg IV Q6H PRN PRN Reason: Anxiety Magnesium Oxide (Magnesium Oxide 400 Mg Tab) 400 mg PO ONETIME ONE Stop: 12/30/20 03:32 Last Admin: 12/30/20 04:20 Dose: 400 mg Documented by: Methylprednisolone Sodium Succinate (Methylprednisolone Sodium Succinate 125 Mg/2 Ml Sdv) 62.5 mg IV Q6H [facility] Last Admin: 01/01/21 14:31 Dose: Not Given Documented by: Methylprednisolone Sodium Succinate (Methylprednisolone Sodium Succinate 125 Mg/2 Ml Sdv) 125 mg IV ONETIME ONE Stop: 12/30/20 06:08 Last Admin: 12/30/20 07:41 Dose: 125 mg Documented by: Multivitamins/Minerals (Multivitamins With Iron/Calcium/Folic Acid/Minerals Tab) 1 tab PO DAILY [facility] Last Admin: 01/01/21 08:06 Dose: 1 tab Documented by: Potassium Chloride (Potassium Chloride 20 Meq Tab.Er) 20 meq PO ONETIME ONE Stop: 12/30/20 03:16 Last Admin: 12/30/20 03:31 Dose: 20 meq Documented by: Potassium Chloride (Potassium Chloride 20 Meq Tab.Er) 40 meq PO ONETIME ONE Stop: 12/30/20 04:20 Last Admin: 12/30/20 04:29 Dose: 40 meq Documented by: Potassium Chloride (Potassium Chloride 20 Meq Tab.Er) 40 meq PO ONETIME ONE Stop: 12/30/20 11:01 Last Admin: 12/30/20 11:51 Dose: 40 meq Documented by: Potassium Chloride (Potassium Chloride 20 Meq Tab.Er) 40 meq PO ONETIME ONE Stop: 12/30/20 15:34 Last Admin: 12/30/20 16:34 Dose: 40 meq Documented by: Potassium Chloride (Potassium Chloride 20 Meq Tab.Er) 40 meq PO ONETIME ONE Stop: 12/31/20 13:01 Last Admin: 12/31/20 14:59 Dose: 40 meq Documented by: Potassium Chloride (Potassium Chloride 20 Meq Tab.Er) 40 meq PO ONETIME ONE Stop: 01/01/21 09:01 Last Admin: 01/01/21 08:13 Dose: 40 meq Documented by: Potassium Chloride (Potassium Chloride 20 Meq Tab.Er) 40 meq PO ONETIME ONE Stop: 01/01/21 12:31 Last Admin: 01/01/21 12:57 Dose: 40 meq Documented by: Prednisone (Prednisone 20 Mg Tab) 20 mg PO ONETIME ONE Stop: 01/01/21 12:31 Last Admin: 01/01/21 12:57 Dose: 20 mg Documented by: Vancomycin HCl (Vancomycin 1 Gm Sdv) 1 gm IV .PHARMACY TO DOSE EDUARDA Stop: 12/30/20 09:01 - Exam Quality Assessment: Supplemental Oxygen General: Alert, Oriented, Cooperative, No Acute Distress Lungs: Normal Respiratory Effort, Rhonchi (diffuse) Cardiovascular: Regular Rate, Regular Rhythm GI/Abdominal Exam: Soft, No Distention Extremities: Pedal Edema. No: Increased Warmth Skin: Warm, Dry Psy/Mental Status: Alert, Normal Affect - Patient Data Lab Results Last 24 hrs: Laboratory Results - last 24 hr 01/02/21 01/02/21 Range/Units 05:00 05:00 WBC 15.3 H (4.5-11.0) K/uL RBC 3.21 L (4.30-5.90) M/uL Hgb 9.9 L (12.0-15.0) g/dL Hct 30.2 L (40.0-54.0) % MCV 94 (80-98) fL MCH 31 (27-31) pg MCHC 33 (32-36) % Plt Count 249 (150-400) K/uL Sodium 139 L (140-148) mmol/L Potassium 4.5 (3.6-5.2) mmol/L Chloride 108 (100-108) mmol/L Carbon Dioxide 29 (21-32) mmol/L Anion Gap 6.5 (5.0-14.0) mmol/L BUN 11 (7-18) mg/dL Creatinine 0.7 L (0.8-1.3) mg/dL Est Cr Clr Drug Dosing 115.36 mL/min Estimated GFR (MDRD) > 60 (>60) Glucose 84 (74-106) mg/dL Calcium 7.4 L (8.5-10.1) mg/dL Result Diagrams: 01/02/21 05:00 01/02/21 05:00 Nicholas Results Last 24 hrs: Microbiology 12/30/20 04:05 Aerobic Blood Culture - Preliminary Blood - Venous - Iv Start NO GROWTH AFTER 3 DAYS Anaerobic Blood Culture - Preliminary NO GROWTH AFTER 3 DAYS 12/30/20 04:00 Aerobic Blood Culture - Preliminary Blood - Arm, Right NO GROWTH AFTER 3 DAYS Anaerobic Blood Culture - Preliminary NO GROWTH AFTER 3 DAYS Sepsis Event Note - Evaluation Sepsis Screening Result: No Definite Risk - Focused Exam Vital Signs: Vital Signs Temp Pulse Pulse Resp BP BP Pulse Ox 01/02/21 10:56 84 01/02/21 10:42 36.0 C L 84 16 98/56 L 90 L 01/02/21 10:41 86 99/52 L 01/02/21 10:00 01/02/21 07:11 68 01/02/21 06:52 35.9 C L 64 18 95/49 L 94 L 01/02/21 04:00 35.9 C L 80 18 93/47 L 88 L Pulse Ox 01/02/21 10:56 01/02/21 10:42 01/02/21 10:41 01/02/21 10:00 89 L 01/02/21 07:11 01/02/21 06:52 01/02/21 04:00 - Problem List Review Problem List Initiated/Reviewed/Updated: Yes - My Orders Last 24 Hours: My Active Orders 01/02/21 08:00 predniSONE 40 mg PO WITHBREAKFAST 01/02/21 09:00 Wound Care [RC] ASDIRECTED 01/02/21 12:29 Furosemide [Lasix] 40 mg IVPUSH ONETIME ONE 01/02/21 14:00 guaiFENesin [Mucinex] 600 mg PO TID 01/03/21 05:00 BASIC METABOLIC PANEL,BMP [CHEM] Timed CBC W/O DIFF,HEMOGRAM [HEME] Timed (1) 01/03/21 09:00 Furosemide [Lasix] 40 mg IVPUSH DAILY - Plan Plan:: ASSESSMENT AND PLAN COPD exacerbation with bilateral pneumonia-respiratory status stable but not dramatically improved. No fevers. Volume status appears slightly hypervolemic today. Tolerating current antibiotics. Still has coarse rhonchi. -Saline lock IV -Mucinex 3 times a day -Dose of furosemide this afternoon and again in the morning -Continue current antibiotics with discontinue -meropenem levofloxacin -Supplement oxygen to keep sats greater than 90% -Continue prednisone -schedule Duo nebs every 6 hours, Albuterol nebs every 4 hours prn -Follow-up cultures Hypokalemia-improved with supplementation. -Recheck in the morning Decubitus ulcer-chronic, receives wound care in [place]. -Wound care per home care orders/[place] wound care Chronic pain-stable. -continue outpatient medication plan Tobacco dependence -Nicotine patch 14 mg daily -encourage cessation Maintenance issues -Nutrition: regular diet -DVT - Lovenox 40 mg subcut daily -GI- PPI Disposition: home with Family and home care. Hopefully he will be ready for discharge in a day or 2 Primary care provider: Daphney Lundy NP, [facility] Kamari Diaz MD
[2021-01-02] MEDS ORDERED: Furosemide 40 MG/4 ML VIAL IVPUSH ONE (12:45)
[2021-01-02] MEDS: guaiFENesin 600 MG Tab.ER PO SCH ×2 (13:23→21:24)
[2021-01-02] MEDS: traZODone 50 MG Tab PO SCH (21:24)
[2021-01-02] MEDS: Amitriptyline 10 MG Tab PO SCH (21:24)
[2021-01-03] MEDS: Acetaminophen/oxyCODONE 325-10 MG Tab PO PRN ×4 (02:33→21:55)
[2021-01-03] MEDS: Albuterol/Ipratropium 3.0-0.5 MG/3 ML Neb Soln NEB SCH ×4 (07:18→21:51)
[2021-01-03] MEDS: predniSONE 20 MG Tab PO SCH (07:27)
[2021-01-03] MEDS: Pantoprazole 40 MG Tab.CR PO SCH (07:27)
[2021-01-03] MEDS: Levofloxacin/Dextrose 5%-Water 750 MG in Premix Bag 1 BAG IV SCH (07:29)
[2021-01-03] MEDS: Enoxaparin 40 MG/0.4 ML Syringe SUBCUT SCH (08:17)
[2021-01-03] MEDS: Metoprolol Tartrate 25 MG Tab PO SCH (08:18)
[2021-01-03] MEDS: guaiFENesin 600 MG Tab.ER PO SCH ×3 (08:18→21:55)
[2021-01-03] MEDS: Multivitamins with Iron Tab.Chew CHEW SCH ×2 (08:18→21:54)
[2021-01-03] MEDS: Vitamin B Complex Tab PO SCH (08:18)
[2021-01-03] MEDS: Furosemide 40 MG/4 ML VIAL IVPUSH SCH (08:19)
[2021-01-03] MEDS: Gabapentin 300 MG Cap PO SCH ×3 (08:19→21:54)
[2021-01-03] MEDS: Folic Acid 1 MG Tab PO SCH (08:19)
[2021-01-03] MEDS: Zinc (Zinc Gluconate) 50 MG Tab PO SCH (09:10)
--- NOTE | 2021-01-03 11:46 | PN ---
DATE OF SERVICE: 01/03/2021 SUBJECTIVE: Tho states he is feeling better today. He is awake and has no questions or concerns. Oral intake 1600. Urine output 300 recorded, with several independent voids. Last bowel movement was 01/02/2021. OBJECTIVE: GENERAL: Tho Easton is a 55-year-old male. He is alert and orientated. VITAL SIGNS: TPR is 96.8, 67, 18. Blood pressure 92/45. HEENT: Negative. HEART: Regular rate and rhythm. ABDOMEN: Soft, nontender. LUNGS: He remains to have a loose cough and rhonchi heard in the upper lungs as well as the bases. He has good air exchange. EXTREMITIES: Negative. LABORATORY DATA: Reviewed today. His zinc is back and it is 21 and normal being 44 to 115. ASSESSMENT: Nonspecific surgical malabsorption, status post Carlos-en-Y gastric bypass surgery, decubitus ulcer, and bilateral pneumonia/chronic obstructive pulmonary disease exasperation. PLAN: 1. Added zinc 50 mg p.o. daily. 2. To evaluate p.r.n. or in a.m. Kimberlyn Youssef PA-C /[id number]
--- NOTE | 2021-01-03 16:29 | PCM.PN ---
- General Info Date of Service: 01/03/21 Admission Dx/Problem (Free Text): Admission Diagnosis/Problem Admission Diagnosis/Problem COPD with acute lower respiratory infection Subjective Update: Patient reports he continues to feel slightly better today. He has continued to require oxygen and was noted to be saturating at only 85% on room air. He does qualify for home oxygen. He reports improvement with Mucinex started yesterday and remains on Levaquin and prednisone as well as DuoNeb's. No change in his known chronic decubitus ulcer. Functional Status: Reports: Pain Controlled - Review of Systems General: Denies: Fever, Night Sweats HEENT: Reports: No Symptoms Pulmonary: Reports: Shortness of Breath Cardiovascular: Denies: Chest Pain, Palpitations Gastrointestinal: Reports: No Symptoms Genitourinary: Reports: No Symptoms Musculoskeletal: Reports: No Symptoms Neurological: Reports: No Symptoms Psychiatric: Reports: No Symptoms - Patient Data Vitals - Most Recent: Last Vital Signs Temp 97.1 F 01/03/21 14:21 Pulse 82 01/03/21 14:31 Resp 18 01/03/21 14:21 BP 106/52 L 01/03/21 14:21 Pulse Ox 92 L 01/03/21 14:21 Weight - Most Recent: 182 lb I&O - Last 24 Hours: Intake & Output 01/03/21 01/03/21 01/03/21 06:59 14:59 22:59 Intake Total 600 Output Total 500 Balance 100 Lab Results Last 24 Hours: Laboratory Results - last 24 hr 12/31/20 01/03/21 01/03/21 Range/Units 07:54 06:00 06:00 WBC 10.1 (4.5-11.0) K/uL RBC 3.16 L (4.30-5.90) M/uL Hgb 9.9 L (12.0-15.0) g/dL Hct 30.1 L (40.0-54.0) % MCV 95 (80-98) fL MCH 31 (27-31) pg MCHC 33 (32-36) % Plt Count 264 (150-400) K/uL Sodium 141 (140-148) mmol/L Potassium 4.0 (3.6-5.2) mmol/L Chloride 108 (100-108) mmol/L Carbon Dioxide 29 (21-32) mmol/L Anion Gap 4.1 L (5.0-14.0) mmol/L BUN 11 (7-18) mg/dL Creatinine 0.5 L (0.8-1.3) mg/dL Est Cr Clr Drug Dosing 161.50 mL/min Estimated GFR (MDRD) > 60 (>60) Glucose 76 (74-106) mg/dL Calcium 7.6 L (8.5-10.1) mg/dL Zinc 21 L (44-115) ug/dL Nicholas Results Last 24 Hours: Microbiology 12/30/20 04:05 Aerobic Blood Culture - Preliminary Blood - Venous - Iv Start NO GROWTH AFTER 4 DAYS Anaerobic Blood Culture - Preliminary NO GROWTH AFTER 4 DAYS 12/30/20 04:00 Aerobic Blood Culture - Preliminary Blood - Arm, Right NO GROWTH AFTER 4 DAYS Anaerobic Blood Culture - Preliminary NO GROWTH AFTER 4 DAYS Med Orders - Current: Current Medications Acetaminophen (Acetaminophen 325 Mg Tab) 650 mg PO Q4H PRN PRN Reason: Pain (Mild 1-3)/fever Albuterol/Ipratropium (Albuterol/Ipratropium 3.0-0.5 Mg/3 Ml Neb Soln) 3 ml NEB QIDRT [facility] Last Admin: 01/03/21 14:31 Dose: 3 ml Documented by: Amitriptyline HCl (Amitriptyline 10 Mg Tab) 10 mg PO BEDTIME [facility] Last Admin: 01/02/21 21:24 Dose: 10 mg Documented by: Bisacodyl (Bisacodyl 5 Mg Tab) 5 mg PO DAILY PRN PRN Reason: Constipation Docusate Sodium (Docusate Sodium 100 Mg Cap) 100 mg PO BID PRN PRN Reason: Constipation Enoxaparin Sodium (Enoxaparin 40 Mg/0.4 Ml Syringe) 40 mg SUBCUT DAILY [facility] Last Admin: 01/03/21 08:17 Dose: 40 mg Documented by: Folic Acid (Folic Acid 1 Mg Tab) 1 mg PO DAILY [facility] Last Admin: 01/03/21 08:19 Dose: 1 mg Documented by: Furosemide (Furosemide 40 Mg/4 Ml Vial) 40 mg IVPUSH DAILY [facility] Last Admin: 01/03/21 08:19 Dose: 40 mg Documented by: Gabapentin (Gabapentin 300 Mg Cap) 900 mg PO TID [facility] Last Admin: 01/03/21 13:29 Dose: 900 mg Documented by: Guaifenesin (Guaifenesin 600 Mg Tab.Er) 600 mg PO TID [facility] Last Admin: 01/03/21 13:29 Dose: 600 mg Documented by: Levofloxacin/Dextrose 750 mg/ (Premix) 150 mls @ 100 mls/hr IV Q24H [facility] Last Admin: 01/03/21 07:29 Dose: 100 mls/hr Documented by: Metoprolol Tartrate (Metoprolol Tartrate 25 Mg Tab) 12.5 mg PO DAILY [facility] Last Admin: 01/03/21 08:18 Dose: 12.5 mg Documented by: Morphine Sulfate (Morphine 2 Mg/Ml Syringe) 2 mg IVPUSH Q2H PRN PRN Reason: Pain (severe 7-10) Multivitamins/Iron (Multivitamins With Iron Tab.Chew) 1 tab CHEW BID [facility] Last Admin: 01/03/21 08:18 Dose: 1 tab Documented by: Nitroglycerin (Nitroglycerin 0.4 Mg Tab.Sl) 0.4 mg SL ASDIRECTED PRN PRN Reason: Chest Pain Ondansetron HCl (Ondansetron 4 Mg Tab.Dis) 4 mg PO Q6H PRN PRN Reason: Nausea able to take PO Ondansetron HCl (Ondansetron 4 Mg/2 Ml Sdv) 4 mg IV Q4H PRN PRN Reason: Nausea/Vomiting Oxycodone/Acetaminophen (Acetaminophen/Oxycodone 325-10 Mg Tab) 1 tab PO Q6H PRN PRN Reason: Pain Last Admin: 01/03/21 15:19 Dose: 1 tab Documented by: Pantoprazole Sodium (Pantoprazole 40 Mg Tab.Cr) 40 mg PO ACBREAKFAST [facility] Last Admin: 01/03/21 07:27 Dose: 40 mg Documented by: Prednisone (Prednisone 20 Mg Tab) 40 mg PO WITHBREAKFAST [facility] Last Admin: 01/03/21 07:27 Dose: 40 mg Documented by: Trazodone HCl (Trazodone 50 Mg Tab) 50 mg PO BEDTIME [facility] Last Admin: 01/02/21 21:24 Dose: 50 mg Documented by: Vitamin B Complex (Vitamin B Complex Tab) 1 each PO DAILY [facility] Last Admin: 01/03/21 08:18 Dose: 1 each Documented by: Zinc Gluconate (Zinc (Zinc Gluconate) 50 Mg Tab) 50 mg PO DAILY [facility] Last Admin: 01/03/21 09:10 Dose: 50 mg Documented by: Discontinued Medications Albuterol (Albuterol 0.083% 2.5 Mg/3 Ml Neb Soln) 2.5 mg NEB ONETIME ONE Stop: 12/30/20 02:34 Last Admin: 12/30/20 02:48 Dose: 2.5 mg Documented by: Albuterol/Ipratropium (Albuterol/Ipratropium 3.0-0.5 Mg/3 Ml Neb Soln) 3 ml NEB QID [facility] Last Admin: 12/30/20 10:52 Dose: 3 ml Documented by: Cholecalciferol (Cholecalciferol (Vitamin D3) 50,000 Unit Cap) 50,000 unit PO DAILY [facility] Stop: 01/02/21 09:01 Last Admin: 01/02/21 08:33 Dose: 50,000 unit Documented by: Cyanocobalamin (Cyanocobalamin (Vitamin B12) 1,000 Mcg/Ml Sdv) 1,000 mcg IM DAILY [facility] Stop: 01/02/21 23:59 Last Admin: 01/02/21 08:34 Dose: 1,000 mcg Documented by: Furosemide (Furosemide 40 Mg/4 Ml Vial) 40 mg IVPUSH ONETIME ONE Stop: 01/02/21 12:46 Last Admin: 01/02/21 13:10 Dose: 40 mg Documented by: Potassium Chloride/Sodium Chloride (Normal Saline With 20 Meq Kcl) 1,000 mls @ 125 mls/hr IV ASDIRECTED [facility] Last Admin: 12/30/20 04:27 Dose: 125 mls/hr Documented by: Magnesium Sulfate (Magnesium Sulfate In Water 2 Gm/50 Ml) 2 gm in 50 mls @ 12.5 mls/hr IV ONETIME ONE Stop: 12/30/20 07:29 Last Admin: 12/30/20 04:27 Dose: 12.5 mls/hr Documented by: Sodium Chloride (Normal Saline) 1,000 mls @ 125 mls/hr IV ASDIRECTED [facility] Potassium Chloride/Sodium Chloride (Normal Saline With 20 Meq Kcl) 1,000 mls @ 125 mls/hr IV ASDIRECTED [facility] Meropenem 1 gm/ Sodium (Chloride) 100 mls @ 200 mls/hr IV Q8H [facility] Last Admin: 01/02/21 07:43 Dose: 200 mls/hr Documented by: Vancomycin HCl 2 gm/ Sodium (Chloride) 500 mls @ 250 mls/hr IV ONETIME ONE Stop: 12/30/20 11:59 Last Admin: 12/30/20 10:26 Dose: 250 mls/hr Documented by: Vancomycin HCl 1.5 gm/ Sodium (Chloride) 250 mls @ 167 mls/hr IV Q12H [facility] Last Admin: 01/01/21 10:26 Dose: 167 mls/hr Documented by: Potassium Chloride 20 meq/Lidocaine HCl 2 ml/ Sodium Chloride 112 mls @ 56 mls/hr IV Q2H [facility] Stop: 12/30/20 14:59 Last Admin: 12/30/20 16:34 Dose: 56 mls/hr Documented by: Calcium Gluconate 2 gm/ Sodium (Chloride) 120 mls @ 100 mls/hr IV ONETIME ONE Stop: 12/30/20 21:29 Last Admin: 12/30/20 20:43 Dose: 100 mls/hr Documented by: Multivitamins/Minerals 10 ml/ (Zinc 1 ml/ Lactated Ringer's) 1,011 mls @ 100 mls/hr IV ONETIME ONE Stop: 01/01/21 02:06 Last Admin: 12/31/20 16:34 Dose: 100 mls/hr Documented by: Multivitamins/Minerals 10 ml/Thiamine HCl 200 mg/ Zinc 1 ml / Lactated Ringer's 1,013 mls @ 100 mls/hr IV ONETIME ONE Stop: 01/01/21 20:07 Last Admin: 01/01/21 10:22 Dose: 100 mls/hr Documented by: Lorazepam (Lorazepam 2 Mg/Ml Sdv) 1 mg IV Q6H PRN PRN Reason: Anxiety Magnesium Oxide (Magnesium Oxide 400 Mg Tab) 400 mg PO ONETIME ONE Stop: 12/30/20 03:32 Last Admin: 12/30/20 04:20 Dose: 400 mg Documented by: Methylprednisolone Sodium Succinate (Methylprednisolone Sodium Succinate 125 Mg/2 Ml Sdv) 62.5 mg IV Q6H [facility] Last Admin: 01/01/21 14:31 Dose: Not Given Documented by: Methylprednisolone Sodium Succinate (Methylprednisolone Sodium Succinate 125 Mg/2 Ml Sdv) 125 mg IV ONETIME ONE Stop: 12/30/20 06:08 Last Admin: 12/30/20 07:41 Dose: 125 mg Documented by: Multivitamins/Minerals (Multivitamins With Iron/Calcium/Folic Acid/Minerals Tab) 1 tab PO DAILY [facility] Last Admin: 01/01/21 08:06 Dose: 1 tab Documented by: Potassium Chloride (Potassium Chloride 20 Meq Tab.Er) 20 meq PO ONETIME ONE Stop: 12/30/20 03:16 Last Admin: 12/30/20 03:31 Dose: 20 meq Documented by: Potassium Chloride (Potassium Chloride 20 Meq Tab.Er) 40 meq PO ONETIME ONE Stop: 12/30/20 04:20 Last Admin: 12/30/20 04:29 Dose: 40 meq Documented by: Potassium Chloride (Potassium Chloride 20 Meq Tab.Er) 40 meq PO ONETIME ONE Stop: 12/30/20 11:01 Last Admin: 12/30/20 11:51 Dose: 40 meq Documented by: Potassium Chloride (Potassium Chloride 20 Meq Tab.Er) 40 meq PO ONETIME ONE Stop: 12/30/20 15:34 Last Admin: 12/30/20 16:34 Dose: 40 meq Documented by: Potassium Chloride (Potassium Chloride 20 Meq Tab.Er) 40 meq PO ONETIME ONE Stop: 12/31/20 13:01 Last Admin: 12/31/20 14:59 Dose: 40 meq Documented by: Potassium Chloride (Potassium Chloride 20 Meq Tab.Er) 40 meq PO ONETIME ONE Stop: 01/01/21 09:01 Last Admin: 01/01/21 08:13 Dose: 40 meq Documented by: Potassium Chloride (Potassium Chloride 20 Meq Tab.Er) 40 meq PO ONETIME ONE Stop: 01/01/21 12:31 Last Admin: 01/01/21 12:57 Dose: 40 meq Documented by: Prednisone (Prednisone 20 Mg Tab) 20 mg PO ONETIME ONE Stop: 01/01/21 12:31 Last Admin: 01/01/21 12:57 Dose: 20 mg Documented by: Vancomycin HCl (Vancomycin 1 Gm Sdv) 1 gm IV .PHARMACY TO DOSE [facility] Stop: 12/30/20 09:01 - Exam Quality Assessment: Supplemental Oxygen General: Alert, Oriented HEENT: No: Scleral Icterus Neck: Supple Lungs: Rhonchi Cardiovascular: Regular Rate, Regular Rhythm GI/Abdominal Exam: Normal Bowel Sounds Extremities: Normal Inspection Neurological: No New Focal Deficit Psy/Mental Status: Alert, Normal Affect, Normal Mood - Patient Data Lab Results Last 24 hrs: Laboratory Results - last 24 hr 12/31/20 01/03/21 01/03/21 Range/Units 07:54 06:00 06:00 WBC 10.1 (4.5-11.0) K/uL RBC 3.16 L (4.30-5.90) M/uL Hgb 9.9 L (12.0-15.0) g/dL Hct 30.1 L (40.0-54.0) % MCV 95 (80-98) fL MCH 31 (27-31) pg MCHC 33 (32-36) % Plt Count 264 (150-400) K/uL Sodium 141 (140-148) mmol/L Potassium 4.0 (3.6-5.2) mmol/L Chloride 108 (100-108) mmol/L Carbon Dioxide 29 (21-32) mmol/L Anion Gap 4.1 L (5.0-14.0) mmol/L BUN 11 (7-18) mg/dL Creatinine 0.5 L (0.8-1.3) mg/dL Est Cr Clr Drug Dosing 161.50 mL/min Estimated GFR (MDRD) > 60 (>60) Glucose 76 (74-106) mg/dL Calcium 7.6 L (8.5-10.1) mg/dL Zinc 21 L (44-115) ug/dL Result Diagrams: 01/03/21 06:00 01/03/21 06:00 Nicholas Results Last 24 hrs: Microbiology 12/30/20 04:05 Aerobic Blood Culture - Preliminary Blood - Venous - Iv Start NO GROWTH AFTER 4 DAYS Anaerobic Blood Culture - Preliminary NO GROWTH AFTER 4 DAYS 12/30/20 04:00 Aerobic Blood Culture - Preliminary Blood - Arm, Right NO GROWTH AFTER 4 DAYS Anaerobic Blood Culture - Preliminary NO GROWTH AFTER 4 DAYS Sepsis Event Note - Evaluation Sepsis Screening Result: No Definite Risk - Focused Exam Vital Signs: Vital Signs Temp Pulse Pulse Resp BP BP Pulse Ox 01/03/21 14:31 82 01/03/21 14:21 97.1 F 88 18 106/52 L 92 L 01/03/21 10:47 96.8 F L 78 18 107/55 L 94 L 01/03/21 10:39 90 01/03/21 08:18 86 96/48 L 01/03/21 07:19 96 01/03/21 06:54 96.8 F L 67 18 92/45 L 94 L - Problem List Review Problem List Initiated/Reviewed/Updated: Yes - Plan Plan:: ASSESSMENT AND PLAN COPD exacerbation with bilateral pneumonia-respiratory status mildly improved but persistent oxygen requirement. No fevers. Tolerating current antibiotics. Still has coarse rhonchi. -Continue Mucinex -Continue levofloxacin -Supplement oxygen to keep sats greater than 90% -Continue prednisone -schedule Duo nebs every 6 hours, Albuterol nebs every 4 hours prn Decubitus ulcer-chronic, receives wound care in [place]. -Wound care per home care orders/[place] wound care Chronic pain-stable. -continue outpatient medication plan Tobacco dependence -Nicotine patch 14 mg daily -encourage cessation Maintenance issues -Nutrition: regular diet -DVT - Lovenox 40 mg subcut daily -GI- PPI Disposition: home with Family and home care. Consider discharge on home oxygen if unable to taper. Hopefully he will be ready for discharge in a day or 2 Primary care provider: Daphney Lundy NP, [facility]
[2021-01-03] MEDS: traZODone 50 MG Tab PO SCH (21:54)
[2021-01-03] MEDS: Amitriptyline 10 MG Tab PO SCH (21:54)
[2021-01-04] MEDS: Albuterol/Ipratropium 3.0-0.5 MG/3 ML Neb Soln NEB SCH ×2 (07:11→10:46)
[2021-01-04] MEDS: Acetaminophen/oxyCODONE 325-10 MG Tab PO PRN (07:23)
[2021-01-04] MEDS: Pantoprazole 40 MG Tab.CR PO SCH (07:24)
[2021-01-04] MEDS: predniSONE 20 MG Tab PO SCH (07:24)
[2021-01-04] MEDS: Levofloxacin/Dextrose 5%-Water 750 MG in Premix Bag 1 BAG IV SCH (07:31)
[2021-01-04] MEDS: Multivitamins with Iron Tab.Chew CHEW SCH (09:09)
[2021-01-04] MEDS: Folic Acid 1 MG Tab PO SCH (09:10)
[2021-01-04] MEDS: Furosemide 40 MG/4 ML VIAL IVPUSH SCH (09:10)
[2021-01-04] MEDS: Metoprolol Tartrate 25 MG Tab PO SCH (09:10)
[2021-01-04] MEDS: guaiFENesin 600 MG Tab.ER PO SCH (09:11)
[2021-01-04] MEDS: Enoxaparin 40 MG/0.4 ML Syringe SUBCUT SCH (09:11)
[2021-01-04] MEDS: Zinc (Zinc Gluconate) 50 MG Tab PO SCH (09:11)
[2021-01-04] MEDS: Gabapentin 300 MG Cap PO SCH (09:11)
[2021-01-04] MEDS: Vitamin B Complex Tab PO SCH (09:11)
--- NOTE | 2021-01-04 11:20 | PCM.DCSUM1 ---
Discharge Summary - Hospital Course HPI Initial Comments: 55-year-old male admitted on 12/30 with bilateral pneumonia in the setting of a COPD exacerbation. - Discharge Data Discharge Date: 01/04/21 Discharge Disposition: Home, Self-Care 01 Condition: Fair - Referral to Home Health Primary Care Physician: Daphney Lundy NP - Patient Summary/Data Consults: Consultations 12/30/20 06:07 Consult to Wound Care Services [CONS] Routine Comment: Physician Instructions: 12/30/20 15:29 Consult to Physician [CONS] Routine Consulting Provider: Larry Lundy Call Completed to Consulting Physician: Yes Reason for Consult: Decubitus ulcer, bariatric follow-up - Patient Instructions Diet: Regular Diet as Tolerated - Discharge Plan *PRESCRIPTION DRUG MONITORING PROGRAM REVIEWED*: Not Applicable *COPY OF PRESCRIPTION DRUG MONITORING REPORT IN PATIENT ZAKIYA: Not Applicable Home Medications: Home Meds Albuterol Sulfate [Albuterol Sulfate HFA] 2 puff INH TID PRN 11/10/13 [History] Formoterol/Mometasone [Dulera 100 MCG/5 MCG] 1 - 2 puff INH BID 11/10/13 [History] Acetaminophen 650 mg PO Q6HR PRN 02/03/18 [History] Albuterol [Proventil Neb Soln] 2.5 mg NEB Q6HR PRN 02/03/18 [History] Aspirin [Adult Low Dose Aspirin EC] 81 mg PO DAILY 02/03/18 [History] Diclofenac Sodium [Voltaren] 50 mg PO BID PRN 02/03/18 [History] Gabapentin [Neurontin] 900 mg PO TID 02/03/18 [History] Metoprolol Tartrate [Lopressor] 12.5 mg PO DAILY 02/03/18 [History] Multivitamin with Minerals [Multiple Vitamin] 1 tab PO DAILY 02/03/18 [History] Nitroglycerin [Nitrostat] 0.4 mg SL ASDIRECTED PRN 02/03/18 [History] Omeprazole 20 mg PO DAILY 02/03/18 [History] Ondansetron [Zofran ODT] 4 mg PO Q8HR PRN 02/03/18 [History] traZODone HCl [Trazodone HCl] 50 mg PO BEDTIME 02/03/18 [History] Amitriptyline [Elavil] 10 mg PO DAILY 12/30/20 [History] oxyCODONE HCl/Acetaminophen [Percocet 10-325 mg Tablet] 1 tab PO ASDIRECTED PRN 12/30/20 [History] Oxygen Therapy Mode: Nasal Cannula Patient Handouts: Chronic Obstructive Pulmonary Disease Exacerbation, [id number], Hypokalemia Forms: ED Department Discharge Referrals: Daphney Lundy I [employer]E [employer]ING VICE PRESIDENT [Primary Care Provider] - 01/08/21 10:30 am (Please arrive 15 minutes early for your appointment.) - Discharge Summary/Plan Comment DC Time >30 min.: Yes (32 minutes) Discharge Summary/Plan Comment: The patient was admitted and placed on systemic steroid therapy along with scheduled and as needed DuoNeb's. He was placed on daily Levaquin. He was followed by surgery due to a known chronic ulceration and was noted to have zinc deficiency, started on an oral zinc supplement. Over the course the patient's hospitalization, his presenting symptoms improved though he continued to require supplemental oxygen. Orders were placed for the patient to continue oxygen therapy at discharge. In addition, the patient received prescriptions for Levaquin to complete his antibiotic course, 5 additional days of prednisone for a steroid burst, and daily zinc supplement to treat his zinc deficiency. On 01/04, the patient was appropriate for discharge home with continuation of home health services. He was discharged in stable condition. - Patient Data Vitals - Most Recent: Last Vital Signs Temp 97.5 F 01/04/21 10:59 Pulse 73 01/04/21 10:59 Resp 16 01/04/21 10:59 BP 98/47 L 01/04/21 10:59 Pulse Ox 94 L 01/04/21 10:59 Weight - Most Recent: 182 lb I&O - Last 24 hours: Intake & Output 01/03/21 01/04/21 01/04/21 22:59 06:59 14:59 Intake Total 240 855 Balance 240 855 Lab Results - Last 24 hrs: Laboratory Results - last 24 hr 12/31/20 Range/Units 07:54 Serum Copper 50 L (69-132) ug/dL JERED Results - Last 24 hrs: Microbiology 12/30/20 04:00 Aerobic Blood Culture - Final Blood - Arm, Right NO GROWTH AFTER 5 DAYS Anaerobic Blood Culture - Final NO GROWTH AFTER 5 DAYS 12/30/20 04:05 Aerobic Blood Culture - Final Blood - Venous - Iv Start NO GROWTH AFTER 5 DAYS Anaerobic Blood Culture - Final NO GROWTH AFTER 5 DAYS Med Orders - Current: Current Medications Acetaminophen (Acetaminophen 325 Mg Tab) 650 mg PO Q4H PRN PRN Reason: Pain (Mild 1-3)/fever Albuterol/Ipratropium (Albuterol/Ipratropium 3.0-0.5 Mg/3 Ml Neb Soln) 3 ml NEB QIDRT [facility] Last Admin: 01/04/21 10:46 Dose: 3 ml Documented by: Amitriptyline HCl (Amitriptyline 10 Mg Tab) 10 mg PO BEDTIME [facility] Last Admin: 01/03/21 21:54 Dose: 10 mg Documented by: Bisacodyl (Bisacodyl 5 Mg Tab) 5 mg PO DAILY PRN PRN Reason: Constipation Docusate Sodium (Docusate Sodium 100 Mg Cap) 100 mg PO BID PRN PRN Reason: Constipation Enoxaparin Sodium (Enoxaparin 40 Mg/0.4 Ml Syringe) 40 mg SUBCUT DAILY [facility] Last Admin: 01/04/21 09:11 Dose: 40 mg Documented by: Folic Acid (Folic Acid 1 Mg Tab) 1 mg PO DAILY [facility] Last Admin: 01/04/21 09:10 Dose: 1 mg Documented by: Furosemide (Furosemide 40 Mg/4 Ml Vial) 40 mg IVPUSH DAILY [facility] Last Admin: 01/04/21 09:10 Dose: 40 mg Documented by: Gabapentin (Gabapentin 300 Mg Cap) 900 mg PO TID [facility] Last Admin: 01/04/21 09:11 Dose: 900 mg Documented by: Guaifenesin (Guaifenesin 600 Mg Tab.Er) 600 mg PO TID [facility] Last Admin: 01/04/21 09:11 Dose: 600 mg Documented by: Levofloxacin/Dextrose 750 mg/ (Premix) 150 mls @ 100 mls/hr IV Q24H [facility] Last Admin: 01/04/21 07:31 Dose: 100 mls/hr Documented by: Metoprolol Tartrate (Metoprolol Tartrate 25 Mg Tab) 12.5 mg PO DAILY [facility] Last Admin: 01/04/21 09:10 Dose: 12.5 mg Documented by: Morphine Sulfate (Morphine 2 Mg/Ml Syringe) 2 mg IVPUSH Q2H PRN PRN Reason: Pain (severe 7-10) Multivitamins/Iron (Multivitamins With Iron Tab.Chew) 1 tab CHEW BID [facility] Last Admin: 01/04/21 09:09 Dose: 1 tab Documented by: Nitroglycerin (Nitroglycerin 0.4 Mg Tab.Sl) 0.4 mg SL ASDIRECTED PRN PRN Reason: Chest Pain Ondansetron HCl (Ondansetron 4 Mg Tab.Dis) 4 mg PO Q6H PRN PRN Reason: Nausea able to take PO Ondansetron HCl (Ondansetron 4 Mg/2 Ml Sdv) 4 mg IV Q4H PRN PRN Reason: Nausea/Vomiting Oxycodone/Acetaminophen (Acetaminophen/Oxycodone 325-10 Mg Tab) 1 tab PO Q6H PRN PRN Reason: Pain Last Admin: 01/04/21 07:23 Dose: 1 tab Documented by: Pantoprazole Sodium (Pantoprazole 40 Mg Tab.Cr) 40 mg PO ACBREAKFAST [facility] Last Admin: 01/04/21 07:24 Dose: 40 mg Documented by: Prednisone (Prednisone 20 Mg Tab) 40 mg PO WITHBREAKFAST [facility] Last Admin: 01/04/21 07:24 Dose: 40 mg Documented by: Trazodone HCl (Trazodone 50 Mg Tab) 50 mg PO BEDTIME [facility] Last Admin: 01/03/21 21:54 Dose: 50 mg Documented by: Vitamin B Complex (Vitamin B Complex Tab) 1 each PO DAILY [facility] Last Admin: 01/04/21 09:11 Dose: 1 each Documented by: Zinc Gluconate (Zinc (Zinc Gluconate) 50 Mg Tab) 50 mg PO DAILY [facility] Last Admin: 01/04/21 09:11 Dose: 50 mg Documented by: Discontinued Medications Albuterol (Albuterol 0.083% 2.5 Mg/3 Ml Neb Soln) 2.5 mg NEB ONETIME ONE Stop: 12/30/20 02:34 Last Admin: 12/30/20 02:48 Dose: 2.5 mg Documented by: Albuterol/Ipratropium (Albuterol/Ipratropium 3.0-0.5 Mg/3 Ml Neb Soln) 3 ml NEB QID [facility] Last Admin: 12/30/20 10:52 Dose: 3 ml Documented by: Cholecalciferol (Cholecalciferol (Vitamin D3) 50,000 Unit Cap) 50,000 unit PO DAILY [facility] Stop: 01/02/21 09:01 Last Admin: 01/02/21 08:33 Dose: 50,000 unit Documented by: Cyanocobalamin (Cyanocobalamin (Vitamin B12) 1,000 Mcg/Ml Sdv) 1,000 mcg IM DAILY [facility] Stop: 01/02/21 23:59 Last Admin: 01/02/21 08:34 Dose: 1,000 mcg Documented by: Furosemide (Furosemide 40 Mg/4 Ml Vial) 40 mg IVPUSH ONETIME ONE Stop: 01/02/21 12:46 Last Admin: 01/02/21 13:10 Dose: 40 mg Documented by: Potassium Chloride/Sodium Chloride (Normal Saline With 20 Meq Kcl) 1,000 mls @ 125 mls/hr IV ASDIRECTED [facility] Last Admin: 12/30/20 04:27 Dose: 125 mls/hr Documented by: Magnesium Sulfate (Magnesium Sulfate In Water 2 Gm/50 Ml) 2 gm in 50 mls @ 12.5 mls/hr IV ONETIME ONE Stop: 12/30/20 07:29 Last Admin: 12/30/20 04:27 Dose: 12.5 mls/hr Documented by: Sodium Chloride (Normal Saline) 1,000 mls @ 125 mls/hr IV ASDIRECTED [facility] Potassium Chloride/Sodium Chloride (Normal Saline With 20 Meq Kcl) 1,000 mls @ 125 mls/hr IV ASDIRECTED [facility] Meropenem 1 gm/ Sodium (Chloride) 100 mls @ 200 mls/hr IV Q8H [facility] Last Admin: 01/02/21 07:43 Dose: 200 mls/hr Documented by: Vancomycin HCl 2 gm/ Sodium (Chloride) 500 mls @ 250 mls/hr IV ONETIME ONE Stop: 12/30/20 11:59 Last Admin: 12/30/20 10:26 Dose: 250 mls/hr Documented by: Vancomycin HCl 1.5 gm/ Sodium (Chloride) 250 mls @ 167 mls/hr IV Q12H [facility] Last Admin: 01/01/21 10:26 Dose: 167 mls/hr Documented by: Potassium Chloride 20 meq/Lidocaine HCl 2 ml/ Sodium Chloride 112 mls @ 56 mls/hr IV Q2H [facility] Stop: 12/30/20 14:59 Last Admin: 12/30/20 16:34 Dose: 56 mls/hr Documented by: Calcium Gluconate 2 gm/ Sodium (Chloride) 120 mls @ 100 mls/hr IV ONETIME ONE Stop: 12/30/20 21:29 Last Admin: 12/30/20 20:43 Dose: 100 mls/hr Documented by: Multivitamins/Minerals 10 ml/ (Zinc 1 ml/ Lactated Ringer's) 1,011 mls @ 100 mls/hr IV ONETIME ONE Stop: 01/01/21 02:06 Last Admin: 12/31/20 16:34 Dose: 100 mls/hr Documented by: Multivitamins/Minerals 10 ml/Thiamine HCl 200 mg/ Zinc 1 ml / Lactated Ringer's 1,013 mls @ 100 mls/hr IV ONETIME ONE Stop: 01/01/21 20:07 Last Admin: 01/01/21 10:22 Dose: 100 mls/hr Documented by: Lorazepam (Lorazepam 2 Mg/Ml Sdv) 1 mg IV Q6H PRN PRN Reason: Anxiety Magnesium Oxide (Magnesium Oxide 400 Mg Tab) 400 mg PO ONETIME ONE Stop: 12/30/20 03:32 Last Admin: 12/30/20 04:20 Dose: 400 mg Documented by: Methylprednisolone Sodium Succinate (Methylprednisolone Sodium Succinate 125 Mg/2 Ml Sdv) 62.5 mg IV Q6H [facility] Last Admin: 01/01/21 14:31 Dose: Not Given Documented by: Methylprednisolone Sodium Succinate (Methylprednisolone Sodium Succinate 125 Mg/2 Ml Sdv) 125 mg IV ONETIME ONE Stop: 12/30/20 06:08 Last Admin: 12/30/20 07:41 Dose: 125 mg Documented by: Multivitamins/Minerals (Multivitamins With Iron/Calcium/Folic Acid/Minerals Tab) 1 tab PO DAILY [facility] Last Admin: 01/01/21 08:06 Dose: 1 tab Documented by: Potassium Chloride (Potassium Chloride 20 Meq Tab.Er) 20 meq PO ONETIME ONE Stop: 12/30/20 03:16 Last Admin: 12/30/20 03:31 Dose: 20 meq Documented by: Potassium Chloride (Potassium Chloride 20 Meq Tab.Er) 40 meq PO ONETIME ONE Stop: 12/30/20 04:20 Last Admin: 12/30/20 04:29 Dose: 40 meq Documented by: Potassium Chloride (Potassium Chloride 20 Meq Tab.Er) 40 meq PO ONETIME ONE Stop: 12/30/20 11:01 Last Admin: 12/30/20 11:51 Dose: 40 meq Documented by: Potassium Chloride (Potassium Chloride 20 Meq Tab.Er) 40 meq PO ONETIME ONE Stop: 12/30/20 15:34 Last Admin: 12/30/20 16:34 Dose: 40 meq Documented by: Potassium Chloride (Potassium Chloride 20 Meq Tab.Er) 40 meq PO ONETIME ONE Stop: 12/31/20 13:01 Last Admin: 12/31/20 14:59 Dose: 40 meq Documented by: Potassium Chloride (Potassium Chloride 20 Meq Tab.Er) 40 meq PO ONETIME ONE Stop: 01/01/21 09:01 Last Admin: 01/01/21 08:13 Dose: 40 meq Documented by: Potassium Chloride (Potassium Chloride 20 Meq Tab.Er) 40 meq PO ONETIME ONE Stop: 01/01/21 12:31 Last Admin: 01/01/21 12:57 Dose: 40 meq Documented by: Prednisone (Prednisone 20 Mg Tab) 20 mg PO ONETIME ONE Stop: 01/01/21 12:31 Last Admin: 01/01/21 12:57 Dose: 20 mg Documented by: Vancomycin HCl (Vancomycin 1 Gm Sdv) 1 gm IV .PHARMACY TO DOSE [facility] Stop: 12/30/20 09:01
== END 2021-01-04 13:01 | disposition home or self-care (01) | DRG 190 ==
LOC: JP.ED 01:46 → JP.MS 05:24
PROVIDERS: ADMIT Hospitalist; ATTEND Hospitalist
DX: J44.0 Chronic obstructive pulmonary disease with (acute) lower respiratory infection (principal); J18.9 Pneumonia, unspecified organism; J44.1 Chronic obstructive pulmonary disease with (acute) exacerbation; E60 Dietary zinc deficiency; I11.0 Hypertensive heart disease with heart failure; I25.2 Old myocardial infarction; I73.9 Peripheral vascular disease, unspecified; I50.9 Heart failure, unspecified; G47.30 Sleep apnea, unspecified; K21.9 Gastro-esophageal reflux disease without esophagitis; G89.29 Other chronic pain; M54.9 Dorsalgia, unspecified; G43.909 Migraine, unspecified, not intractable, without status migrainosus; F41.9 Anxiety disorder, unspecified; F32.9 Major depressive disorder, single episode, unspecified; E66.9 Obesity, unspecified; E53.8 Deficiency of other specified B group vitamins; F17.210 Nicotine dependence, cigarettes, uncomplicated; L89.329 Pressure ulcer of left buttock, unspecified stage; E87.6 Hypokalemia; E83.42 Hypomagnesemia; Z79.82 Long term (current) use of aspirin; Z79.899 Other long term (current) drug therapy; Z88.5 Allergy status to narcotic agent; Z98.890 Other specified postprocedural states; Z96.649 Presence of unspecified artificial hip joint; Z20.822 Contact with and (suspected) exposure to COVID-19
CPT/HCPCS: 0241U; 36415; 71046; 71046-26; 71250; 80048; 80053; 80076; 80305-QW; 81001; 82040; 82150; 82306; 82525; 82607; 82728; 82746; 83605; 83690; 83735; 84132; 84590; 84630; 85025; 85027; 85610; 86140; 87040; 93005; 94640; 94668; 94762; 99285; A9270-GY; J0610; J1650; J1940; J1956; J2001; J2185; J2930; J3370; J3411; J3420; J3475; J3480; J7040; J7050; J7120; J7512; J7620-GY

== ENCOUNTER 2021-06-26 11:24 | Emergency (ER) | payer MEDICAID | END 2021-06-26 12:16 | disposition left against medical advice (07) | LOC: JP.ED 11:24 | DX: Z53.21 Procedure and treatment not carried out due to patient leaving prior to being seen by health care provider (principal) ==

== ENCOUNTER 2021-06-27 17:29 | Emergency (ER) | payer MEDICAID ==
--- NOTE | 2021-06-27 20:21 | EDM.PDOC ---
<Jesús Vera - Last Filed: 06/28/21 01:51> ED HPI GENERAL MEDICAL PROBLEM - General Chief Complaint: Abdominal Pain Stated Complaint: NO APPETITE, STOMACH PAIN, WEAK ALL OVER Time Seen by Provider: 06/27/21 20:05 Source of Information: Reports: Patient, Old Records, RN History Limitations: Reports: Other (poor historian) - History of Present Illness INITIAL COMMENTS - FREE TEXT/NARRATIVE: 56 yo NA male presents with a couple weeks of LUQ abdominal pain that is worse with coughing or standing. He denies injury to this area. His stools have been dark and looser than normal lately. He has not had a fever. He had a negative Covid test yesterday, but otherwise has not been seen for this pain. He is a gastric bypass patient. He says lying supine on our ER bed he is not having any pain. Onset: Gradual, Unknown/Unsure Duration: Week(s): (~2), Waxing/Waning Location: Reports: Abdomen (LUQ) Quality: Reports: Ache Severity: Moderate Improves with: Reports: Other (lying) Worsens with: Reports: Other (standing or coughing) Context: Reports: Other (See HPI) Associated Symptoms: Reports: No Other Symptoms Treatments HISTORIAN DRAMATIC ARTS: Reports: Other (see below) (none) Lower Back Pain Score (Numeric/FACES): 8 - Related Data Allergies Allergy/AdvReac Type Severity Reaction Status Date / Time codeine Allergy Cannot Verified 06/27/21 19:25 Remember Home Meds: Home Meds Albuterol Sulfate [Albuterol Sulfate HFA] 2 puff INH TID PRN 11/10/13 [History] Formoterol/Mometasone [Dulera 100 MCG/5 MCG] 1 - 2 puff INH BID 11/10/13 [History] Acetaminophen 650 mg PO Q6HR PRN 02/03/18 [History] Albuterol [Proventil Neb Soln] 2.5 mg NEB Q6HR PRN 02/03/18 [History] Aspirin [Adult Low Dose Aspirin EC] 81 mg PO DAILY 02/03/18 [History] Diclofenac Sodium [Voltaren] 50 mg PO BID PRN 02/03/18 [History] Gabapentin [Neurontin] 900 mg PO TID 02/03/18 [History] Metoprolol Tartrate [Lopressor] 12.5 mg PO DAILY 02/03/18 [History] Multivitamin with Minerals [Multiple Vitamin] 1 tab PO DAILY 02/03/18 [History] Nitroglycerin [Nitrostat] 0.4 mg SL ASDIRECTED PRN 02/03/18 [History] Omeprazole 20 mg PO DAILY 02/03/18 [History] Ondansetron [Zofran ODT] 4 mg PO Q8HR PRN 02/03/18 [History] traZODone HCl [Trazodone HCl] 50 mg PO BEDTIME 02/03/18 [History] Amitriptyline [Elavil] 10 mg PO DAILY 12/30/20 [History] oxyCODONE HCl/Acetaminophen [Percocet 10-325 mg Tablet] 1 tab PO ASDIRECTED PRN 12/30/20 [History] Past Medical History Cardiovascular History: Reports: Heart Failure, Hypertension, MT, PVD Respiratory History: Reports: Asthma, COPD, Sleep Apnea Gastrointestinal History: Reports: GERD Musculoskeletal History: Reports: Back Pain, Chronic, Other (See Below) Other Musculoskeletal History: bad knees. bad left heel Neurological History: Reports: Migraines Psychiatric History: Reports: Anxiety, Depression Endocrine/Metabolic History: Reports: Obesity/BMI 30+, Other (See Below) Other Endocrine/Metabolic History: hypoglycemic Hematologic History: Reports: B12 Deficiency Dermatologic History: Reports: Cellulitis, Other (See Below) Other Dermatologic History: pressure sore left side of buttox, treating since 2001 - Infectious Disease History Infectious Disease History: Reports: Chicken Pox - Past Surgical History HEENT Surgical History: Reports: Other (See Below) Other HEENT Surgeries/Procedures: nasal surgery Cardiovascular Surgical History: Reports: Other (See Below) Other Cardiovascular Surgeries/Procedures: angiogram GI Surgical History: Reports: Hernia, Abdominal Musculoskeletal Surgical History: Reports: Hip Replacement Social & Family History - Tobacco Use Tobacco Use Status *Q: Current Every Day Tobacco User Years of Tobacco use: 32 Packs/Tins Daily: 0.5 - Caffeine Use Caffeine Use: Reports: Coffee Caffeine Use Comment: occasional - Recreational Drug Use Recreational Drug Use: No - Living Situation & Occupation Living situation: Reports: Single ED ROS GENERAL - Review of Systems Review Of Systems: See Below Constitutional: Reports: No Symptoms HEENT: Reports: No Symptoms Respiratory: Reports: Cough (rare), Other (Is on home oxygen for COPD @ 2 liters/min). Denies: Shortness of Breath (his breathing is not worse) Cardiovascular: Reports: No Symptoms Endocrine: Reports: No Symptoms GI/Abdominal: Reports: Abdominal Pain, Diarrhea, Other ("darker stools") : Reports: No Symptoms Musculoskeletal: Reports: No Symptoms Skin: Reports: No Symptoms Neurological: Reports: No Symptoms Psychiatric: Reports: No Symptoms ED EXAM, GI/ABD - Physical Exam Exam: See Below Exam Limited By: No Limitations General Appearance: Alert, WD/WN, No Apparent Distress Eyes: Bilateral: Normal Appearance Ears: Normal External Exam, Normal Canal, Hearing Grossly Normal Nose: Normal Inspection, No Blood Throat/Mouth: Normal Inspection, Normal Lips, Normal Oropharynx. No: Normal Teeth (edentulous), Normal Voice (whispery voice), No Airway Compromise Head: Atraumatic, Normocephalic Neck: Normal Inspection Respiratory/Chest: No Respiratory Distress, Lungs Clear, Decreased Breath Sounds. No: Wheezing Cardiovascular: Regular Rate, Rhythm, No Edema GI/Abdominal Exam: Normal Bowel Sounds, Soft, Non-Tender, No Distention, Other (large abdominal old surgical scar, his buttocks decubitus uler has a clean and dry dressing in place over it. There is no surrounding redness. ). No: Distended Extremities: Normal Inspection Neurological: Alert, Oriented, CN II-XII Intact, Normal Cognition, No Motor/Sensory Deficits Psychiatric: Normal Affect, Normal Mood Skin Exam: Warm, Dry, Intact, Normal Color, No Rash Course - Radiology Interpretation Free Text/Narrative:: CT abd/pelvis with IV contrast- IMPRESSION: 1. Status post gastric bypass. Mildly prominent loop of small bowel in the left upper quadrant. This is seen on the prior examination probably represents a postsurgical change as opposed to a low-grade obstruction. 2. Bronchial wall thickening with centrilobular nodularity and consolidation of the lung bases, greater on the left suggestive of an infectious bronchiolitis/bronchopneumonia. 3. Cholelithiasis without CT evidence of cholecystitis. 4. Soft tissue thickening at the left buttock with skin ulceration. No drainable abscess. Please note that all CT scans at this facility use dose modulation, iterative reconstruction, and/or weight-based dosing when appropriate to reduce radiation dose to as low as reasonably achievable. Dictated by Joey Wright MD @ 06/27/2021 11:49:[address] Results Date: 06/27/21 CT Results Time: 23:52 Departure - Departure Disposition: Home, Self-Care 01 Condition: Fair Clinical Impression: Hypokalemia, Hypomagnesemia LLL pneumonia Qualifiers: Pneumonia type: due to unspecified organism Qualified Code(s): J18.9 - Pneumonia, unspecified organism - Discharge Information Instructions: Community-Acquired Pneumonia, Adult, [id number] Referrals: Daphney Lundy NP [Primary Care Provider] - Forms: ED Department Discharge Additional Instructions: Take full course of antibiotics, start your antibiotic tomorrow, please follow- up with your primary care on Thursday, please return to the emergency department worsening of symptoms Sepsis Event Note (ED) - Evaluation Sepsis Screening Result: No Definite Risk <YrisrIron - Last Filed: 06/28/21 09:37> Course - Vital Signs Last Recorded V/S: Last Vital Signs Temp 97.7 F 06/27/21 21:26 Pulse 56 L 06/28/21 06:35 Resp 18 06/28/21 06:35 BP 83/43 L 06/28/21 06:35 Pulse Ox 99 06/28/21 06:35 - Orders/Labs/Meds Orders: Active Orders 24 hr Category Date Time Status CULTURE BLOOD [BC] Stat Lab 06/28/21 00:25 Received Iopamidol [Isovue-300 (61%)] Med 06/27/21 21:45 Active 100 ml IV . DIRECTED Sodium Chloride 0.9% [Normal Saline] 1,000 ml Med 06/28/21 01:45 Active IV ASDIRECTED Sodium Chloride 0.9% [Normal Saline] 80 ml Med 06/27/21 21:45 Active IV ASDIRECTED Sodium Chloride 0.9% [Saline Flush] Med 06/27/21 20:14 Active 10 ml FLUSH ASDIRECTED PRN Saline Lock Insert [OM.PC] Routine Oth 06/27/21 20:14 Ordered Medication Orders Sodium Chloride (Normal Saline) 80 mls @ 3 mls/sec IV ASDIRECTED EDUARDA Last Admin: 06/27/21 21:57 Dose: 3 mls/sec Documented by: HELEN Sodium Chloride (Normal Saline) 1,000 mls @ 150 mls/hr IV ASDIRECTED EDUARDA Last Infusion: 06/28/21 06:17 Dose: 125 mls/hr Documented by: Admin: 06/28/21 06:11 Dose: 150 mls/hr Documented by: Infusion: 06/28/21 06:11 Dose: 150 mls/hr Documented by: Admin: 06/28/21 02:12 Dose: 150 mls/hr Documented by: ALESSANDRO Iopamidol (Iopamidol 612 Mg/Ml 100 Ml Bottle) 100 ml IV . DIRECTED EDUARDA Last Admin: 06/27/21 21:57 Dose: 100 ml Documented by: HELEN Sodium Chloride (Sodium Chloride 0.9% 10 Ml Syringe) 10 ml FLUSH ASDIRECTED PRN PRN Reason: Keep Vein Open Last Admin: 06/27/21 21:56 Dose: 10 ml Documented by: Admin: 06/27/21 21:30 Dose: 10 ml Documented by: SARAH Labs: Laboratory Tests 06/27/21 06/27/21 06/27/21 Range/Units 20:31 20:31 20:31 WBC 8.0 (4.5-11.0) K/uL RBC 3.88 L (4.30-5.90) M/uL Hgb 11.3 L (12.0-15.0) g/dL Hct 33.5 L (40.0-54.0) % MCV 86 (80-98) fL MCH 29 (27-31) pg MCHC 34 (32-36) % Plt Count 235 (150-400) K/uL Sodium 137 L (140-148) mmol/L Potassium 2.8 L* (3.6-5.2) mmol/L Chloride 100 (100-108) mmol/L Carbon Dioxide 33 H (21-32) mmol/L Anion Gap 6.8 (5.0-14.0) mmol/L BUN 4 L D (7-18) mg/dL Creatinine 0.6 L (0.8-1.3) mg/dL Est Cr Clr Drug Dosing 133.00 mL/min Estimated GFR (MDRD) > 60 (>60) Glucose 95 (74-106) mg/dL Lactic Acid (0.4-2.0) mmol/L Calcium 6.8 L* (8.5-10.1) mg/dL Magnesium (1.8-2.4) mg/dL C-Reactive Protein 8.31 H (0.0-0.3) mg/dL Procalcitonin ng/mL Urine Color (YELLOW) Urine Appearance (CLEAR) Urine pH (5.0-8.0) Ur Specific [place] (1.008-1.030) Urine Protein (NEGATIVE) mg/dL Urine Glucose (UA) (NEGATIVE) mg/dL Urine Ketones (NEGATIVE) mg/dL Urine Occult Blood (NEGATIVE) Urine Nitrite (NEGATIVE) Urine Bilirubin (NEGATIVE) Urine Urobilinogen (0.2-1.0) EU/dL Ur Leukocyte Esterase (NEGATIVE) Urine RBC (0-5) Urine WBC (0-5) Ur Epithelial Cells Amorphous Sediment Urine Bacteria Urine Mucus 06/27/21 06/28/21 06/28/21 Range/Units 21:06 02:04 06:44 WBC 5.0 (4.5-11.0) K/uL RBC 3.40 L (4.30-5.90) M/uL Hgb 9.7 L (12.0-15.0) g/dL Hct 29.9 L (40.0-54.0) % MCV 88 (80-98) fL MCH 29 (27-31) pg MCHC 32 (32-36) % Plt Count 214 (150-400) K/uL Sodium (140-148) mmol/L Potassium (3.6-5.2) mmol/L Chloride (100-108) mmol/L Carbon Dioxide (21-32) mmol/L Anion Gap (5.0-14.0) mmol/L BUN (7-18) mg/dL Creatinine (0.8-1.3) mg/dL Est Cr Clr Drug Dosing mL/min Estimated GFR (MDRD) (>60) Glucose (74-106) mg/dL Lactic Acid (0.4-2.0) mmol/L Calcium (8.5-10.1) mg/dL Magnesium 1.5 L (1.8-2.4) mg/dL C-Reactive Protein (0.0-0.3) mg/dL Procalcitonin ng/mL Urine Color Yellow (YELLOW) Urine Appearance Clear (CLEAR) Urine pH 6.0 (5.0-8.0) Ur Specific [place] 1.010 (1.008-1.030) Urine Protein Negative (NEGATIVE) mg/dL Urine Glucose (UA) Negative (NEGATIVE) mg/dL Urine Ketones Negative (NEGATIVE) mg/dL Urine Occult Blood Negative (NEGATIVE) Urine Nitrite Negative (NEGATIVE) Urine Bilirubin Negative (NEGATIVE) Urine Urobilinogen 0.2 (0.2-1.0) EU/dL Ur Leukocyte Esterase Negative (NEGATIVE) Urine RBC 0-5 (0-5) Urine WBC 0-5 (0-5) Ur Epithelial Cells Rare Amorphous Sediment Rare Urine Bacteria Rare Urine Mucus Not seen 06/28/21 06/28/21 06/28/21 Range/Units 06:44 06:44 06:44 WBC (4.5-11.0) K/uL RBC (4.30-5.90) M/uL Hgb (12.0-15.0) g/dL Hct (40.0-54.0) % MCV (80-98) fL MCH (27-31) pg MCHC (32-36) % Plt Count (150-400) K/uL Sodium 138 L (140-148) mmol/L Potassium 3.2 L (3.6-5.2) mmol/L Chloride 103 (100-108) mmol/L Carbon Dioxide 29 (21-32) mmol/L Anion Gap 9.2 (5.0-14.0) mmol/L BUN 4 L (7-18) mg/dL Creatinine 0.5 L (0.8-1.3) mg/dL Est Cr Clr Drug Dosing 159.60 mL/min Estimated GFR (MDRD) > 60 (>60) Glucose 79 (74-106) mg/dL Lactic Acid 0.9 (0.4-2.0) mmol/L Calcium 6.3 L* (8.5-10.1) mg/dL Magnesium 2.0 (1.8-2.4) mg/dL C-Reactive Protein (0.0-0.3) mg/dL Procalcitonin < 0.05 ng/mL Urine Color (YELLOW) Urine Appearance (CLEAR) Urine pH (5.0-8.0) Ur Specific [place] (1.008-1.030) Urine Protein (NEGATIVE) mg/dL Urine Glucose (UA) (NEGATIVE) mg/dL Urine Ketones (NEGATIVE) mg/dL Urine Occult Blood (NEGATIVE) Urine Nitrite (NEGATIVE) Urine Bilirubin (NEGATIVE) Urine Urobilinogen (0.2-1.0) EU/dL Ur Leukocyte Esterase (NEGATIVE) Urine RBC (0-5) Urine WBC (0-5) Ur Epithelial Cells Amorphous Sediment Urine Bacteria Urine Mucus Meds: Medications Generic Name Dose Route Start Last Admin Trade Name Freq PRN Reason Stop Dose Admin Sodium Chloride 80 mls @ 3 mls/sec 06/27/21 21:45 06/27/21 21:57 Normal Saline IV 3 mls/sec ASDIRECTED EDUARDA Administration Sodium Chloride 1,000 mls @ 150 mls/hr 06/28/21 01:45 06/28/21 06:17 Normal Saline IV 125 mls/hr ASDIRECTED EDUARDA Infusion Iopamidol 100 ml 06/27/21 21:45 06/27/21 21:57 Iopamidol 612 Mg/Ml 100 Ml Bottle IV 100 ml . DIRECTED EDUARDA Administration Sodium Chloride 10 ml 06/27/21 20:14 06/27/21 21:56 Sodium Chloride 0.9% 10 Ml Syringe FLUSH 10 ml ASDIRECTED PRN Administration Keep Vein Open Discontinued Medications Generic Name Dose Route Start Last Admin Trade Name Freq PRN Reason Stop Dose Admin Potassium Chloride 20 meq/ 100 mls @ 50 mls/hr 06/27/21 21:06 06/27/21 21:29 Premix IV 06/27/21 23:05 50 mls/hr ONETIME ONE Administration Magnesium Sulfate 2 gm/ Premix 50 mls @ 25 mls/hr 06/27/21 21:19 06/28/21 00:30 IV 06/27/21 23:18 25 mls/hr ONETIME ONE Administration Sodium Chloride 1,000 mls @ 1,000 mls/hr 06/27/21 23:05 06/28/21 00:45 Normal Saline IV 06/28/21 00:04 Not Given .BOLUS ONE Levofloxacin/Dextrose 750 mg/ 150 mls @ 100 mls/hr 06/27/21 23:53 06/28/21 00:30 Premix IV 06/28/21 01:22 100 mls/hr ONETIME ONE Administration Magnesium Sulfate Confirm 06/28/21 00:20 06/28/21 00:43 Magnesium Sulfate In Water 2 Gm/50 Ml Administered 06/28/21 00:21 Not Given Dose 50 mls @ as directed .ROUTE .STK-MED ONE Lidocaine HCl 5 ml 06/27/21 21:11 06/27/21 21:29 Lidocaine 1% 5 Ml Sdv INJECT 06/27/21 21:12 5 ml ONETIME ONE Administration Potassium Chloride 40 meq 06/27/21 21:08 06/27/21 21:29 Potassium Chloride 20 Meq Tab.Er PO 06/27/21 21:09 40 meq ONETIME ONE Administration Potassium Chloride 20 meq 06/28/21 00:01 06/28/21 00:30 Potassium Chloride 20 Meq Tab.Er PO 06/28/21 00:02 20 meq ONETIME ONE Administration Departure - Departure Time of Disposition: 09:37 Sepsis Event Note (ED) - Focused Exam Vital Signs: Vital Signs Pulse Resp BP Pulse Ox 06/28/21 06:35 56 L 18 83/43 L 99 06/28/21 06:05 59 L 88/49 L 06/28/21 05:50 57 L 86/47 L 06/28/21 05:20 69 79/46 L 06/28/21 05:05 68 75/38 L 06/28/21 04:50 53 L 80/45 L 06/28/21 04:35 51 L 74/39 L 06/28/21 04:20 53 L 80/48 L 06/28/21 04:05 53 L 74/41 L 06/28/21 03:50 54 L 80/43 L 06/28/21 03:20 55 L 18 76/41 L 100 06/28/21 03:05 55 L 18 70/40 L 100 06/28/21 02:50 59 L 18 78/44 L 100 06/28/21 02:35 59 L 77/43 L 06/28/21 02:20 61 74/44 L 06/28/21 02:05 61 80/48 L 06/28/21 01:51 59 L 79/47 L 06/28/21 01:20 62 95/53 L 06/28/21 01:05 61 104/62 06/28/21 00:50 94/57 L 06/28/21 00:36 60 108/63 06/28/21 00:05 59 L 81/44 L 06/27/21 23:50 60 80/46 L 06/27/21 23:20 63 80/43 L 06/27/21 22:56 73 18 81/50 L 100 06/27/21 22:26 70 85/55 L 06/27/21 22:05 88 90/55 L - Assessment/Plan Plan: Assessment Acuity = acute Site and laterality = left lower lobe pneumonia Etiology = probable bacterial cause Manifestations = none Location of injury = Home Lab values = CBC unremarkable other than hemoglobin initially 11.7 and then after hydration down to 9 normochromic anemia, potassium initially 2.8 after correction to 3.2 still consistent with hyperkalemia, calcium initially 6.8 after hydration down to 6.3 consistent with hypercalcemia, procalcitonin was negative, magnesium low at 1.5 after correction to 2.0 consistent hypomagnesemia lactic acid normal 0.[address] scan describes a pneumonia no acute abdominal problem Plan He was given fluids potassium replacement in the emergency department as well as antibiotics. This gentleman uses oxygen at home his blood pressure has remained low while in the emergency however he feels completely asymptomatic we currently have no beds at our facility and have no beds in the area due to pandemic. I offered to keep him in the emergency department until bed may open up however I do not know when this may happen he elected to try going home he has oxygen at home we did go for a walk around the emergency department he states he felt fine did not feel lightheaded feels he has had his normal self. Therefore sent home on Levaquin 500 mg once a day for 7 days he can start that antibiotic tomorrow. He will use his home oxygen he states he can get into his regular physician on Thursday for reevaluation This note was dictated using [employer] voice recognition software please call with any questions on syntax or grammar.
[2021-06-27] MEDS ORDERED: Potassium Chloride 20 MEQ in Premix Bag 1 BAG IV ONE (21:06)
[2021-06-27] MEDS ORDERED: Potassium Chloride 20 MEQ Tab.ER PO ONE (21:08)
[2021-06-27] MEDS ORDERED: Magnesium Sulfate/Water 2 GM in Premix Bag 1 BAG IV ONE (21:19)
[2021-06-27] MEDS: Sodium Chloride 0.9% 10 ML Syringe FLUSH PRN ×2 (21:30→21:56)
[2021-06-27] MEDS ORDERED: Sodium Chloride 0.9% 80 ML IV SCH (21:45)
[2021-06-27] MEDS ORDERED: Iopamidol 612 MG/ML 100 ML Bottle IV SCH (21:45)
[2021-06-27] MEDS: Sodium Chloride 0.9% 1,000 ML IV ONE (23:18)
--- NOTE | 2021-06-27 23:49 | CRLCT ---
For Patients: As a result of the Century Cures Act, medical imaging exams and procedure reports are released immediately into your electronic medical record. You may view this report before your referring provider. If you have questions, please contact your health care provider. INDICATION: Left upper quadrant pain, history of gastric bypass TECHNIQUE: Axial images were obtained from the diaphragm to the pubic symphysis. Reformats were obtained in the coronal and sagittal plane. IV Contrast: 100 cc Isovue-300 Oral Contrast: None COMPARISON: Abdomen and pelvis CT 01/20/2011 FINDINGS: Lower chest: Bronchial wall thickening with areas of consolidation within both lungs as well as centrilobular nodularity. Liver: Unremarkable. Normal in size and attenuation. No masses. Gallbladder and bile ducts: Cholelithiasis without pericholecystic inflammation. Spleen: Unremarkable. Normal in size without mass. Pancreas: Unremarkable. No mass or inflammation. Adrenal glands: Unremarkable. No nodules. Kidneys: No hydronephrosis. Left renal cyst measuring 2.1 centimeters, increased in size compared to the prior exam. Vasculature: Unremarkable. GI tract: Status post gastric bypass. Suture line within small bowel in the left abdomen with a mildly prominent loop of bowel at this level although similar to the prior exam. Multiple ventral fat containing hernias. Appendix is unremarkable. Pelvis: Pelvis partially obscured by beam hardening artifact from the patient`s right total hip replacement. Left buttock ulceration (2, 157). Bones: Status post right total hip replacement. Rightward curvature lumbar spine with diffuse degenerative disc disease. IMPRESSION: 1. Status post gastric bypass. Mildly prominent loop of small bowel in the left upper quadrant. This is seen on the prior examination probably represents a postsurgical change as opposed to a low-grade obstruction. 2. Bronchial wall thickening with centrilobular nodularity and consolidation of the lung bases, greater on the left suggestive of an infectious bronchiolitis/bronchopneumonia. 3. Cholelithiasis without CT evidence of cholecystitis. 4. Soft tissue thickening at the left buttock with skin ulceration. No drainable abscess. Please note that all CT scans at this facility use dose modulation, iterative reconstruction, and/or weight-based dosing when appropriate to reduce radiation dose to as low as reasonably achievable. Dictated by Joey Wright MD @ 06/27/2021 11:49:19 PM (Electronically Signed)
[2021-06-27] MEDS ORDERED: Levofloxacin/Dextrose 5%-Water 750 MG in Premix Bag 1 BAG IV ONE (23:53)
[2021-06-28] MEDS ORDERED: Potassium Chloride 20 MEQ Tab.ER PO ONE (00:01)
[2021-06-28] MEDS ORDERED: Magnesium Sulfate/Water 50 ML ONE (00:20)
[2021-06-28] MEDS: Sodium Chloride 0.9% 1,000 ML IV ONE (00:45)
[2021-06-28] MEDS: Sodium Chloride 0.9% 1,000 ML IV SCH ×2 (02:12→06:11)
== END 2021-06-28 10:25 | disposition home or self-care (01) ==
LOC: JP.ED 17:29
DX: J18.9 Pneumonia, unspecified organism (principal); E87.6 Hypokalemia; E83.42 Hypomagnesemia; I11.0 Hypertensive heart disease with heart failure; I50.9 Heart failure, unspecified; I25.2 Old myocardial infarction; J44.9 Chronic obstructive pulmonary disease, unspecified; K21.9 Gastro-esophageal reflux disease without esophagitis; E66.9 Obesity, unspecified; Z68.23 Body mass index [BMI] 23.0-23.9, adult; Z72.0 Tobacco use; Z88.5 Allergy status to narcotic agent; Z79.82 Long term (current) use of aspirin; Z79.899 Other long term (current) drug therapy
CPT/HCPCS: 36415; 74177; 80048; 81001; 82272; 83605; 83735; 84145; 85027; 86140; 87040; 96365; 96366; 96367; 96368; 99285; A9270; J1956; J3475; J3480; J7030; Q9967

== ENCOUNTER 2021-10-07 11:41 | Emergency (ER) | payer MEDICAID ==
[2021-10-07] MEDS ORDERED: predniSONE 20 MG Tab PO ONE (12:51)
[2021-10-07] MEDS ORDERED: Doxycycline 100 MG Cap PO ONE (12:53)
[2021-10-07] MEDS ORDERED: Sodium Chloride 0.9% 500 ML IV ONE (12:54)
[2021-10-07 13:41] LABS: CORONAVIRUS COVID-19 NAA POSITIVE (NEGATIVE)
[2021-10-07] MEDS ORDERED: Calcium Gluconate 10% 1 GM/10 ML SDV IVPUSH ONE (14:13)
[2021-10-07] MEDS ORDERED: Calcium Carbonate 500 MG Tab.Chew PO ONE (14:36)
== END 2021-10-07 17:15 | disposition home or self-care (01) ==
LOC: JP.ED 11:41
DX: U07.1 COVID-19 (principal); J44.1 Chronic obstructive pulmonary disease with (acute) exacerbation; E87.6 Hypokalemia; D64.9 Anemia, unspecified; E83.51 Hypocalcemia; I11.0 Hypertensive heart disease with heart failure; I50.9 Heart failure, unspecified; K21.9 Gastro-esophageal reflux disease without esophagitis; E66.9 Obesity, unspecified; Z68.43 Body mass index [BMI] 50.0-59.9, adult; Z72.0 Tobacco use; Z88.5 Allergy status to narcotic agent; Z79.82 Long term (current) use of aspirin; Z79.899 Other long term (current) drug therapy
CPT/HCPCS: 0241U; 36415; 71045; 80053; 83605; 84145; 85025; 87040; 99285; A9270; J7040; J7512

== ENCOUNTER 2022-01-12 05:35 | Inpatient (IN) | payer MEDICAID ==
[2022-01-12] MEDS ORDERED: Sodium Chloride 0.9% 1,000 ML IV SCH ×2 (05:45→06:45)
[2022-01-12] MEDS ORDERED: Piperacillin/Tazobactam 3.375 GM in Sodium Chloride 0.9% 50 ML IV ONE (06:11)
[2022-01-12 06:12] LABS: ESTIMATED GFR > 60 (>60)
[2022-01-12 06:36] LABS: CORONAVIRUS COVID-19 NAA POSITIVE (NEGATIVE)
[2022-01-12] MEDS ORDERED: SODIUM CHLORIDE 0.9% IV STA (06:47)
[2022-01-12] MEDS ORDERED: Iopamidol 612 MG/ML 100 ML Bottle IV STA (06:47)
[2022-01-12] MEDS ORDERED: Norepinephrine 8 MG in Dextrose 5% in Water 250 ML IV SCH ×2 (07:15)
[2022-01-12] MEDS ORDERED: REMDESIVIR 200 MG in Sodium Chloride 0.9% 250 ML IV ONE (08:04)
[2022-01-12] MEDS ORDERED: fentaNYL 100 MCG/2 ML SDV IVPUSH ONE (08:16)
[2022-01-12] MEDS ORDERED: Dexamethasone 4 MG/ML SDV IVPUSH SCH (09:00)
[2022-01-12] MEDS ORDERED: Vasopressin 100 UNITS in Dextrose 5% in Water 250 ML IV SCH ×2 (09:45)
[2022-01-12] MEDS ORDERED: Meropenem 500 MG SDV ONE (10:13)
[2022-01-12] MEDS ORDERED: Bupivacaine 0.5% 50 ML MDV ONE (10:13)
[2022-01-12] MEDS ORDERED: Lidocaine 1% with EPINEPHrine 1:100,000 50 ML MDV ONE (10:14)
[2022-01-12] MEDS ORDERED: Lidocaine 2% 5 ML SDV ONE (10:26)
[2022-01-12] MEDS ORDERED: Neostigmine Methylsulfate 1 MG/ML 5 ML Syringe ONE (10:26)
[2022-01-12] MEDS ORDERED: fentaNYL 250 MCG/5 ML SDV ONE (10:26)
[2022-01-12] MEDS ORDERED: Glycopyrrolate 0.2 MG/ML 5 ML MDV ONE (10:26)
[2022-01-12] MEDS ORDERED: Midazolam 1 MG/ML 2 ML SDV ONE (10:26)
[2022-01-12] MEDS ORDERED: Ondansetron 4 MG/2 ML SDV ONE (10:26)
[2022-01-12] MEDS ORDERED: Rocuronium 50 MG/5 ML Vial ONE ×2 (10:26→11:56)
[2022-01-12] MEDS ORDERED: Propofol 200 MG/20 ML SDV ONE (10:26)
[2022-01-12] MEDS ORDERED: Ketamine 500 MG/5 ML MDV ONE (10:28)
[2022-01-12] MEDS ORDERED: Heparin Sodium 5,000 UNITS in Sodium Chloride 0.9% 500 ML IV SCH ×2 (10:30→15:00)
[2022-01-12] MEDS ORDERED: Phenylephrine 1% 10 MG/ML SDV ONE ×2 (11:31→11:52)
[2022-01-12] MEDS ORDERED: Dexamethasone 4 MG/ML SDV ONE (12:23)
[2022-01-12] MEDS ORDERED: Sugammadex Sodium 200 MG/2 ML VIAL ONE (12:46)
[2022-01-12] MEDS ORDERED: Albuterol 0.083% 2.5 MG/3 ML Neb Soln NEB PRN (13:49)
[2022-01-12] MEDS ORDERED: Acetaminophen 650 MG Supp RECTAL PRN (13:49)
[2022-01-12] MEDS ORDERED: Ondansetron 4 MG/2 ML SDV IV PRN (13:49)
[2022-01-12 14:03] LABS: ESTIMATED GFR > 60 (>60)
[2022-01-12] MEDS: propofoL 100 ML IV SCH (14:35)
[2022-01-12] MEDS ORDERED: Calcium Gluconate 2 GM in Sodium Chloride 0.9% 100 ML IV ONE ×2 (15:00→19:00)
[2022-01-12] MEDS: Albuterol/Ipratropium 3.0-0.5 MG/3 ML Neb Soln NEB SCH ×2 (15:05→21:10)
[2022-01-12] MEDS: Magnesium Sulfate/Water 2 GM in Premix Bag 1 BAG IV SCH ×2 (15:11→21:03)
[2022-01-12] MEDS: Pantoprazole 40 MG Vial IV SCH (15:19)
[2022-01-12] MEDS: Norepinephrine 8 MG in Dextrose 5% in Water 250 ML IV SCH ×2 (15:56)
[2022-01-12] MEDS ORDERED: Lactated Ringers 1,000 ML IV SCH ×2 (16:15→18:15)
[2022-01-12 17:13] LABS: ESTIMATED GFR > 60 (>60)
[2022-01-12] MEDS: Meropenem 1 GM in Sodium Chloride 0.9% 100 ML IV SCH (17:28)
[2022-01-12] MEDS: HYDROmorphone 0.5 MG/0.5 ML Syringe IVPUSH PRN ×2 (19:56→21:03)
[2022-01-12] MEDS: Formoterol/Mometasone 100-5 MCG 8.8 GM Inhaler IH SCH (21:09)
[2022-01-12] MEDS: Lactated Ringers 1,000 ML IV SCH (22:07)
[2022-01-13] MEDS: Norepinephrine 8 MG in Dextrose 5% in Water 250 ML IV SCH ×4 (00:54→13:51)
[2022-01-13] MEDS: Meropenem 1 GM in Sodium Chloride 0.9% 100 ML IV SCH ×3 (02:04→18:14)
[2022-01-13] MEDS: Pantoprazole 40 MG Vial IV SCH ×2 (03:37→15:11)
[2022-01-13] MEDS: HYDROmorphone 0.5 MG/0.5 ML Syringe IVPUSH PRN ×4 (03:54→20:46)
[2022-01-13 04:55] LABS: ESTIMATED GFR > 60 (>60)
[2022-01-13] MEDS: Lactated Ringers 1,000 ML IV SCH ×3 (06:02→21:22)
[2022-01-13] MEDS: propofoL 100 ML IV SCH ×2 (06:23→18:14)
[2022-01-13] MEDS: Albuterol/Ipratropium 3.0-0.5 MG/3 ML Neb Soln NEB SCH ×4 (08:40→20:46)
[2022-01-13] MEDS: Formoterol/Mometasone 100-5 MCG 8.8 GM Inhaler IH SCH (08:41)
[2022-01-13] MEDS ORDERED: Vasopressin 40 UNITS in Dextrose 5% in Water 100 ML IV SCH ×2 (10:00)
[2022-01-13] MEDS: Hydrocortisone Sodium Succinate 100 MG/2 ML SDV IVPUSH SCH ×2 (10:29→22:05)
[2022-01-13] MEDS ORDERED: Formoterol/Mometasone 100-5 MCG 8.8 GM Inhaler IH SCH (21:00)
[2022-01-14] MEDS: Meropenem 1 GM in Sodium Chloride 0.9% 100 ML IV SCH ×3 (01:47→17:51)
[2022-01-14] MEDS: Pantoprazole 40 MG Vial IV SCH ×2 (04:03→16:16)
[2022-01-14] MEDS: Norepinephrine 8 MG in Dextrose 5% in Water 250 ML IV SCH ×2 (04:36)
[2022-01-14] MEDS: HYDROmorphone 0.5 MG/0.5 ML Syringe IVPUSH PRN ×8 (04:52→23:12)
[2022-01-14 05:00] LABS: ESTIMATED GFR > 60 (>60)
[2022-01-14] MEDS: Lactated Ringers 1,000 ML IV SCH (05:25)
[2022-01-14] MEDS: propofoL 100 ML IV SCH (06:09)
[2022-01-14] MEDS: Albuterol/Ipratropium 3.0-0.5 MG/3 ML Neb Soln NEB SCH ×2 (07:24→11:21)
[2022-01-14] MEDS: Dextrose 5%-Lact Ringers w/KCl 1,000 ML IV SCH (10:58)
[2022-01-14] MEDS: Albuterol 8 GM Inhaler INH SCH ×2 (14:48→21:00)
[2022-01-15] MEDS: Albuterol 8 GM Inhaler INH PRN ×2 (01:12→13:32)
[2022-01-15] MEDS: HYDROmorphone 0.5 MG/0.5 ML Syringe IVPUSH PRN ×5 (01:17→12:19)
[2022-01-15] MEDS: Meropenem 1 GM in Sodium Chloride 0.9% 100 ML IV SCH ×3 (02:49→17:06)
[2022-01-15] MEDS: Pantoprazole 40 MG Vial IV SCH (03:46)
[2022-01-15 04:54] LABS: ESTIMATED GFR > 60 (>60)
[2022-01-15] MEDS: Dextrose 5%-Lact Ringers w/KCl 1,000 ML IV SCH (06:01)
[2022-01-15] MEDS: Albuterol 8 GM Inhaler INH SCH ×4 (07:18→21:05)
[2022-01-15] MEDS: Tiotropium Bromide 4 GM Inhalation Spray (2.5mcg/1 dose; 10 doses) INH SCH (07:18)
[2022-01-15] MEDS ORDERED: Sodium Chloride 0.65% Nasal Spray 45 ML Bottle NASBOTH PRN (07:27)
[2022-01-15] MEDS: Furosemide 20 MG/2 ML VIAL IVPUSH SCH ×2 (08:53→21:05)
[2022-01-15] MEDS: Potassium Phos in 0.9 % NaCl 15 MMOL in Premix Bag 1 BAG IV SCH ×8 (08:57→15:11)
[2022-01-15] MEDS ORDERED: Furosemide 20 MG/2 ML VIAL IVPUSH SCH (09:00)
[2022-01-15] MEDS: Nicotine 21 MG/24 Hr Patch TRDERM SCH (11:54)
[2022-01-15] MEDS: oxyCODONE 5 MG Tab PO PRN ×3 (13:59→22:25)
[2022-01-15] MEDS: Pantoprazole 40 MG Tab.CR PO SCH (17:06)
[2022-01-15] MEDS: LORazepam 1 MG Tab PO PRN (22:25)
[2022-01-16] MEDS: Meropenem 1 GM in Sodium Chloride 0.9% 100 ML IV SCH ×2 (02:06→10:07)
[2022-01-16] MEDS: oxyCODONE 5 MG Tab PO PRN ×4 (04:20→23:30)
[2022-01-16] MEDS: LORazepam 1 MG Tab PO PRN ×3 (04:21→23:30)
[2022-01-16 05:43] LABS: ESTIMATED GFR > 60 (>60)
[2022-01-16] MEDS: Tiotropium Bromide 4 GM Inhalation Spray (2.5mcg/1 dose; 10 doses) INH SCH (07:36)
[2022-01-16] MEDS: Albuterol 8 GM Inhaler INH SCH ×4 (07:36→20:58)
[2022-01-16] MEDS: Pantoprazole 40 MG Tab.CR PO SCH ×2 (08:03→16:56)
[2022-01-16] MEDS: Bisacodyl 5 MG Tab PO SCH ×2 (09:13→20:55)
[2022-01-16] MEDS: Docusate Sodium 100 MG Cap PO SCH ×2 (09:13→20:55)
[2022-01-16] MEDS: Nicotine 21 MG/24 Hr Patch TRDERM SCH (09:15)
[2022-01-16] MEDS ORDERED: Potassium Phosphates 25 MMOLE in Sodium Chloride 0.9% 100 ML IV ONE (10:00)
[2022-01-16] MEDS ORDERED: Potassium Phosphates 20 MMOLE in Sodium Chloride 0.9% 100 ML IV ONE (14:30)
[2022-01-16] MEDS: Amoxicillin/Clavulanate K 875-125 MG Tab PO SCH (20:55)
[2022-01-16] MEDS: Dextrose 5%-Lact Ringers w/KCl 1,000 ML IV SCH (21:01)
[2022-01-17] MEDS: oxyCODONE 5 MG Tab PO PRN ×3 (04:28→20:03)
[2022-01-17 05:10] LABS: ESTIMATED GFR > 60 (>60)
[2022-01-17] MEDS: Albuterol 8 GM Inhaler INH SCH ×5 (07:22→20:05)
[2022-01-17] MEDS: Tiotropium Bromide 4 GM Inhalation Spray (2.5mcg/1 dose; 10 doses) INH SCH (07:22)
[2022-01-17] MEDS: Pantoprazole 40 MG Tab.CR PO SCH ×2 (08:24→17:38)
[2022-01-17] MEDS: Bisacodyl 5 MG Tab PO SCH ×2 (08:25→21:56)
[2022-01-17] MEDS: Amoxicillin/Clavulanate K 875-125 MG Tab PO SCH ×2 (08:25→22:03)
[2022-01-17] MEDS: Docusate Sodium 100 MG Cap PO SCH ×2 (08:25→21:56)
[2022-01-17] MEDS: Nicotine 21 MG/24 Hr Patch TRDERM SCH (08:26)
[2022-01-17] MEDS: Magnesium Oxide 400 MG Tab PO SCH (08:37)
[2022-01-17] MEDS: Magnesium Sulfate/Water 2 GM in Premix Bag 1 BAG IV SCH ×2 (14:20→19:51)
[2022-01-17 17:12] LABS: H. PYLORI BREATH TEST Negative (Negative)
[2022-01-17] MEDS: Albuterol 8 GM Inhaler INH PRN ×2 (20:00→22:40)
[2022-01-18] MEDS ORDERED: Tamsulosin 0.4 MG Cap.ER PO ONE (00:40)
[2022-01-18] MEDS: oxyCODONE 5 MG Tab PO PRN ×5 (01:30→20:21)
[2022-01-18 05:30] LABS: ESTIMATED GFR > 60 (>60)
[2022-01-18] MEDS: Albuterol 8 GM Inhaler INH SCH ×4 (08:00→20:21)
[2022-01-18] MEDS: Tiotropium Bromide 4 GM Inhalation Spray (2.5mcg/1 dose; 10 doses) INH SCH (08:11)
[2022-01-18] MEDS: Nicotine 21 MG/24 Hr Patch TRDERM SCH (08:27)
[2022-01-18] MEDS: Pantoprazole 40 MG Tab.CR PO SCH ×2 (08:27→15:41)
[2022-01-18] MEDS: Docusate Sodium 100 MG Cap PO SCH ×2 (08:28→20:20)
[2022-01-18] MEDS: Amoxicillin/Clavulanate K 875-125 MG Tab PO SCH ×2 (08:28→20:19)
[2022-01-18] MEDS: Bisacodyl 5 MG Tab PO SCH ×2 (08:29→20:20)
[2022-01-18] MEDS: Magnesium Oxide 400 MG Tab PO SCH (08:29)
[2022-01-18] MEDS: Tamsulosin 0.4 MG Cap.ER PO SCH (08:29)
[2022-01-18] MEDS: Calcium Carbonate 500 MG Tab.Chew PO SCH ×2 (08:33→20:20)
[2022-01-18] MEDS ORDERED: Furosemide 20 MG/2 ML VIAL IVPUSH ONE (11:20)
[2022-01-19] MEDS: oxyCODONE 5 MG Tab PO PRN ×5 (01:10→21:10)
[2022-01-19] MEDS ORDERED: Dimethicone 20%/Zinc Oxide 25% 56 GM Spray Bottle TOP PRN (03:57)
[2022-01-19 05:23] LABS: ESTIMATED GFR > 60 (>60)
[2022-01-19] MEDS: Pantoprazole 40 MG Tab.CR PO SCH ×2 (07:25→16:43)
[2022-01-19] MEDS ORDERED: Potassium Chloride 20 MEQ Tab.ER PO ONE ×2 (07:30→10:00)
[2022-01-19] MEDS: Albuterol 8 GM Inhaler INH SCH ×4 (07:54→21:13)
[2022-01-19] MEDS: Tiotropium Bromide 4 GM Inhalation Spray (2.5mcg/1 dose; 10 doses) INH SCH (07:54)
[2022-01-19] MEDS: Docusate Sodium 100 MG Cap PO SCH ×2 (09:55→21:13)
[2022-01-19] MEDS: Amoxicillin/Clavulanate K 875-125 MG Tab PO SCH ×2 (09:55→21:13)
[2022-01-19] MEDS: Bisacodyl 5 MG Tab PO SCH ×2 (09:55→21:13)
[2022-01-19] MEDS: Magnesium Oxide 400 MG Tab PO SCH (09:56)
[2022-01-19] MEDS: Nicotine 21 MG/24 Hr Patch TRDERM SCH (09:56)
[2022-01-19] MEDS: Tamsulosin 0.4 MG Cap.ER PO SCH (09:56)
[2022-01-19] MEDS: Calcium Carbonate 500 MG Tab.Chew PO SCH ×2 (09:57→21:13)
[2022-01-20] MEDS: oxyCODONE 5 MG Tab PO PRN ×6 (01:15→23:34)
[2022-01-20] MEDS: LORazepam 1 MG Tab PO PRN (04:33)
[2022-01-20 05:21] LABS: ESTIMATED GFR > 60 (>60)
[2022-01-20] MEDS: Albuterol 8 GM Inhaler INH SCH ×4 (07:29→20:01)
[2022-01-20] MEDS: Tiotropium Bromide 4 GM Inhalation Spray (2.5mcg/1 dose; 10 doses) INH SCH (07:29)
[2022-01-20] MEDS: Pantoprazole 40 MG Tab.CR PO SCH ×2 (08:33→16:42)
[2022-01-20] MEDS: Docusate Sodium 100 MG Cap PO SCH ×2 (08:34→20:00)
[2022-01-20] MEDS: Amoxicillin/Clavulanate K 875-125 MG Tab PO SCH ×2 (08:34→20:00)
[2022-01-20] MEDS: Bisacodyl 5 MG Tab PO SCH ×2 (08:35→20:00)
[2022-01-20] MEDS: Tamsulosin 0.4 MG Cap.ER PO SCH (08:35)
[2022-01-20] MEDS: Magnesium Oxide 400 MG Tab PO SCH (08:36)
[2022-01-20] MEDS: Nicotine 21 MG/24 Hr Patch TRDERM SCH (08:36)
[2022-01-20] MEDS: Calcium Carbonate 500 MG Tab.Chew PO SCH ×2 (08:37→20:00)
[2022-01-20] MEDS ORDERED: Calcium Gluconate 2 GM in Sodium Chloride 0.9% 100 ML IV ONE (09:00)
[2022-01-20] MEDS ORDERED: Furosemide 20 MG/2 ML VIAL IVPUSH ONE ×2 (11:00→18:45)
[2022-01-21] MEDS: Acetaminophen 500 MG Tab PO PRN (02:08)
[2022-01-21] MEDS: Albuterol 8 GM Inhaler INH PRN (02:15)
[2022-01-21] MEDS ORDERED: Sodium Chloride 0.9% 1,000 ML IV ONE (02:35)
[2022-01-21 03:13] LABS: ESTIMATED GFR > 60 (>60)
[2022-01-21] MEDS ORDERED: Iopamidol 755 Mg/ML 100 ML Bottle IV STA (04:11)
[2022-01-21] MEDS ORDERED: Sodium Chloride 0.9% 75 ML IV STA (04:11)
[2022-01-21] MEDS: oxyCODONE 5 MG Tab PO PRN ×5 (04:11→22:02)
[2022-01-21] MEDS: Albuterol 8 GM Inhaler INH SCH ×4 (07:22→22:03)
[2022-01-21] MEDS: Tiotropium Bromide 4 GM Inhalation Spray (2.5mcg/1 dose; 10 doses) INH SCH (07:22)
[2022-01-21] MEDS ORDERED: Piperacillin/Tazobactam/Dext 3.375 GM in Premix Bag 1 BAG IV SCH (08:00)
[2022-01-21] MEDS: Amoxicillin/Clavulanate K 875-125 MG Tab PO SCH (08:08)
[2022-01-21] MEDS: Bisacodyl 5 MG Tab PO SCH ×2 (08:08→22:02)
[2022-01-21] MEDS: Pantoprazole 40 MG Tab.CR PO SCH ×2 (08:08→16:22)
[2022-01-21] MEDS: Docusate Sodium 100 MG Cap PO SCH ×2 (08:08→21:55)
[2022-01-21] MEDS: Magnesium Oxide 400 MG Tab PO SCH (08:09)
[2022-01-21] MEDS: Tamsulosin 0.4 MG Cap.ER PO SCH (08:09)
[2022-01-21] MEDS: Calcium Carbonate 500 MG Tab.Chew PO SCH ×2 (08:09→21:59)
[2022-01-21] MEDS: Nicotine 21 MG/24 Hr Patch TRDERM SCH (08:14)
[2022-01-21] MEDS ORDERED: Linezolid 600 MG in Premix Bag 1 BAG IV SCH ×2 (08:30→09:00)
[2022-01-21] MEDS: Norepinephrine Bit/D5W Premix 4 MG in Premix Bag 1 BAG IV SCH ×2 (08:45→22:21)
[2022-01-21] MEDS ORDERED: Calcium Gluconate 2 GM in Sodium Chloride 0.9% 100 ML IV ONE (10:00)
[2022-01-21] MEDS ORDERED: Lidocaine 1% 50 ML MDV ONE (13:28)
[2022-01-21] MEDS ORDERED: Lidocaine 1% 50 ML MDV INJECT ONE (14:00)
[2022-01-21] MEDS: LORazepam 1 MG Tab PO PRN ×2 (18:08→22:03)
[2022-01-21] MEDS: Piperacillin/Tazobactam/Dext 3.375 GM in Premix Bag 1 BAG IV SCH (19:45)
[2022-01-22] MEDS: Linezolid 600 MG in Premix Bag 1 BAG IV SCH ×2 (00:30→12:32)
[2022-01-22] MEDS: Piperacillin/Tazobactam/Dext 3.375 GM in Premix Bag 1 BAG IV SCH ×4 (01:35→19:59)
[2022-01-22] MEDS: oxyCODONE 5 MG Tab PO PRN ×4 (03:41→21:01)
[2022-01-22 05:28] LABS: ESTIMATED GFR > 60 (>60)
[2022-01-22] MEDS ORDERED: Calcium Gluconate 2 GM in Sodium Chloride 0.9% 100 ML IV ONE ×2 (05:41→17:38)
[2022-01-22] MEDS: Tiotropium Bromide 4 GM Inhalation Spray (2.5mcg/1 dose; 10 doses) INH SCH (07:11)
[2022-01-22] MEDS: Albuterol 8 GM Inhaler INH SCH ×4 (07:12→21:00)
[2022-01-22] MEDS: Acetaminophen 500 MG Tab PO PRN ×3 (07:45→21:01)
[2022-01-22] MEDS: Pantoprazole 40 MG Tab.CR PO SCH ×2 (07:47→17:17)
[2022-01-22] MEDS: Albumin Human 25 GM in Premix Bag 1 BAG IV SCH (08:50)
[2022-01-22] MEDS: Tamsulosin 0.4 MG Cap.ER PO SCH (09:32)
[2022-01-22] MEDS: Calcium Carbonate 500 MG Tab.Chew PO SCH ×2 (09:33→21:01)
[2022-01-22] MEDS: Docusate Sodium 100 MG Cap PO SCH ×2 (09:33→21:01)
[2022-01-22] MEDS: Bisacodyl 5 MG Tab PO SCH ×2 (09:33→21:00)
[2022-01-22] MEDS: Nicotine 21 MG/24 Hr Patch TRDERM SCH (09:33)
[2022-01-22] MEDS: Magnesium Oxide 400 MG Tab PO SCH (09:33)
[2022-01-22] MEDS: Albuterol 8 GM Inhaler INH PRN (09:42)
[2022-01-22] MEDS: Norepinephrine Bit/D5W Premix 4 MG in Premix Bag 1 BAG IV SCH ×2 (11:02→20:00)
[2022-01-22] MEDS: LORazepam 1 MG Tab PO PRN ×2 (14:04→21:01)
[2022-01-22] MEDS ORDERED: Furosemide 20 MG/2 ML VIAL IVPUSH ONE (16:30)
[2022-01-22] MEDS ORDERED: Albumin Human 25 GM in Premix Bag 1 BAG IV ONE (19:00)
[2022-01-23] MEDS: Linezolid 600 MG in Premix Bag 1 BAG IV SCH ×2 (00:35→12:13)
[2022-01-23] MEDS: oxyCODONE 5 MG Tab PO PRN (01:10)
[2022-01-23] MEDS: LORazepam 1 MG Tab PO PRN (01:11)
[2022-01-23] MEDS: Piperacillin/Tazobactam/Dext 3.375 GM in Premix Bag 1 BAG IV SCH ×4 (02:50→19:30)
[2022-01-23] MEDS ORDERED: LORazepam 2 MG/ML SDV IVPUSH ONE (04:41)
[2022-01-23] MEDS ORDERED: LORazepam 2 MG/ML SDV ONE (04:43)
[2022-01-23 05:13] LABS: ESTIMATED GFR > 60 (>60)
[2022-01-23] MEDS ORDERED: Calcium Gluconate 2 GM in Sodium Chloride 0.9% 100 ML IV ONE (05:34)
[2022-01-23] MEDS ORDERED: Sodium Chloride 0.9% 500 ML IV ONE (05:35)
[2022-01-23] MEDS ORDERED: Calcium Gluconate 10% 1 GM/10 ML SDV ONE (05:37)
[2022-01-23] MEDS ORDERED: Sodium Chloride 0.9% 100 ML ONE (05:37)
[2022-01-23] MEDS: Albuterol 8 GM Inhaler INH SCH ×3 (07:16→18:18)
[2022-01-23] MEDS: Tiotropium Bromide 4 GM Inhalation Spray (2.5mcg/1 dose; 10 doses) INH SCH (07:16)
[2022-01-23] MEDS: HYDROmorphone 0.5 MG/0.5 ML Syringe IVPUSH PRN ×2 (07:31→12:44)
[2022-01-23] MEDS: Norepinephrine Bit/D5W Premix 4 MG in Premix Bag 1 BAG IV SCH ×3 (07:32→18:37)
[2022-01-23] MEDS: Albumin Human 25 GM in Premix Bag 1 BAG IV SCH (08:17)
[2022-01-23] MEDS: Nicotine 21 MG/24 Hr Patch TRDERM SCH (09:35)
[2022-01-23] MEDS: Pantoprazole 40 MG Tab.CR PO SCH ×2 (09:57→16:40)
[2022-01-23] MEDS: Bisacodyl 5 MG Tab PO SCH (09:57)
[2022-01-23] MEDS: Docusate Sodium 100 MG Cap PO SCH (09:57)
[2022-01-23] MEDS: Tamsulosin 0.4 MG Cap.ER PO SCH (09:57)
[2022-01-23] MEDS: Magnesium Oxide 400 MG Tab PO SCH (09:58)
[2022-01-23] MEDS: Calcium Carbonate 500 MG Tab.Chew PO SCH (09:58)
[2022-01-23] MEDS ORDERED: Meropenem 500 MG SDV ONE ×2 (10:35→15:27)
[2022-01-23] MEDS ORDERED: Propofol 200 MG/20 ML SDV ONE (11:35)
[2022-01-23] MEDS ORDERED: Midazolam 1 MG/ML 2 ML SDV ONE (11:35)
[2022-01-23] MEDS ORDERED: fentaNYL 100 MCG/2 ML SDV ONE ×2 (11:35→15:15)
[2022-01-23] MEDS ORDERED: Rocuronium 50 MG/5 ML Vial ONE ×3 (12:25→16:22)
[2022-01-23] MEDS ORDERED: Succinylcholine 200 MG/10 ML MDV ONE (12:25)
[2022-01-23] MEDS ORDERED: Phenylephrine 1% 10 MG/ML SDV ONE (15:18)
[2022-01-23] MEDS ORDERED: Sodium Chloride 0.9% 10 ML ONE (15:18)
[2022-01-23] MEDS ORDERED: Linezolid 600 MG/300 ML Premix Bag IRR ONE (15:19)
[2022-01-23] MEDS ORDERED: Sodium Chloride 0.9% 500 ML ONE ×2 (15:38)
[2022-01-23] MEDS: Heparin Sodium 5,000 UNITS in Sodium Chloride 0.9% 500 ML IV SCH ×3 (16:00→17:41)
[2022-01-23] MEDS ORDERED: Ondansetron 4 MG/2 ML SDV ONE (16:24)
[2022-01-23] MEDS ORDERED: LORazepam 1 MG Tab PO PRN (17:24)
[2022-01-23] MEDS: Tranexamic Acid 1,000 MG in Sodium Chloride 0.9% 50 ML IV ONE (17:34)
[2022-01-23] MEDS: Dextrose 5%-Lactated Ringers 1,000 ML IV SCH (17:41)
[2022-01-23] MEDS: Sodium Chloride 0.9% 1,000 ML IV SCH (17:42)
[2022-01-23] MEDS: HYDROmorphone/Normal Saline 6 MG/30 ML PCA Vial IV PRN (17:55)
[2022-01-23] MEDS ORDERED: Naloxone 0.4 MG/ML SDV IV PRN (18:00)
[2022-01-23] MEDS ORDERED: Lactated Ringers 500 ML IV SCH (18:15)
[2022-01-23] MEDS: Pantoprazole 40 MG Vial IV SCH (18:26)
[2022-01-23] MEDS: LORazepam 2 MG/ML SDV IV PRN (19:41)
[2022-01-23] MEDS: Albuterol/Ipratropium 3.0-0.5 MG/3 ML Neb Soln INH SCH (22:03)
[2022-01-23] MEDS ORDERED: Lactated Ringers 500 ML IV ONE (22:45)
[2022-01-24] MEDS: Norepinephrine Bit/D5W Premix 4 MG in Premix Bag 1 BAG IV SCH ×4 (00:14→14:00)
[2022-01-24] MEDS: LORazepam 2 MG/ML SDV IV PRN (00:20)
[2022-01-24] MEDS: Linezolid 600 MG in Premix Bag 1 BAG IV SCH ×2 (00:33→12:05)
[2022-01-24] MEDS: Piperacillin/Tazobactam/Dext 3.375 GM in Premix Bag 1 BAG IV SCH ×4 (02:28→20:36)
[2022-01-24] MEDS: propofoL 100 ML IV SCH ×3 (03:31→20:25)
[2022-01-24] MEDS: Dextrose 5%-Lactated Ringers 1,000 ML IV SCH ×3 (04:03→14:26)
[2022-01-24 04:43] LABS: ESTIMATED GFR > 60 (>60)
[2022-01-24] MEDS: Sodium Chloride 0.9% 1,000 ML IV SCH (05:20)
[2022-01-24] MEDS ORDERED: Calcium Gluconate 2 GM in Sodium Chloride 0.9% 100 ML IV ONE (05:58)
[2022-01-24] MEDS: Albuterol/Ipratropium 3.0-0.5 MG/3 ML Neb Soln INH SCH ×4 (07:08→21:42)
[2022-01-24] MEDS: Tiotropium Bromide 4 GM Inhalation Spray (2.5mcg/1 dose; 10 doses) INH SCH (07:08)
[2022-01-24] MEDS: Tranexamic Acid 1,000 MG in Sodium Chloride 0.9% 50 ML IV ONE (08:09)
[2022-01-24] MEDS: Magnesium Sulfate/Water 2 GM in Premix Bag 1 BAG IV SCH ×3 (08:50→21:30)
[2022-01-24] MEDS: Nicotine 21 MG/24 Hr Patch TRDERM SCH (09:21)
[2022-01-24] MEDS: Albumin Human 25 GM in Premix Bag 1 BAG IV SCH ×2 (09:30→14:20)
[2022-01-24] MEDS: 1: AA 5%/Calcium/D15W/Lytes 1,000 ML with MVI, Adult with Vitamin K 10 ML, Zinc/Copper/M IV SCH ×6 (11:30→21:34)
[2022-01-24] MEDS: Pantoprazole 40 MG Vial IV SCH (17:11)
[2022-01-25] MEDS: Sodium Chloride 0.9% 1,000 ML IV SCH (00:26)
[2022-01-25] MEDS: Dextrose 5%-Lactated Ringers 1,000 ML IV SCH (00:30)
[2022-01-25] MEDS: HYDROmorphone/Normal Saline 6 MG/30 ML PCA Vial IV PRN ×2 (00:55→17:33)
[2022-01-25] MEDS: Linezolid 600 MG in Premix Bag 1 BAG IV SCH ×2 (01:11→13:01)
[2022-01-25] MEDS: Norepinephrine Bit/D5W Premix 4 MG in Premix Bag 1 BAG IV SCH (02:23)
[2022-01-25] MEDS: propofoL 100 ML IV SCH (02:29)
[2022-01-25] MEDS: Piperacillin/Tazobactam/Dext 3.375 GM in Premix Bag 1 BAG IV SCH ×4 (02:33→19:40)
[2022-01-25] MEDS: Magnesium Sulfate/Water 2 GM in Premix Bag 1 BAG IV SCH ×4 (02:40→19:40)
[2022-01-25 05:06] LABS: ESTIMATED GFR > 60 (>60)
[2022-01-25] MEDS: Albuterol/Ipratropium 3.0-0.5 MG/3 ML Neb Soln INH SCH ×4 (07:16→20:56)
[2022-01-25] MEDS: 1: AA 5%/Calcium/D15W/Lytes 1,000 ML with MVI, Adult with Vitamin K 10 ML, Zinc/Copper/M IV SCH ×6 (07:35→18:08)
[2022-01-25] MEDS: Tiotropium Bromide 4 GM Inhalation Spray (2.5mcg/1 dose; 10 doses) INH SCH (07:51)
[2022-01-25] MEDS: Nicotine 21 MG/24 Hr Patch TRDERM SCH (08:09)
[2022-01-25] MEDS: Albumin Human 25 GM in Premix Bag 1 BAG IV SCH ×2 (08:43→13:06)
[2022-01-25] MEDS: Potassium Phosphates 15 MMOLE in Sodium Chloride 0.9% 100 ML IV SCH ×3 (09:30→14:12)
[2022-01-25] MEDS ORDERED: Furosemide 20 MG/2 ML VIAL IVPUSH ONE (10:00)
[2022-01-25] MEDS: metroNIDAZOLE/Normal Saline 500 MG in Premix Bag 1 BAG IV SCH ×2 (12:07→19:40)
[2022-01-25] MEDS: LORazepam 2 MG/ML SDV IV PRN ×2 (14:02→22:14)
[2022-01-25] MEDS: Pantoprazole 40 MG Vial IV SCH (19:05)
[2022-01-26] MEDS: Linezolid 600 MG in Premix Bag 1 BAG IV SCH ×2 (00:27→13:20)
[2022-01-26] MEDS: Magnesium Sulfate/Water 2 GM in Premix Bag 1 BAG IV SCH (01:42)
[2022-01-26] MEDS: Piperacillin/Tazobactam/Dext 3.375 GM in Premix Bag 1 BAG IV SCH ×4 (01:42→20:16)
[2022-01-26] MEDS: metroNIDAZOLE/Normal Saline 500 MG in Premix Bag 1 BAG IV SCH ×3 (03:05→20:09)
[2022-01-26] MEDS: LORazepam 2 MG/ML SDV IV PRN ×2 (03:13→21:58)
[2022-01-26] MEDS: 1: AA 5%/Calcium/D15W/Lytes 1,000 ML with MVI, Adult with Vitamin K 10 ML, Zinc/Copper/M IV SCH ×6 (04:36→14:50)
[2022-01-26 04:46] LABS: ESTIMATED GFR > 60 (>60)
[2022-01-26] MEDS ORDERED: Lidocaine 1% with EPINEPHrine 1:100,000 50 ML MDV ONE (06:44)
[2022-01-26] MEDS ORDERED: Meropenem 500 MG SDV ONE (06:44)
[2022-01-26] MEDS ORDERED: Bupivacaine 0.5% 50 ML MDV ONE (06:44)
[2022-01-26] MEDS: Albuterol/Ipratropium 3.0-0.5 MG/3 ML Neb Soln INH SCH ×4 (07:02→22:00)
[2022-01-26] MEDS: Tiotropium Bromide 4 GM Inhalation Spray (2.5mcg/1 dose; 10 doses) INH SCH (07:02)
[2022-01-26] MEDS ORDERED: Bupivacaine 0.5% 50 ML MDV INJECT ONE (08:12)
[2022-01-26] MEDS ORDERED: Meropenem 500 MG SDV IRR ONE (08:12)
[2022-01-26] MEDS ORDERED: Lidocaine 1% with EPINEPHrine 1:100,000 50 ML MDV INJECT ONE (08:12)
[2022-01-26] MEDS ORDERED: Linezolid 600 MG/300 ML Premix Bag IRR ONE (08:12)
[2022-01-26] MEDS ORDERED: Propofol 200 MG/20 ML SDV ONE (08:29)
[2022-01-26] MEDS ORDERED: Furosemide 20 MG/2 ML VIAL IVPUSH SCH (08:30)
[2022-01-26] MEDS ORDERED: Furosemide 20 MG/2 ML VIAL IVPUSH ONE ×3 (09:00→14:00)
[2022-01-26] MEDS: Albumin Human 25 GM in Premix Bag 1 BAG IV SCH ×2 (09:14→13:45)
[2022-01-26] MEDS: HYDROmorphone/Normal Saline 6 MG/30 ML PCA Vial IV PRN ×2 (09:32→20:50)
[2022-01-26] MEDS: Nicotine 21 MG/24 Hr Patch TRDERM SCH (09:42)
[2022-01-26] MEDS: Heparin Sodium 5,000 UNITS in Sodium Chloride 0.9% 500 ML IV SCH ×2 (15:09→17:19)
[2022-01-26] MEDS: Pantoprazole 40 MG Vial IV SCH (17:24)
[2022-01-26] MEDS: hydrOXYzine HCL 100 MG/2 ML SDV IM PRN (17:55)
[2022-01-27] MEDS: Linezolid 600 MG in Premix Bag 1 BAG IV SCH ×2 (00:31→11:29)
[2022-01-27] MEDS: 1: AA 5%/Calcium/D15W/Lytes 1,000 ML with MVI, Adult with Vitamin K 10 ML, Zinc/Copper/M IV SCH ×9 (00:34→21:12)
[2022-01-27] MEDS: Heparin Sodium 5,000 UNITS in Sodium Chloride 0.9% 500 ML IV SCH (01:35)
[2022-01-27] MEDS: Piperacillin/Tazobactam/Dext 3.375 GM in Premix Bag 1 BAG IV SCH ×4 (01:47→19:52)
[2022-01-27] MEDS: LORazepam 2 MG/ML SDV IV PRN ×2 (02:58→22:00)
[2022-01-27] MEDS: metroNIDAZOLE/Normal Saline 500 MG in Premix Bag 1 BAG IV SCH ×2 (02:59→10:39)
[2022-01-27 05:15] LABS: ESTIMATED GFR > 60 (>60)
[2022-01-27] MEDS ORDERED: Central Total Parenteral Nutrition Bag SCH (07:00)
[2022-01-27] MEDS: Tiotropium Bromide 4 GM Inhalation Spray (2.5mcg/1 dose; 10 doses) INH SCH (07:06)
[2022-01-27] MEDS: Albuterol/Ipratropium 3.0-0.5 MG/3 ML Neb Soln INH SCH ×4 (07:06→21:23)
[2022-01-27] MEDS ORDERED: Furosemide 20 MG/2 ML VIAL IVPUSH ONE ×2 (08:00→20:00)
[2022-01-27] MEDS: Albumin Human 25 GM in Premix Bag 1 BAG IV SCH ×2 (08:40→12:34)
[2022-01-27] MEDS: Nicotine 21 MG/24 Hr Patch TRDERM SCH (08:52)
[2022-01-27] MEDS: HYDROmorphone/Normal Saline 6 MG/30 ML PCA Vial IV PRN (14:20)
[2022-01-27] MEDS: Pantoprazole 40 MG Vial IV SCH (17:50)
[2022-01-28] MEDS: Linezolid 600 MG in Premix Bag 1 BAG IV SCH ×3 (00:15→23:38)
[2022-01-28] MEDS: Piperacillin/Tazobactam/Dext 3.375 GM in Premix Bag 1 BAG IV SCH ×4 (02:13→19:33)
[2022-01-28] MEDS: LORazepam 2 MG/ML SDV IV PRN (02:43)
[2022-01-28] MEDS: HYDROmorphone/Normal Saline 6 MG/30 ML PCA Vial IV PRN (03:32)
[2022-01-28 05:50] LABS: ESTIMATED GFR > 60 (>60)
[2022-01-28] MEDS ORDERED: Sodium Chloride 0.9% 500 ML IV ONE (05:54)
[2022-01-28] MEDS: Albuterol/Ipratropium 3.0-0.5 MG/3 ML Neb Soln INH SCH ×4 (07:07→21:08)
[2022-01-28] MEDS: Tiotropium Bromide 4 GM Inhalation Spray (2.5mcg/1 dose; 10 doses) INH SCH (07:07)
[2022-01-28] MEDS ORDERED: Furosemide 20 MG/2 ML VIAL IVPUSH ONE ×2 (07:15→10:00)
[2022-01-28] MEDS: 1: AA 5%/Calcium/D15W/Lytes 1,000 ML with MVI, Adult with Vitamin K 10 ML, Zinc/Copper/M IV SCH ×6 (07:24→17:41)
[2022-01-28] MEDS ORDERED: Central Total Parenteral Nutrition Bag SCH (07:30)
[2022-01-28] MEDS ORDERED: Furosemide 20 MG/2 ML VIAL ONE (07:55)
[2022-01-28] MEDS: Nicotine 21 MG/24 Hr Patch TRDERM SCH (08:03)
[2022-01-28] MEDS: oxyCODONE 5 MG Tab PO PRN ×3 (12:36→21:07)
[2022-01-29] MEDS: oxyCODONE 5 MG Tab PO PRN ×6 (01:09→23:34)
[2022-01-29] MEDS: Piperacillin/Tazobactam/Dext 3.375 GM in Premix Bag 1 BAG IV SCH ×4 (01:14→20:49)
[2022-01-29] MEDS: 1: AA 5%/Calcium/D15W/Lytes 1,000 ML with MVI, Adult with Vitamin K 10 ML, Zinc/Copper/M IV SCH ×6 (03:46→14:08)
[2022-01-29] MEDS: Albuterol/Ipratropium 3.0-0.5 MG/3 ML Neb Soln INH PRN (04:32)
[2022-01-29 04:52] LABS: ESTIMATED GFR > 60 (>60)
[2022-01-29] MEDS ORDERED: Central Total Parenteral Nutrition Bag SCH (07:00)
[2022-01-29] MEDS ORDERED: ALBUMIN HUMAN IV SCH (07:00)
[2022-01-29] MEDS: Albuterol/Ipratropium 3.0-0.5 MG/3 ML Neb Soln INH SCH ×4 (07:14→20:48)
[2022-01-29] MEDS: Tiotropium Bromide 4 GM Inhalation Spray (2.5mcg/1 dose; 10 doses) INH SCH (07:14)
[2022-01-29] MEDS: Sodium Chloride 0.9% 10 ML Syringe FLUSH PRN (08:35)
[2022-01-29] MEDS: Nicotine 21 MG/24 Hr Patch TRDERM SCH (08:37)
[2022-01-29] MEDS ORDERED: Calcium Gluconate 10% 1 GM/10 ML SDV IVPUSH ONE (09:00)
[2022-01-29] MEDS: Calcium Carbonate 500 MG Tab.Chew PO SCH ×2 (09:48→20:48)
[2022-01-29] MEDS ORDERED: Furosemide 20 MG/2 ML VIAL IVPUSH ONE ×2 (11:00→20:00)
[2022-01-29] MEDS: Linezolid 600 MG in Premix Bag 1 BAG IV SCH (13:07)
[2022-01-30] MEDS: 1: AA 5%/Calcium/D15W/Lytes 1,000 ML with MVI, Adult with Vitamin K 10 ML, Zinc/Copper/M IV SCH ×9 (00:02→23:31)
[2022-01-30] MEDS: Linezolid 600 MG in Premix Bag 1 BAG IV SCH ×2 (00:08→13:12)
[2022-01-30] MEDS: Piperacillin/Tazobactam/Dext 3.375 GM in Premix Bag 1 BAG IV SCH ×4 (02:38→19:34)
[2022-01-30] MEDS: oxyCODONE 5 MG Tab PO PRN ×4 (03:46→19:34)
[2022-01-30] MEDS: Albuterol/Ipratropium 3.0-0.5 MG/3 ML Neb Soln INH PRN (04:36)
[2022-01-30 05:33] LABS: ESTIMATED GFR > 60 (>60)
[2022-01-30] MEDS ORDERED: Central Total Parenteral Nutrition Bag SCH (07:00)
[2022-01-30] MEDS: Albuterol/Ipratropium 3.0-0.5 MG/3 ML Neb Soln INH SCH ×4 (07:17→20:47)
[2022-01-30] MEDS: Tiotropium Bromide 4 GM Inhalation Spray (2.5mcg/1 dose; 10 doses) INH SCH (07:18)
[2022-01-30] MEDS: Furosemide 20 MG/2 ML VIAL IVPUSH SCH ×2 (08:04→15:19)
[2022-01-30] MEDS: Nicotine 21 MG/24 Hr Patch TRDERM SCH (08:14)
[2022-01-30] MEDS: Calcium Carbonate 500 MG Tab.Chew PO SCH ×2 (08:14→20:48)
[2022-01-30] MEDS: Potassium Chloride 20 MEQ Tab.ER PO SCH ×3 (08:19→20:47)
[2022-01-31] MEDS: Linezolid 600 MG in Premix Bag 1 BAG IV SCH ×2 (00:25→11:32)
[2022-01-31] MEDS: oxyCODONE 5 MG Tab PO PRN ×5 (01:40→20:02)
[2022-01-31] MEDS: Piperacillin/Tazobactam/Dext 3.375 GM in Premix Bag 1 BAG IV SCH ×4 (01:40→20:01)
[2022-01-31 05:06] LABS: ESTIMATED GFR > 60 (>60)
[2022-01-31] MEDS: Tiotropium Bromide 4 GM Inhalation Spray (2.5mcg/1 dose; 10 doses) INH SCH (07:09)
[2022-01-31] MEDS: Albuterol/Ipratropium 3.0-0.5 MG/3 ML Neb Soln INH SCH ×4 (07:09→20:08)
[2022-01-31] MEDS: Furosemide 20 MG/2 ML VIAL IVPUSH SCH ×2 (07:28→14:24)
[2022-01-31] MEDS ORDERED: Central Total Parenteral Nutrition Bag SCH (08:00)
[2022-01-31] MEDS: Nicotine 21 MG/24 Hr Patch TRDERM SCH (08:28)
[2022-01-31] MEDS: Calcium Carbonate 500 MG Tab.Chew PO SCH ×3 (08:28→22:53)
[2022-01-31] MEDS ORDERED: Furosemide 20 MG/2 ML VIAL IVPUSH SCH (09:00)
[2022-01-31] MEDS: AA 5%/Calcium/D15W/Lytes 2,000 ML with MVI, Adult with Vitamin K 10 ML, Zinc/Copper/Man... IV SCH ×3 (11:48)
[2022-01-31] MEDS: hydrOXYzine HCL 100 MG/2 ML SDV IM PRN (13:40)
[2022-01-31] MEDS: Acetaminophen 325 MG Tab PO PRN ×2 (16:08→20:02)
[2022-02-01] MEDS: Linezolid 600 MG in Premix Bag 1 BAG IV SCH ×2 (00:31→12:06)
[2022-02-01] MEDS: Piperacillin/Tazobactam/Dext 3.375 GM in Premix Bag 1 BAG IV SCH ×4 (01:32→19:27)
[2022-02-01] MEDS: Albuterol/Ipratropium 3.0-0.5 MG/3 ML Neb Soln INH PRN ×2 (01:33→19:23)
[2022-02-01] MEDS: oxyCODONE 5 MG Tab PO PRN ×4 (02:27→21:48)
[2022-02-01] MEDS: Acetaminophen 325 MG Tab PO PRN ×3 (02:27→21:48)
[2022-02-01 05:09] LABS: ESTIMATED GFR > 60 (>60)
[2022-02-01] MEDS: Furosemide 20 MG/2 ML VIAL IVPUSH SCH ×2 (07:53→14:44)
[2022-02-01] MEDS: Albuterol/Ipratropium 3.0-0.5 MG/3 ML Neb Soln INH SCH ×4 (07:59→21:49)
[2022-02-01] MEDS: Tiotropium Bromide 4 GM Inhalation Spray (2.5mcg/1 dose; 10 doses) INH SCH (07:59)
[2022-02-01] MEDS ORDERED: Furosemide 20 MG/2 ML VIAL IV ONE ×2 (08:15→12:00)
[2022-02-01] MEDS: Calcium Carbonate 500 MG Tab.Chew PO SCH ×2 (08:50→21:50)
[2022-02-01] MEDS: Nicotine 21 MG/24 Hr Patch TRDERM SCH (08:53)
[2022-02-01] MEDS: AA 5%/Calcium/D15W/Lytes 2,000 ML with MVI, Adult with Vitamin K 10 ML, Zinc/Copper/Man... IV SCH ×3 (12:42)
[2022-02-02] MEDS: Linezolid 600 MG in Premix Bag 1 BAG IV SCH ×2 (00:24→12:13)
[2022-02-02] MEDS: Piperacillin/Tazobactam/Dext 3.375 GM in Premix Bag 1 BAG IV SCH (02:10)
[2022-02-02] MEDS: Acetaminophen 325 MG Tab PO PRN ×2 (02:15→23:05)
[2022-02-02] MEDS: oxyCODONE 5 MG Tab PO PRN ×5 (02:15→23:05)
[2022-02-02 05:03] LABS: ESTIMATED GFR > 60 (>60)
[2022-02-02] MEDS: Albuterol/Ipratropium 3.0-0.5 MG/3 ML Neb Soln INH SCH ×4 (07:19→21:08)
[2022-02-02] MEDS: Tiotropium Bromide 4 GM Inhalation Spray (2.5mcg/1 dose; 10 doses) INH SCH (07:19)
[2022-02-02] MEDS ORDERED: Furosemide 20 MG/2 ML VIAL IVPUSH ONE (08:00)
[2022-02-02] MEDS: Calcium Carbonate 500 MG Tab.Chew PO SCH ×2 (09:09→21:11)
[2022-02-02] MEDS: Nicotine 21 MG/24 Hr Patch TRDERM SCH (09:10)
[2022-02-02] MEDS: Potassium Chloride 20 MEQ Tab.ER PO SCH ×3 (09:10→16:16)
[2022-02-02] MEDS: Meropenem 500 MG in Sodium Chloride 0.9% 50 ML IV SCH ×3 (10:16→21:09)
[2022-02-02] MEDS: VITAMIN K IV SCH ×3 (13:20)
[2022-02-02] MEDS: CALCIUM IV SCH ×3 (13:20)
[2022-02-02] MEDS: [UNRECOGNIZED DRUG - OTHER] IV SCH ×3 (13:20)
[2022-02-02] MEDS: MVI IV SCH ×3 (13:20)
[2022-02-02] MEDS: LYTES IV SCH ×3 (13:20)
[2022-02-02] MEDS ORDERED: Sodium Chloride 0.9% 100 ML IV SCH (15:15)
[2022-02-02] MEDS ORDERED: Iopamidol 612 MG/ML 100 ML Bottle IV PRN (15:15)
[2022-02-03] MEDS: Linezolid 600 MG in Premix Bag 1 BAG IV SCH ×2 (00:31→11:30)
[2022-02-03] MEDS: oxyCODONE 5 MG Tab PO PRN ×5 (03:28→21:35)
[2022-02-03] MEDS: Meropenem 500 MG in Sodium Chloride 0.9% 50 ML IV SCH ×4 (03:31→21:10)
[2022-02-03 05:08] LABS: ESTIMATED GFR > 60 (>60)
[2022-02-03] MEDS: Albuterol/Ipratropium 3.0-0.5 MG/3 ML Neb Soln INH SCH ×4 (07:13→21:10)
[2022-02-03] MEDS ORDERED: Central Total Parenteral Nutrition Bag SCH (07:15)
[2022-02-03] MEDS: Tiotropium Bromide 4 GM Inhalation Spray (2.5mcg/1 dose; 10 doses) INH SCH (07:20)
[2022-02-03] MEDS ORDERED: Furosemide 20 MG/2 ML VIAL IVPUSH ONE (09:00)
[2022-02-03] MEDS: Calcium Carbonate 500 MG Tab.Chew PO SCH ×2 (09:37→21:10)
[2022-02-03] MEDS: Potassium Chloride 20 MEQ Tab.ER PO SCH (09:37)
[2022-02-03] MEDS: Docusate Sodium 100 MG Cap PO SCH ×2 (09:37→21:10)
[2022-02-03] MEDS: Lactobacillus Rhamnosus GG (Probiotic) Cap PO SCH ×2 (09:37→21:10)
[2022-02-03] MEDS: Nicotine 21 MG/24 Hr Patch TRDERM SCH (09:37)
[2022-02-03] MEDS: hydrOXYzine HCL 100 MG/2 ML SDV IM PRN (11:22)
[2022-02-03] MEDS: Acetaminophen 325 MG Tab PO PRN (15:33)
[2022-02-03] MEDS: CALCIUM IV SCH ×3 (15:34)
[2022-02-03] MEDS: VITAMIN K IV SCH ×3 (15:34)
[2022-02-03] MEDS: [UNRECOGNIZED DRUG - OTHER] IV SCH ×3 (15:34)
[2022-02-03] MEDS: LYTES IV SCH ×3 (15:34)
[2022-02-03] MEDS: MVI IV SCH ×3 (15:34)
[2022-02-04] MEDS: Linezolid 600 MG in Premix Bag 1 BAG IV SCH (00:42)
[2022-02-04] MEDS: Meropenem 500 MG in Sodium Chloride 0.9% 50 ML IV SCH ×4 (02:47→20:29)
[2022-02-04] MEDS: oxyCODONE 5 MG Tab PO PRN ×2 (02:48→08:57)
[2022-02-04 04:16] LABS: ESTIMATED GFR > 60 (>60)
[2022-02-04] MEDS ORDERED: Central Total Parenteral Nutrition Bag SCH (07:15)
[2022-02-04] MEDS: Albuterol/Ipratropium 3.0-0.5 MG/3 ML Neb Soln INH SCH ×4 (07:48→20:29)
[2022-02-04] MEDS: Tiotropium Bromide 4 GM Inhalation Spray (2.5mcg/1 dose; 10 doses) INH SCH (07:50)
[2022-02-04] MEDS: Furosemide 20 MG/2 ML VIAL IVPUSH SCH (08:59)
[2022-02-04] MEDS: Potassium Chloride 20 MEQ Tab.ER PO SCH (08:59)
[2022-02-04] MEDS: Lactobacillus Rhamnosus GG (Probiotic) Cap PO SCH ×2 (08:59→20:31)
[2022-02-04] MEDS: Docusate Sodium 100 MG Cap PO SCH ×2 (08:59→20:31)
[2022-02-04] MEDS: Nicotine 21 MG/24 Hr Patch TRDERM SCH (08:59)
[2022-02-04] MEDS: Calcium Carbonate 500 MG Tab.Chew PO SCH ×2 (09:00→20:30)
[2022-02-04] MEDS ORDERED: Glycopyrrolate 0.2 MG/ML 5 ML MDV ONE (09:19)
[2022-02-04] MEDS ORDERED: Ondansetron 4 MG/2 ML SDV ONE (09:19)
[2022-02-04] MEDS ORDERED: Succinylcholine 200 MG/10 ML MDV ONE (09:19)
[2022-02-04] MEDS ORDERED: Neostigmine Methylsulfate 1 MG/ML 5 ML Syringe ONE (09:19)
[2022-02-04] MEDS ORDERED: Dexamethasone 4 MG/ML SDV ONE (09:19)
[2022-02-04] MEDS ORDERED: Propofol 200 MG/20 ML SDV ONE (09:19)
[2022-02-04] MEDS ORDERED: fentaNYL 250 MCG/5 ML SDV ONE (09:19)
[2022-02-04] MEDS ORDERED: Rocuronium 50 MG/5 ML Vial ONE (09:19)
[2022-02-04] MEDS ORDERED: Meropenem 500 MG SDV ONE (09:28)
[2022-02-04] MEDS ORDERED: Bupivacaine 0.5%/EPINEPHrine 1:200,000 50 ML MDV ONE (09:28)
[2022-02-04] MEDS ORDERED: Linezolid 600 MG/300 ML Premix Bag IRR ONE (10:40)
[2022-02-04] MEDS ORDERED: Bupivacaine 0.5%/EPINEPHrine 1:200,000 50 ML MDV INJECT ONE (10:41)
[2022-02-04] MEDS ORDERED: diphenhydrAMINE 25 MG Cap PO PRN (10:46)
[2022-02-04] MEDS ORDERED: Naloxone 0.4 MG/ML SDV IVPUSH PRN (10:46)
[2022-02-04] MEDS ORDERED: Ondansetron 4 MG/2 ML SDV IVPUSH PRN (10:46)
[2022-02-04] MEDS ORDERED: diphenhydrAMINE 50 MG/ML SDV IVPUSH PRN (10:46)
[2022-02-04] MEDS: HYDROmorphone/Normal Saline 6 MG/30 ML PCA Vial IV PRN ×2 (11:00→22:49)
[2022-02-04 11:24] LABS: HBSAG SCREEN Negative (Negative)
[2022-02-04] MEDS ORDERED: Bupivacaine 0.5% 50 ML MDV ONE (11:26)
[2022-02-04] MEDS ORDERED: Lidocaine 1% with EPINEPHrine 1:100,000 50 ML MDV ONE (11:26)
[2022-02-04] MEDS: Ciprofloxacin in D5W 400 MG in Premix Bag 1 BAG IV SCH ×2 (14:05)
[2022-02-04] MEDS: AA 5%/Calcium/D15W/Lytes 2,000 ML with MVI, Adult with Vitamin K 10 ML, Zinc/Copper/Man... IV SCH ×3 (15:40)
[2022-02-04] MEDS: CALCIUM IV SCH ×3 (15:42)
[2022-02-04] MEDS: VITAMIN K IV SCH ×3 (15:42)
[2022-02-04] MEDS: MVI IV SCH ×3 (15:42)
[2022-02-04] MEDS: [UNRECOGNIZED DRUG - OTHER] IV SCH ×3 (15:42)
[2022-02-04] MEDS: LYTES IV SCH ×3 (15:42)
[2022-02-04] MEDS: Albuterol/Ipratropium 3.0-0.5 MG/3 ML Neb Soln INH PRN (17:28)
[2022-02-05] MEDS: Ciprofloxacin in D5W 400 MG in Premix Bag 1 BAG IV SCH ×4 (02:20→14:45)
[2022-02-05] MEDS: Meropenem 500 MG in Sodium Chloride 0.9% 50 ML IV SCH ×4 (03:49→20:56)
[2022-02-05] MEDS ORDERED: Sodium Chloride 0.9% 10 ML Syringe FLUSH ONE (05:03)
[2022-02-05 05:15] LABS: ESTIMATED GFR > 60 (>60)
[2022-02-05] MEDS ORDERED: Sodium Chloride 0.9% 50 ML IV SCH (05:15)
[2022-02-05] MEDS ORDERED: Iopamidol 612 MG/ML 100 ML Bottle IV SCH (05:15)
[2022-02-05] MEDS ORDERED: Furosemide 40 MG/4 ML VIAL IVPUSH ONE (06:53)
[2022-02-05] MEDS: Albuterol/Ipratropium 3.0-0.5 MG/3 ML Neb Soln INH SCH ×4 (07:11→20:55)
[2022-02-05] MEDS: Tiotropium Bromide 4 GM Inhalation Spray (2.5mcg/1 dose; 10 doses) INH SCH (07:14)
[2022-02-05] MEDS ORDERED: Central Total Parenteral Nutrition Bag SCH (07:30)
[2022-02-05] MEDS ORDERED: Furosemide 20 MG/2 ML VIAL IVPUSH ONE ×2 (09:00→15:00)
[2022-02-05] MEDS: Albumin Human 25 GM in Premix Bag 1 BAG IV SCH (09:25)
[2022-02-05] MEDS: Docusate Sodium 100 MG Cap PO SCH ×2 (09:35→20:56)
[2022-02-05] MEDS: Furosemide 20 MG/2 ML VIAL IVPUSH SCH (09:35)
[2022-02-05] MEDS: Lactobacillus Rhamnosus GG (Probiotic) Cap PO SCH ×2 (09:36→20:55)
[2022-02-05] MEDS: Calcium Carbonate 500 MG Tab.Chew PO SCH ×2 (09:36→20:55)
[2022-02-05] MEDS: Nicotine 21 MG/24 Hr Patch TRDERM SCH (09:36)
[2022-02-05] MEDS: Sodium Chloride 0.9% 10 ML Syringe FLUSH PRN (09:39)
[2022-02-05] MEDS: HYDROmorphone/Normal Saline 6 MG/30 ML PCA Vial IV PRN ×2 (11:18→21:33)
[2022-02-05] MEDS: AA 5%/Calcium/D15W/Lytes 2,000 ML with MVI, Adult with Vitamin K 10 ML, Zinc/Copper/Man... IV SCH ×3 (15:45)
[2022-02-05] MEDS: oxyCODONE 5 MG Tab PO PRN (16:15)
[2022-02-05] MEDS: hydrOXYzine HCL 100 MG/2 ML SDV IM PRN (20:59)
[2022-02-06] MEDS: Ciprofloxacin in D5W 400 MG in Premix Bag 1 BAG IV SCH ×4 (01:29→13:36)
[2022-02-06] MEDS: Meropenem 500 MG in Sodium Chloride 0.9% 50 ML IV SCH ×4 (03:08→20:02)
[2022-02-06 04:58] LABS: ESTIMATED GFR > 60 (>60)
[2022-02-06] MEDS ORDERED: Bupivacaine 0.5% 50 ML MDV ONE (06:49)
[2022-02-06] MEDS ORDERED: Meropenem 500 MG SDV ONE (06:49)
[2022-02-06] MEDS ORDERED: Lidocaine 1% with EPINEPHrine 1:100,000 50 ML MDV ONE (06:49)
[2022-02-06] MEDS ORDERED: Propofol 200 MG/20 ML SDV ONE ×2 (07:19→07:45)
[2022-02-06] MEDS: Tiotropium Bromide 4 GM Inhalation Spray (2.5mcg/1 dose; 10 doses) INH SCH (08:58)
[2022-02-06] MEDS: Albuterol/Ipratropium 3.0-0.5 MG/3 ML Neb Soln INH SCH ×4 (08:58→20:01)
[2022-02-06] MEDS ORDERED: HYDROmorphone 2 MG Tab PO PRN (09:38)
[2022-02-06] MEDS: Albumin Human 25 GM in Premix Bag 1 BAG IV SCH (10:39)
[2022-02-06] MEDS: Docusate Sodium 100 MG Cap PO SCH ×2 (10:40→20:00)
[2022-02-06] MEDS: Lactobacillus Rhamnosus GG (Probiotic) Cap PO SCH ×2 (10:40→20:00)
[2022-02-06] MEDS: Calcium Carbonate 500 MG Tab.Chew PO SCH ×2 (10:41→20:01)
[2022-02-06] MEDS: Nicotine 21 MG/24 Hr Patch TRDERM SCH (10:41)
[2022-02-06] MEDS: Furosemide 20 MG/2 ML VIAL IVPUSH SCH (10:42)
[2022-02-06] MEDS ORDERED: AA 5%/Calcium/D15W/Lytes 2,000 ML with MVI, Adult with Vitamin K 10 ML, Zinc/Copper/Man... IV SCH ×3 (11:00)
[2022-02-06] MEDS ORDERED: Furosemide 20 MG/2 ML VIAL IV ONE (12:00)
[2022-02-06] MEDS: oxyCODONE 5 MG Tab PO PRN ×3 (13:58→22:02)
[2022-02-06] MEDS: Divalproex Sodium Delayed-Release 250 MG Tab.CR PO SCH (16:07)
[2022-02-06] MEDS: Albuterol/Ipratropium 3.0-0.5 MG/3 ML Neb Soln INH PRN (19:19)
[2022-02-07] MEDS: Ciprofloxacin in D5W 400 MG in Premix Bag 1 BAG IV SCH ×4 (02:07→13:56)
[2022-02-07] MEDS: oxyCODONE 5 MG Tab PO PRN ×5 (02:08→20:10)
[2022-02-07] MEDS: Meropenem 500 MG in Sodium Chloride 0.9% 50 ML IV SCH ×4 (04:01→20:09)
[2022-02-07 05:08] LABS: ESTIMATED GFR > 60 (>60)
[2022-02-07] MEDS ORDERED: Central Total Parenteral Nutrition Bag SCH (07:15)
[2022-02-07] MEDS: Tiotropium Bromide 4 GM Inhalation Spray (2.5mcg/1 dose; 10 doses) INH SCH (07:17)
[2022-02-07] MEDS: Albuterol/Ipratropium 3.0-0.5 MG/3 ML Neb Soln INH SCH ×4 (07:17→20:09)
[2022-02-07] MEDS: Albumin Human 25 GM in Premix Bag 1 BAG IV SCH (08:09)
[2022-02-07] MEDS: Docusate Sodium 100 MG Cap PO SCH ×2 (08:14→20:09)
[2022-02-07] MEDS: Divalproex Sodium Delayed-Release 250 MG Tab.CR PO SCH ×2 (08:15→16:23)
[2022-02-07] MEDS: Nicotine 21 MG/24 Hr Patch TRDERM SCH (08:15)
[2022-02-07] MEDS: Furosemide 20 MG/2 ML VIAL IVPUSH SCH (08:15)
[2022-02-07] MEDS: Calcium Carbonate 500 MG Tab.Chew PO SCH ×2 (08:16→20:15)
[2022-02-07] MEDS: CALCIUM IV SCH ×3 (11:41)
[2022-02-07] MEDS: [UNRECOGNIZED DRUG - OTHER] IV SCH ×3 (11:41)
[2022-02-07] MEDS: VITAMIN K IV SCH ×3 (11:41)
[2022-02-07] MEDS: MVI IV SCH ×3 (11:41)
[2022-02-07] MEDS: LYTES IV SCH ×3 (11:41)
[2022-02-07] MEDS: Lactobacillus Rhamnosus GG (Probiotic) Cap PO SCH ×2 (11:42→20:09)
[2022-02-08] MEDS: oxyCODONE 5 MG Tab PO PRN ×6 (00:23→20:41)
[2022-02-08] MEDS: Ciprofloxacin in D5W 400 MG in Premix Bag 1 BAG IV SCH ×4 (02:22→14:37)
[2022-02-08] MEDS: Meropenem 500 MG in Sodium Chloride 0.9% 50 ML IV SCH ×4 (03:42→20:42)
[2022-02-08 05:08] LABS: ESTIMATED GFR > 60 (>60)
[2022-02-08] MEDS: Albuterol/Ipratropium 3.0-0.5 MG/3 ML Neb Soln INH SCH ×4 (07:23→20:42)
[2022-02-08] MEDS: Tiotropium Bromide 4 GM Inhalation Spray (2.5mcg/1 dose; 10 doses) INH SCH (07:23)
[2022-02-08] MEDS: Albumin Human 25 GM in Premix Bag 1 BAG IV SCH (08:42)
[2022-02-08] MEDS: Nicotine 21 MG/24 Hr Patch TRDERM SCH (08:43)
[2022-02-08] MEDS: Docusate Sodium 100 MG Cap PO SCH ×2 (08:43→20:42)
[2022-02-08] MEDS: Lactobacillus Rhamnosus GG (Probiotic) Cap PO SCH ×2 (08:43→20:42)
[2022-02-08] MEDS: Furosemide 20 MG/2 ML VIAL IVPUSH SCH (08:44)
[2022-02-08] MEDS: Divalproex Sodium Delayed-Release 250 MG Tab.CR PO SCH ×2 (08:47→18:02)
[2022-02-08] MEDS: Calcium Carbonate 500 MG Tab.Chew PO SCH ×2 (08:48→20:42)
[2022-02-08] MEDS: VITAMIN K IV SCH ×3 (12:06)
[2022-02-08] MEDS: MVI IV SCH ×3 (12:06)
[2022-02-08] MEDS: LYTES IV SCH ×3 (12:06)
[2022-02-08] MEDS: [UNRECOGNIZED DRUG - OTHER] IV SCH ×3 (12:06)
[2022-02-08] MEDS: CALCIUM IV SCH ×3 (12:06)
[2022-02-08] MEDS ORDERED: Furosemide 20 MG/2 ML VIAL IVPUSH ONE (12:30)
[2022-02-09] MEDS: oxyCODONE 5 MG Tab PO PRN ×5 (00:45→20:04)
[2022-02-09] MEDS: Ciprofloxacin in D5W 400 MG in Premix Bag 1 BAG IV SCH ×4 (01:59→15:04)
[2022-02-09] MEDS: Meropenem 500 MG in Sodium Chloride 0.9% 50 ML IV SCH ×4 (03:37→20:02)
[2022-02-09 06:13] LABS: ESTIMATED GFR > 60 (>60)
[2022-02-09] MEDS: Divalproex Sodium Delayed-Release 250 MG Tab.CR PO SCH ×2 (07:20→17:10)
[2022-02-09] MEDS: Tiotropium Bromide 4 GM Inhalation Spray (2.5mcg/1 dose; 10 doses) INH SCH (07:46)
[2022-02-09] MEDS: Albuterol/Ipratropium 3.0-0.5 MG/3 ML Neb Soln INH SCH ×4 (07:46→20:11)
[2022-02-09] MEDS: Lactobacillus Rhamnosus GG (Probiotic) Cap PO SCH ×2 (09:26→20:02)
[2022-02-09] MEDS: Docusate Sodium 100 MG Cap PO SCH ×2 (09:26→20:01)
[2022-02-09] MEDS: Nicotine 21 MG/24 Hr Patch TRDERM SCH (09:26)
[2022-02-09] MEDS: Calcium Carbonate 500 MG Tab.Chew PO SCH (09:26)
[2022-02-09] MEDS: Furosemide 20 MG/2 ML VIAL IVPUSH SCH (09:26)
[2022-02-09] MEDS: MVI IV SCH ×3 (11:31)
[2022-02-09] MEDS: LYTES IV SCH ×3 (11:31)
[2022-02-09] MEDS: VITAMIN K IV SCH ×3 (11:31)
[2022-02-09] MEDS: [UNRECOGNIZED DRUG - OTHER] IV SCH ×3 (11:31)
[2022-02-09] MEDS: CALCIUM IV SCH ×3 (11:31)
[2022-02-09] MEDS: Bisacodyl 5 MG Tab PO PRN (11:42)
[2022-02-09] MEDS: Haloperidol 1 MG Tab PO PRN (20:00)
[2022-02-09] MEDS: Acetaminophen 325 MG Tab PO PRN (20:10)
[2022-02-09] MEDS: Melatonin 3 MG Tab PO PRN (20:10)
[2022-02-10] MEDS: Haloperidol 1 MG Tab PO PRN ×2 (00:28→11:09)
[2022-02-10] MEDS: oxyCODONE 5 MG Tab PO PRN ×5 (00:28→23:07)
[2022-02-10] MEDS: Calcium Carbonate 500 MG Tab.Chew PO SCH ×3 (00:34→21:17)
[2022-02-10] MEDS: Ciprofloxacin in D5W 400 MG in Premix Bag 1 BAG IV SCH ×4 (02:58→14:17)
[2022-02-10] MEDS: Meropenem 500 MG in Sodium Chloride 0.9% 50 ML IV SCH ×4 (03:41→20:41)
[2022-02-10 05:33] LABS: ESTIMATED GFR > 60 (>60)
[2022-02-10] MEDS: Tiotropium Bromide 4 GM Inhalation Spray (2.5mcg/1 dose; 10 doses) INH SCH (07:13)
[2022-02-10] MEDS: Albuterol/Ipratropium 3.0-0.5 MG/3 ML Neb Soln INH SCH ×4 (07:13→20:40)
[2022-02-10] MEDS ORDERED: Polyethylene Glycol 3350 Powder 119 GM Bottle PO ONE (09:00)
[2022-02-10] MEDS ORDERED: Cyanocobalamin (Vitamin B12) 1,000 MCG/ML SDV IM ONE (09:00)
[2022-02-10] MEDS: Furosemide 20 MG/2 ML VIAL IVPUSH SCH (09:45)
[2022-02-10] MEDS: Lactobacillus Rhamnosus GG (Probiotic) Cap PO SCH ×2 (10:10→21:17)
[2022-02-10] MEDS: Nicotine 21 MG/24 Hr Patch TRDERM SCH (10:11)
[2022-02-10] MEDS: Divalproex Sodium Delayed-Release 250 MG Tab.CR PO SCH ×2 (10:12→18:36)
[2022-02-10] MEDS: Docusate Sodium 100 MG Cap PO SCH ×2 (10:12→21:17)
[2022-02-10] MEDS: LYTES IV SCH ×3 (12:05)
[2022-02-10] MEDS: [UNRECOGNIZED DRUG - OTHER] IV SCH ×3 (12:05)
[2022-02-10] MEDS: VITAMIN K IV SCH ×3 (12:05)
[2022-02-10] MEDS: CALCIUM IV SCH ×3 (12:05)
[2022-02-10] MEDS: MVI IV SCH ×3 (12:05)
[2022-02-10] MEDS: Acetaminophen 325 MG Tab PO PRN (14:35)
[2022-02-10] MEDS: hydrOXYzine HCL 100 MG/2 ML SDV IM PRN (18:33)
[2022-02-10] MEDS ORDERED: Acetaminophen 1,000 MG in Premix Bag 1 BAG IV ONE (21:07)
[2022-02-11] MEDS: Ciprofloxacin in D5W 400 MG in Premix Bag 1 BAG IV SCH ×4 (02:10→15:04)
[2022-02-11] MEDS: Meropenem 500 MG in Sodium Chloride 0.9% 50 ML IV SCH ×4 (03:27→20:18)
[2022-02-11] MEDS: Acetaminophen 325 MG Tab PO PRN ×3 (03:32→18:15)
[2022-02-11] MEDS: oxyCODONE 5 MG Tab PO PRN ×4 (05:07→19:27)
[2022-02-11 06:13] LABS: ESTIMATED GFR > 60 (>60)
[2022-02-11] MEDS ORDERED: Central Total Parenteral Nutrition Bag SCH (06:45)
[2022-02-11] MEDS: Tiotropium Bromide 4 GM Inhalation Spray (2.5mcg/1 dose; 10 doses) INH SCH (07:05)
[2022-02-11] MEDS: Albuterol/Ipratropium 3.0-0.5 MG/3 ML Neb Soln INH SCH ×4 (07:05→20:21)
[2022-02-11] MEDS: Calcium Carbonate 500 MG Tab.Chew PO SCH ×2 (09:03→20:17)
[2022-02-11] MEDS: Lactobacillus Rhamnosus GG (Probiotic) Cap PO SCH ×2 (09:03→20:16)
[2022-02-11] MEDS: Nicotine 21 MG/24 Hr Patch TRDERM SCH (09:04)
[2022-02-11] MEDS: Divalproex Sodium Delayed-Release 250 MG Tab.CR PO SCH ×2 (09:04→16:56)
[2022-02-11] MEDS: Docusate Sodium 100 MG Cap PO SCH ×2 (09:04→20:16)
[2022-02-11] MEDS: Furosemide 20 MG/2 ML VIAL IVPUSH SCH (09:05)
[2022-02-11] MEDS: CALCIUM IV SCH ×3 (12:45)
[2022-02-11] MEDS: VITAMIN K IV SCH ×3 (12:45)
[2022-02-11] MEDS: [UNRECOGNIZED DRUG - OTHER] IV SCH ×3 (12:45)
[2022-02-11] MEDS: LYTES IV SCH ×3 (12:45)
[2022-02-11] MEDS: MVI IV SCH ×3 (12:45)
[2022-02-11] MEDS: Haloperidol 1 MG Tab PO PRN (22:20)
[2022-02-11] MEDS: Melatonin 3 MG Tab PO PRN (22:38)
[2022-02-12] MEDS: Acetaminophen 325 MG Tab PO PRN ×2 (00:08→18:13)
[2022-02-12] MEDS: Haloperidol 1 MG Tab PO PRN ×2 (00:09→20:49)
[2022-02-12] MEDS: oxyCODONE 5 MG Tab PO PRN ×4 (00:56→19:32)
[2022-02-12] MEDS: Ciprofloxacin in D5W 400 MG in Premix Bag 1 BAG IV SCH ×4 (01:34→14:06)
[2022-02-12] MEDS ORDERED: Fluconazole/Normal Saline 200 MG in Premix Bag 1 BAG IV ONE ×2 (02:00→08:00)
[2022-02-12] MEDS: hydrOXYzine HCL 100 MG/2 ML SDV IM PRN (03:31)
[2022-02-12] MEDS: Meropenem 500 MG in Sodium Chloride 0.9% 50 ML IV SCH ×4 (03:34→20:47)
[2022-02-12 04:42] LABS: ESTIMATED GFR > 60 (>60)
[2022-02-12] MEDS: Albuterol/Ipratropium 3.0-0.5 MG/3 ML Neb Soln INH SCH ×4 (07:08→20:48)
[2022-02-12] MEDS: Tiotropium Bromide 4 GM Inhalation Spray (2.5mcg/1 dose; 10 doses) INH SCH (07:08)
[2022-02-12] MEDS ORDERED: Central Total Parenteral Nutrition Bag SCH (07:15)
[2022-02-12] MEDS ORDERED: Potassium Chloride 10% 20 MEQ/15 ML Soln 15 ML UD Cup PO ONE (08:00)
[2022-02-12] MEDS ORDERED: Iopamidol 612 MG/ML 30 ML SDV PO ONE (08:00)
[2022-02-12] MEDS ORDERED: Iopamidol 612 MG/ML 100 ML Bottle IV PRN (08:00)
[2022-02-12] MEDS ORDERED: Sodium Chloride 0.9% 100 ML IV SCH (08:00)
[2022-02-12] MEDS: Docusate Sodium 100 MG Cap PO SCH ×2 (08:46→20:48)
[2022-02-12] MEDS: Lactobacillus Rhamnosus GG (Probiotic) Cap PO SCH ×2 (08:46→20:48)
[2022-02-12] MEDS: Calcium Carbonate 500 MG Tab.Chew PO SCH ×2 (08:47→20:48)
[2022-02-12] MEDS: Divalproex Sodium Delayed-Release 250 MG Tab.CR PO SCH ×2 (08:47→16:28)
[2022-02-12] MEDS: Nicotine 21 MG/24 Hr Patch TRDERM SCH (08:47)
[2022-02-12] MEDS: Furosemide 20 MG/2 ML VIAL IVPUSH SCH (08:47)
[2022-02-12] MEDS: Bisacodyl 5 MG Tab PO PRN (12:31)
[2022-02-12] MEDS: CALCIUM IV SCH ×3 (12:33)
[2022-02-12] MEDS: LYTES IV SCH ×3 (12:33)
[2022-02-12] MEDS: VITAMIN K IV SCH ×3 (12:33)
[2022-02-12] MEDS: [UNRECOGNIZED DRUG - OTHER] IV SCH ×3 (12:33)
[2022-02-12] MEDS: MVI IV SCH ×3 (12:33)
[2022-02-12] MEDS: Melatonin 3 MG Tab PO PRN (20:49)
[2022-02-12] MEDS: Fluconazole/Normal Saline 400 MG in Premix Bag 1 BAG IV SCH (21:32)
[2022-02-13] MEDS: Ciprofloxacin in D5W 400 MG in Premix Bag 1 BAG IV SCH ×4 (01:42→16:18)
[2022-02-13] MEDS: Meropenem 500 MG in Sodium Chloride 0.9% 50 ML IV SCH ×4 (02:50→20:47)
[2022-02-13] MEDS: Acetaminophen 325 MG Tab PO PRN (02:50)
[2022-02-13] MEDS: oxyCODONE 5 MG Tab PO PRN (02:56)
[2022-02-13] MEDS: Bisacodyl 5 MG Tab PO PRN (02:57)
[2022-02-13] MEDS: Albuterol/Ipratropium 3.0-0.5 MG/3 ML Neb Soln INH PRN (03:14)
[2022-02-13 05:00] LABS: ESTIMATED GFR > 60 (>60)
[2022-02-13] MEDS ORDERED: Potassium Chloride 20 MEQ in Premix Bag 1 BAG IV ONE (06:49)
[2022-02-13] MEDS: Albuterol/Ipratropium 3.0-0.5 MG/3 ML Neb Soln INH SCH ×4 (07:00→20:54)
[2022-02-13] MEDS ORDERED: Central Total Parenteral Nutrition Bag SCH ×2 (07:00→07:15)
[2022-02-13] MEDS: Tiotropium Bromide 4 GM Inhalation Spray (2.5mcg/1 dose; 10 doses) INH SCH (07:00)
[2022-02-13] MEDS ORDERED: Ketamine 500 MG/5 ML MDV IV SCH ×3 (07:00→11:00)
[2022-02-13] MEDS ORDERED: Glycopyrrolate 0.2 MG/ML 5 ML MDV ONE (07:54)
[2022-02-13] MEDS ORDERED: Ondansetron 4 MG/2 ML SDV ONE (07:54)
[2022-02-13] MEDS ORDERED: Succinylcholine 200 MG/10 ML MDV ONE (07:54)
[2022-02-13] MEDS ORDERED: Neostigmine Methylsulfate 1 MG/ML 5 ML Syringe ONE (07:54)
[2022-02-13] MEDS ORDERED: Rocuronium 50 MG/5 ML Vial ONE (07:54)
[2022-02-13] MEDS ORDERED: Dexamethasone 4 MG/ML SDV ONE (07:54)
[2022-02-13] MEDS ORDERED: fentaNYL 250 MCG/5 ML SDV ONE (07:54)
[2022-02-13] MEDS ORDERED: Propofol 200 MG/20 ML SDV ONE (07:54)
[2022-02-13] MEDS: Docusate Sodium 100 MG Cap PO SCH ×2 (09:38→20:46)
[2022-02-13] MEDS: Divalproex Sodium Delayed-Release 250 MG Tab.CR PO SCH ×2 (09:38→17:43)
[2022-02-13] MEDS: Lactobacillus Rhamnosus GG (Probiotic) Cap PO SCH ×2 (09:38→20:46)
[2022-02-13] MEDS: Calcium Carbonate 500 MG Tab.Chew PO SCH ×2 (09:39→20:47)
[2022-02-13] MEDS: hydrOXYzine HCL 100 MG/2 ML SDV IM PRN (10:31)
[2022-02-13] MEDS: Furosemide 20 MG/2 ML VIAL IVPUSH SCH (10:41)
[2022-02-13] MEDS: Nicotine 21 MG/24 Hr Patch TRDERM SCH (10:49)
[2022-02-13] MEDS ORDERED: AA 5%/Calcium/D15W/Lytes 2,000 ML with MVI, Adult with Vitamin K 10 ML, Zinc/Copper/Man... IV SCH ×3 (11:00)
[2022-02-13] MEDS ORDERED: Ketamine 20 MG in Sodium Chloride 0.9% 19.8 ML IV SCH (11:00)
[2022-02-13] MEDS ORDERED: Ropivacaine 35 ML, dexAMETHasone 8 MG, EPINEPHrine 0.4 MG, Sodium Chloride 0.9% 42.6 ML NERVRT SCH ×4 (11:00)
[2022-02-13] MEDS ORDERED: Meropenem 500 MG SDV ONE (11:42)
[2022-02-13] MEDS ORDERED: Lactated Ringers 1,000 ML ONE (12:33)
[2022-02-13] MEDS ORDERED: Bupivacaine 0.5%/EPINEPHrine 1:200,000 50 ML MDV ONE (12:35)
[2022-02-13] MEDS ORDERED: Meropenem 500 MG SDV IRR ONE (12:46)
[2022-02-13] MEDS ORDERED: Linezolid 600 MG/300 ML Premix Bag IRR ONE (12:46)
[2022-02-13] MEDS ORDERED: Ondansetron 4 MG/2 ML SDV IVPUSH PRN (13:31)
[2022-02-13] MEDS ORDERED: diphenhydrAMINE 50 MG/ML SDV IVPUSH PRN (13:31)
[2022-02-13] MEDS ORDERED: diphenhydrAMINE 25 MG Cap PO PRN (13:31)
[2022-02-13] MEDS ORDERED: Naloxone 0.4 MG/ML SDV IVPUSH PRN (13:31)
[2022-02-13] MEDS: HYDROmorphone/Normal Saline 6 MG/30 ML PCA Vial IV PRN (13:45)
[2022-02-13] MEDS ORDERED: Naloxone 0.4 MG/ML SDV IV PRN (14:00)
[2022-02-13] MEDS ORDERED: Furosemide 40 MG/4 ML VIAL IVPUSH ONE (14:06)
[2022-02-13] MEDS: Fluconazole/Normal Saline 400 MG in Premix Bag 1 BAG IV SCH (22:32)
[2022-02-14] MEDS: Ciprofloxacin in D5W 400 MG in Premix Bag 1 BAG IV SCH ×2 (01:38)
[2022-02-14] MEDS: Meropenem 500 MG in Sodium Chloride 0.9% 50 ML IV SCH ×2 (02:42→08:50)
[2022-02-14 04:50] LABS: ESTIMATED GFR > 60 (>60)
[2022-02-14] MEDS: HYDROmorphone/Normal Saline 6 MG/30 ML PCA Vial IV PRN ×2 (06:59→17:57)
[2022-02-14] MEDS: Tiotropium Bromide 4 GM Inhalation Spray (2.5mcg/1 dose; 10 doses) INH SCH (07:24)
[2022-02-14] MEDS: Albuterol/Ipratropium 3.0-0.5 MG/3 ML Neb Soln INH SCH ×4 (07:24→22:04)
[2022-02-14] MEDS ORDERED: Central Total Parenteral Nutrition Bag SCH (07:30)
[2022-02-14] MEDS: Docusate Sodium 100 MG Cap PO SCH ×2 (08:51→22:04)
[2022-02-14] MEDS: Divalproex Sodium Delayed-Release 250 MG Tab.CR PO SCH ×2 (08:52→18:00)
[2022-02-14] MEDS: Nicotine 21 MG/24 Hr Patch TRDERM SCH (08:52)
[2022-02-14] MEDS: Lactobacillus Rhamnosus GG (Probiotic) Cap PO SCH ×2 (08:52→22:04)
[2022-02-14] MEDS: Furosemide 20 MG/2 ML VIAL IVPUSH SCH (08:53)
[2022-02-14] MEDS: Calcium Carbonate 500 MG Tab.Chew PO SCH ×2 (08:53→22:03)
[2022-02-14] MEDS: Linezolid 600 MG in Premix Bag 1 BAG IV SCH ×2 (10:54→22:03)
[2022-02-14] MEDS ORDERED: Furosemide 20 MG/2 ML VIAL IVPUSH ONE (11:00)
[2022-02-14] MEDS: Levofloxacin/Dextrose 5%-Water 750 MG in Premix Bag 1 BAG IV SCH (13:53)
[2022-02-14] MEDS: Cefepime 1 GM in Sodium Chloride 0.9% 50 ML IV SCH (15:09)
[2022-02-14] MEDS: AA 5%/Calcium/D15W/Lytes 2,000 ML with MVI, Adult with Vitamin K 10 ML, Zinc/Copper/Man... IV SCH ×3 (15:10)
[2022-02-14] MEDS: Fluconazole/Normal Saline 400 MG in Premix Bag 1 BAG IV SCH (19:43)
[2022-02-14] MEDS: Melatonin 3 MG Tab PO PRN (22:06)
[2022-02-15] MEDS: Cefepime 1 GM in Sodium Chloride 0.9% 50 ML IV SCH ×4 (00:08→23:46)
[2022-02-15] MEDS: Haloperidol 1 MG Tab PO PRN (00:32)
[2022-02-15] MEDS: Bisacodyl 5 MG Tab PO PRN ×2 (00:32→17:15)
[2022-02-15] MEDS: HYDROmorphone/Normal Saline 6 MG/30 ML PCA Vial IV PRN ×2 (04:48→19:45)
[2022-02-15 05:24] LABS: ESTIMATED GFR > 60 (>60)
[2022-02-15] MEDS ORDERED: Meropenem 500 MG SDV ONE (06:43)
[2022-02-15] MEDS ORDERED: Lidocaine 1% with EPINEPHrine 1:100,000 50 ML MDV ONE (06:43)
[2022-02-15] MEDS ORDERED: Bupivacaine 0.5% 50 ML MDV ONE (06:43)
[2022-02-15] MEDS: Tiotropium Bromide 4 GM Inhalation Spray (2.5mcg/1 dose; 10 doses) INH SCH (07:00)
[2022-02-15] MEDS: Albuterol/Ipratropium 3.0-0.5 MG/3 ML Neb Soln INH SCH ×4 (07:00→22:03)
[2022-02-15] MEDS ORDERED: Propofol 200 MG/20 ML SDV ONE ×2 (07:19→08:33)
[2022-02-15] MEDS ORDERED: Ropivacaine 35 ML, dexAMETHasone 8 MG, EPINEPHrine 0.4 MG, Sodium Chloride 0.9% 42.6 ML NERVRT SCH ×4 (08:00)
[2022-02-15] MEDS ORDERED: Linezolid 600 MG/300 ML Premix Bag IRR ONE (09:52)
[2022-02-15] MEDS: Divalproex Sodium Delayed-Release 250 MG Tab.CR PO SCH (10:00)
[2022-02-15] MEDS: Lactobacillus Rhamnosus GG (Probiotic) Cap PO SCH ×2 (10:00→20:02)
[2022-02-15] MEDS: Calcium Carbonate 500 MG Tab.Chew PO SCH ×2 (10:00→20:03)
[2022-02-15] MEDS: Nicotine 21 MG/24 Hr Patch TRDERM SCH (10:01)
[2022-02-15] MEDS: Docusate Sodium 100 MG Cap PO SCH ×2 (10:01→20:02)
[2022-02-15] MEDS: Furosemide 20 MG/2 ML VIAL IVPUSH SCH (10:02)
[2022-02-15] MEDS: Linezolid 600 MG in Premix Bag 1 BAG IV SCH ×2 (10:26→22:03)
[2022-02-15] MEDS: Levofloxacin/Dextrose 5%-Water 750 MG in Premix Bag 1 BAG IV SCH (13:49)
[2022-02-15] MEDS ORDERED: Furosemide 20 MG/2 ML VIAL IV ONE (14:00)
[2022-02-15] MEDS ORDERED: Divalproex Sodium Delayed-Release 250 MG Tab.CR PO SCH (17:00)
[2022-02-15] MEDS: AA 5%/Calcium/D15W/Lytes 2,000 ML with MVI, Adult with Vitamin K 10 ML, Zinc/Copper/Man... IV SCH ×3 (17:01)
[2022-02-15] MEDS: Divalproex Sodium Delayed-Release 125 MG Cap.Sprink PO SCH (17:04)
[2022-02-15] MEDS: Fluconazole/Normal Saline 400 MG in Premix Bag 1 BAG IV SCH (20:01)
[2022-02-15] MEDS: Melatonin 3 MG Tab PO PRN (22:10)
[2022-02-15] MEDS: Acetaminophen 325 MG Tab PO PRN (22:10)
[2022-02-16 05:10] LABS: ESTIMATED GFR > 60 (>60)
[2022-02-16] MEDS: Albuterol/Ipratropium 3.0-0.5 MG/3 ML Neb Soln INH SCH ×4 (07:13→20:51)
[2022-02-16] MEDS: Tiotropium Bromide 4 GM Inhalation Spray (2.5mcg/1 dose; 10 doses) INH SCH (07:13)
[2022-02-16] MEDS: Cefepime 1 GM in Sodium Chloride 0.9% 50 ML IV SCH ×2 (08:12→15:37)
[2022-02-16] MEDS: Divalproex Sodium Delayed-Release 125 MG Cap.Sprink PO SCH ×2 (09:14→17:58)
[2022-02-16] MEDS: Docusate Sodium 100 MG Cap PO SCH ×2 (09:16→20:53)
[2022-02-16] MEDS: Lactobacillus Rhamnosus GG (Probiotic) Cap PO SCH ×2 (09:17→20:52)
[2022-02-16] MEDS: Furosemide 20 MG/2 ML VIAL IVPUSH SCH (09:20)
[2022-02-16] MEDS: Calcium Carbonate 500 MG Tab.Chew PO SCH ×2 (09:20→20:52)
[2022-02-16] MEDS: Linezolid 600 MG in Premix Bag 1 BAG IV SCH ×2 (09:21→21:43)
[2022-02-16] MEDS: Nicotine 21 MG/24 Hr Patch TRDERM SCH (11:03)
[2022-02-16] MEDS: oxyCODONE 5 MG Tab PO PRN ×3 (11:16→20:51)
[2022-02-16] MEDS: Levofloxacin/Dextrose 5%-Water 750 MG in Premix Bag 1 BAG IV SCH (13:22)
[2022-02-16] MEDS ORDERED: Furosemide 20 MG/2 ML VIAL IV ONE (14:00)
[2022-02-16] MEDS: AA 5%/Calcium/D15W/Lytes 2,000 ML with MVI, Adult with Vitamin K 10 ML, Zinc/Copper/Man... IV SCH ×3 (15:37)
[2022-02-16] MEDS: hydrOXYzine HCL 100 MG/2 ML SDV IM PRN (17:58)
[2022-02-16] MEDS: Bisacodyl 5 MG Tab PO PRN (17:58)
[2022-02-16] MEDS: Fluconazole/Normal Saline 400 MG in Premix Bag 1 BAG IV SCH (19:45)
[2022-02-16] MEDS: Melatonin 3 MG Tab PO PRN (20:52)
[2022-02-16] MEDS: Acetaminophen 325 MG Tab PO PRN (20:52)
[2022-02-17] MEDS: Cefepime 1 GM in Sodium Chloride 0.9% 50 ML IV SCH ×3 (00:23→15:24)
[2022-02-17] MEDS: oxyCODONE 5 MG Tab PO PRN ×6 (01:48→23:58)
[2022-02-17 05:05] LABS: ESTIMATED GFR > 60 (>60)
[2022-02-17] MEDS ORDERED: Furosemide 40 MG/4 ML VIAL IVPUSH ONE (06:46)
[2022-02-17] MEDS: Acetaminophen 325 MG Tab PO PRN ×5 (06:47→23:58)
[2022-02-17] MEDS: Albuterol/Ipratropium 3.0-0.5 MG/3 ML Neb Soln INH SCH ×4 (06:57→20:05)
[2022-02-17] MEDS ORDERED: Central Total Parenteral Nutrition Bag SCH (07:15)
[2022-02-17] MEDS: Divalproex Sodium Delayed-Release 125 MG Cap.Sprink PO SCH ×2 (07:27→16:31)
[2022-02-17] MEDS: Linezolid 600 MG in Premix Bag 1 BAG IV SCH ×2 (09:59→22:22)
[2022-02-17] MEDS: Nicotine 21 MG/24 Hr Patch TRDERM SCH (10:01)
[2022-02-17] MEDS: Calcium Carbonate 500 MG Tab.Chew PO SCH ×2 (10:01→20:03)
[2022-02-17] MEDS: Lactobacillus Rhamnosus GG (Probiotic) Cap PO SCH ×2 (10:01→20:02)
[2022-02-17] MEDS: Docusate Sodium 100 MG Cap PO SCH ×2 (10:01→20:02)
[2022-02-17] MEDS: Furosemide 20 MG/2 ML VIAL IVPUSH SCH (10:02)
[2022-02-17] MEDS: Levofloxacin/Dextrose 5%-Water 750 MG in Premix Bag 1 BAG IV SCH (13:19)
[2022-02-17] MEDS: AA 5%/Calcium/D15W/Lytes 2,000 ML with MVI, Adult with Vitamin K 10 ML, Zinc/Copper/Man... IV SCH ×3 (15:24)
[2022-02-17] MEDS: Fluconazole/Normal Saline 400 MG in Premix Bag 1 BAG IV SCH (19:57)
[2022-02-17] MEDS: Melatonin 3 MG Tab PO PRN (23:59)
[2022-02-18] MEDS: Cefepime 1 GM in Sodium Chloride 0.9% 50 ML IV SCH ×3 (00:05→17:10)
[2022-02-18 05:36] LABS: ESTIMATED GFR > 60 (>60)
[2022-02-18] MEDS: Albuterol/Ipratropium 3.0-0.5 MG/3 ML Neb Soln INH SCH ×4 (07:07→21:01)
[2022-02-18] MEDS ORDERED: Central Total Parenteral Nutrition Bag SCH (07:15)
[2022-02-18] MEDS: Divalproex Sodium Delayed-Release 125 MG Cap.Sprink PO SCH ×2 (08:52→17:10)
[2022-02-18] MEDS: Furosemide 20 MG/2 ML VIAL IVPUSH SCH (08:52)
[2022-02-18] MEDS: Docusate Sodium 100 MG Cap PO SCH ×2 (08:52→21:03)
[2022-02-18] MEDS: Lactobacillus Rhamnosus GG (Probiotic) Cap PO SCH ×2 (08:53→21:03)
[2022-02-18] MEDS: Calcium Carbonate 500 MG Tab.Chew PO SCH ×2 (08:53→21:04)
[2022-02-18] MEDS ORDERED: Nicotine 14 MG/24 Hr Patch TRDERM ONE (09:00)
[2022-02-18] MEDS ORDERED: SODIUM CHLORIDE ONE (09:00)
[2022-02-18] MEDS ORDERED: Potassium Chloride 20 MEQ Tab.ER PO ONE (09:00)
[2022-02-18] MEDS: Micafungin 100 MG in Sodium Chloride 0.9% 100 ML IV SCH (09:48)
[2022-02-18] MEDS: oxyCODONE 5 MG Tab PO PRN ×3 (10:07→21:00)
[2022-02-18] MEDS: Albumin Human 25 GM in Premix Bag 1 BAG IV SCH ×2 (10:09→13:51)
[2022-02-18] MEDS: Linezolid 600 MG in Premix Bag 1 BAG IV SCH ×2 (11:12→23:34)
[2022-02-18] MEDS: Levofloxacin/Dextrose 5%-Water 750 MG in Premix Bag 1 BAG IV SCH (13:48)
[2022-02-18] MEDS: AA 5%/Calcium/D15W/Lytes 2,000 ML with MVI, Adult with Vitamin K 10 ML, Zinc/Copper/Man... IV SCH ×3 (14:30)
[2022-02-18] MEDS: Acetaminophen 325 MG Tab PO PRN (15:32)
[2022-02-18] MEDS: Melatonin 3 MG Tab PO PRN (21:00)
[2022-02-19] MEDS: oxyCODONE 5 MG Tab PO PRN ×6 (00:45→20:35)
[2022-02-19] MEDS: Cefepime 1 GM in Sodium Chloride 0.9% 50 ML IV SCH ×3 (00:45→16:18)
[2022-02-19 04:48] LABS: ESTIMATED GFR > 60 (>60)
[2022-02-19] MEDS ORDERED: Furosemide 20 MG/2 ML VIAL IVPUSH ONE (07:01)
[2022-02-19] MEDS: Albuterol/Ipratropium 3.0-0.5 MG/3 ML Neb Soln INH SCH ×4 (07:02→20:38)
[2022-02-19] MEDS ORDERED: Central Total Parenteral Nutrition Bag SCH (07:15)
[2022-02-19] MEDS: Lactobacillus Rhamnosus GG (Probiotic) Cap PO SCH ×2 (08:18→20:37)
[2022-02-19] MEDS: Divalproex Sodium Delayed-Release 125 MG Cap.Sprink PO SCH ×2 (08:18→16:19)
[2022-02-19] MEDS: Docusate Sodium 100 MG Cap PO SCH ×2 (08:18→20:37)
[2022-02-19] MEDS: Calcium Carbonate 500 MG Tab.Chew PO SCH ×2 (08:19→20:36)
[2022-02-19] MEDS: Furosemide 20 MG/2 ML VIAL IVPUSH SCH ×2 (08:19→16:18)
[2022-02-19] MEDS: Micafungin 100 MG in Sodium Chloride 0.9% 100 ML IV SCH (08:20)
[2022-02-19] MEDS: Albumin Human 25 GM in Premix Bag 1 BAG IV SCH ×2 (10:01→14:09)
[2022-02-19] MEDS: Linezolid 600 MG in Premix Bag 1 BAG IV SCH ×2 (10:01→22:21)
[2022-02-19] MEDS: Acetaminophen 325 MG Tab PO PRN ×2 (12:28→16:31)
[2022-02-19] MEDS: Levofloxacin/Dextrose 5%-Water 750 MG in Premix Bag 1 BAG IV SCH (14:09)
[2022-02-19] MEDS: AA 5%/Calcium/D15W/Lytes 2,000 ML with MVI, Adult with Vitamin K 10 ML, Zinc/Copper/Man... IV SCH ×3 (16:18)
[2022-02-20] MEDS: oxyCODONE 5 MG Tab PO PRN ×5 (00:40→21:50)
[2022-02-20] MEDS: Cefepime 1 GM in Sodium Chloride 0.9% 50 ML IV SCH ×4 (00:41→23:43)
[2022-02-20 05:34] LABS: ESTIMATED GFR > 60 (>60)
[2022-02-20] MEDS: Albuterol/Ipratropium 3.0-0.5 MG/3 ML Neb Soln INH SCH ×4 (07:16→20:17)
[2022-02-20] MEDS ORDERED: Central Total Parenteral Nutrition Bag SCH (07:30)
[2022-02-20] MEDS: Calcium Carbonate 500 MG Tab.Chew PO SCH ×2 (08:12→20:18)
[2022-02-20] MEDS: Gabapentin 300 MG Cap PO SCH ×3 (08:14→20:18)
[2022-02-20] MEDS: Lactobacillus Rhamnosus GG (Probiotic) Cap PO SCH ×2 (08:14→20:17)
[2022-02-20] MEDS: Docusate Sodium 100 MG Cap PO SCH ×2 (08:15→20:15)
[2022-02-20] MEDS: Divalproex Sodium Delayed-Release 125 MG Cap.Sprink PO SCH ×2 (08:15→17:10)
[2022-02-20] MEDS: Furosemide 20 MG/2 ML VIAL IVPUSH SCH (08:16)
[2022-02-20] MEDS: Micafungin 100 MG in Sodium Chloride 0.9% 100 ML IV SCH (10:07)
[2022-02-20] MEDS: Albumin Human 25 GM in Premix Bag 1 BAG IV SCH ×2 (10:07→14:23)
[2022-02-20] MEDS: Linezolid 600 MG in Premix Bag 1 BAG IV SCH ×2 (11:21→21:51)
[2022-02-20] MEDS: CALCIUM IV SCH ×3 (11:47)
[2022-02-20] MEDS: [UNRECOGNIZED DRUG - OTHER] IV SCH ×3 (11:47)
[2022-02-20] MEDS: VITAMIN K IV SCH ×3 (11:47)
[2022-02-20] MEDS: MVI IV SCH ×3 (11:47)
[2022-02-20] MEDS: LYTES IV SCH ×3 (11:47)
[2022-02-20] MEDS ORDERED: Furosemide 20 MG/2 ML VIAL IVPUSH ONE (14:00)
[2022-02-20] MEDS: Levofloxacin/Dextrose 5%-Water 750 MG in Premix Bag 1 BAG IV SCH (14:23)
[2022-02-20] MEDS: traZODone 50 MG Tab PO SCH (20:16)
[2022-02-20] MEDS: Amitriptyline 10 MG Tab PO SCH (20:16)
[2022-02-21] MEDS: oxyCODONE 5 MG Tab PO PRN ×5 (04:48→23:27)
[2022-02-21 05:14] LABS: ESTIMATED GFR > 60 (>60)
[2022-02-21] MEDS: Albuterol/Ipratropium 3.0-0.5 MG/3 ML Neb Soln INH SCH ×4 (07:11→20:15)
[2022-02-21] MEDS ORDERED: Central Total Parenteral Nutrition Bag SCH (07:30)
[2022-02-21] MEDS: Cefepime 1 GM in Sodium Chloride 0.9% 50 ML IV SCH ×2 (07:58→16:09)
[2022-02-21] MEDS: Lactobacillus Rhamnosus GG (Probiotic) Cap PO SCH ×2 (07:59→20:16)
[2022-02-21] MEDS: Docusate Sodium 100 MG Cap PO SCH ×2 (07:59→20:16)
[2022-02-21] MEDS: Divalproex Sodium Delayed-Release 125 MG Cap.Sprink PO SCH ×2 (07:59→16:09)
[2022-02-21] MEDS: Gabapentin 300 MG Cap PO SCH ×3 (07:59→20:16)
[2022-02-21] MEDS: Calcium Carbonate 500 MG Tab.Chew PO SCH ×2 (07:59→20:17)
[2022-02-21] MEDS: Furosemide 20 MG/2 ML VIAL IVPUSH SCH ×2 (09:02→14:14)
[2022-02-21] MEDS: Potassium Chloride 20 MEQ Tab.ER PO SCH ×3 (09:02→20:16)
[2022-02-21] MEDS: Micafungin 100 MG in Sodium Chloride 0.9% 100 ML IV SCH (09:02)
[2022-02-21] MEDS: Linezolid 600 MG in Premix Bag 1 BAG IV SCH ×2 (10:27→22:16)
[2022-02-21] MEDS: [UNRECOGNIZED DRUG - OTHER] IV SCH ×3 (11:30)
[2022-02-21] MEDS: MVI IV SCH ×3 (11:30)
[2022-02-21] MEDS: CALCIUM IV SCH ×3 (11:30)
[2022-02-21] MEDS: LYTES IV SCH ×3 (11:30)
[2022-02-21] MEDS: VITAMIN K IV SCH ×3 (11:30)
[2022-02-21] MEDS: Levofloxacin/Dextrose 5%-Water 750 MG in Premix Bag 1 BAG IV SCH (13:06)
[2022-02-21] MEDS: traZODone 50 MG Tab PO SCH (20:16)
[2022-02-21] MEDS: Amitriptyline 10 MG Tab PO SCH (20:16)
[2022-02-21] MEDS: Acetaminophen 325 MG Tab PO PRN (23:28)
[2022-02-22] MEDS: Cefepime 1 GM in Sodium Chloride 0.9% 50 ML IV SCH ×3 (00:19→16:43)
[2022-02-22] MEDS: oxyCODONE 5 MG Tab PO PRN ×5 (04:03→20:40)
[2022-02-22 05:26] LABS: ESTIMATED GFR > 60 (>60)
[2022-02-22] MEDS: Albuterol/Ipratropium 3.0-0.5 MG/3 ML Neb Soln INH SCH ×4 (07:33→22:18)
[2022-02-22] MEDS ORDERED: Central Total Parenteral Nutrition Bag SCH (07:45)
[2022-02-22] MEDS: Divalproex Sodium Delayed-Release 125 MG Cap.Sprink PO SCH ×2 (08:24→16:44)
[2022-02-22] MEDS: Lactobacillus Rhamnosus GG (Probiotic) Cap PO SCH ×2 (08:25→22:18)
[2022-02-22] MEDS: Docusate Sodium 100 MG Cap PO SCH ×2 (08:25→22:18)
[2022-02-22] MEDS: Furosemide 20 MG/2 ML VIAL IVPUSH SCH ×2 (08:26→14:23)
[2022-02-22] MEDS: Calcium Carbonate 500 MG Tab.Chew PO SCH ×2 (08:26→22:19)
[2022-02-22] MEDS: Gabapentin 300 MG Cap PO SCH ×3 (08:26→20:40)
[2022-02-22] MEDS: Micafungin 100 MG in Sodium Chloride 0.9% 100 ML IV SCH (09:43)
[2022-02-22] MEDS: Linezolid 600 MG in Premix Bag 1 BAG IV SCH ×2 (10:48→22:19)
[2022-02-22] MEDS: LYTES IV SCH ×3 (11:58)
[2022-02-22] MEDS: MVI IV SCH ×3 (11:58)
[2022-02-22] MEDS: CALCIUM IV SCH ×3 (11:58)
[2022-02-22] MEDS: VITAMIN K IV SCH ×3 (11:58)
[2022-02-22] MEDS: [UNRECOGNIZED DRUG - OTHER] IV SCH ×3 (11:58)
[2022-02-22] MEDS: Levofloxacin/Dextrose 5%-Water 750 MG in Premix Bag 1 BAG IV SCH (11:59)
[2022-02-22] MEDS: Acetaminophen 325 MG Tab PO PRN (20:40)
[2022-02-22] MEDS: traZODone 50 MG Tab PO SCH (22:18)
[2022-02-22] MEDS: Amitriptyline 10 MG Tab PO SCH (22:19)
[2022-02-23] MEDS: Cefepime 1 GM in Sodium Chloride 0.9% 50 ML IV SCH ×3 (00:21→16:03)
[2022-02-23] MEDS: oxyCODONE 5 MG Tab PO PRN ×5 (04:48→21:36)
[2022-02-23 05:23] LABS: ESTIMATED GFR > 60 (>60)
[2022-02-23] MEDS: Albuterol/Ipratropium 3.0-0.5 MG/3 ML Neb Soln INH SCH ×4 (07:05→20:50)
[2022-02-23] MEDS ORDERED: Central Total Parenteral Nutrition Bag SCH (07:15)
[2022-02-23] MEDS: Docusate Sodium 100 MG Cap PO SCH ×2 (08:50→20:51)
[2022-02-23] MEDS: Divalproex Sodium Delayed-Release 125 MG Cap.Sprink PO SCH ×2 (08:50→16:03)
[2022-02-23] MEDS: Gabapentin 300 MG Cap PO SCH ×3 (08:50→20:54)
[2022-02-23] MEDS: Lactobacillus Rhamnosus GG (Probiotic) Cap PO SCH ×2 (08:50→20:52)
[2022-02-23] MEDS: Furosemide 20 MG/2 ML VIAL IVPUSH SCH ×2 (08:50→14:14)
[2022-02-23] MEDS: Calcium Carbonate 500 MG Tab.Chew PO SCH ×2 (08:51→20:54)
[2022-02-23] MEDS: Micafungin 100 MG in Sodium Chloride 0.9% 100 ML IV SCH (09:40)
[2022-02-23] MEDS: Linezolid 600 MG in Premix Bag 1 BAG IV SCH ×2 (10:45→21:37)
[2022-02-23] MEDS: VITAMIN K IV SCH ×3 (11:28)
[2022-02-23] MEDS: MVI IV SCH ×3 (11:28)
[2022-02-23] MEDS: LYTES IV SCH ×3 (11:28)
[2022-02-23] MEDS: CALCIUM IV SCH ×3 (11:28)
[2022-02-23] MEDS: [UNRECOGNIZED DRUG - OTHER] IV SCH ×3 (11:28)
[2022-02-23] MEDS: Levofloxacin/Dextrose 5%-Water 750 MG in Premix Bag 1 BAG IV SCH (13:14)
[2022-02-23] MEDS: traZODone 50 MG Tab PO SCH (20:53)
[2022-02-23] MEDS: Amitriptyline 10 MG Tab PO SCH (20:53)
[2022-02-23] MEDS: Acetaminophen 325 MG Tab PO PRN (22:12)
[2022-02-24] MEDS: Cefepime 1 GM in Sodium Chloride 0.9% 50 ML IV SCH ×4 (00:20→23:22)
[2022-02-24] MEDS: oxyCODONE 5 MG Tab PO PRN ×5 (04:22→22:50)
[2022-02-24] MEDS: Acetaminophen 325 MG Tab PO PRN ×2 (04:22→12:55)
[2022-02-24 04:49] LABS: ESTIMATED GFR > 60 (>60)
[2022-02-24] MEDS: Albuterol/Ipratropium 3.0-0.5 MG/3 ML Neb Soln INH SCH ×4 (07:10→20:12)
[2022-02-24] MEDS ORDERED: Central Total Parenteral Nutrition Bag SCH (07:45)
[2022-02-24] MEDS: Lactobacillus Rhamnosus GG (Probiotic) Cap PO SCH ×2 (08:48→20:11)
[2022-02-24] MEDS: Gabapentin 300 MG Cap PO SCH ×3 (08:48→20:12)
[2022-02-24] MEDS: Docusate Sodium 100 MG Cap PO SCH ×2 (08:48→20:13)
[2022-02-24] MEDS: Dronabinol 2.5 MG Cap PO SCH ×2 (08:49→20:11)
[2022-02-24] MEDS: Furosemide 20 MG/2 ML VIAL IVPUSH SCH ×2 (08:49→16:05)
[2022-02-24] MEDS: Divalproex Sodium Delayed-Release 125 MG Cap.Sprink PO SCH ×2 (08:49→17:22)
[2022-02-24] MEDS: Calcium Carbonate 500 MG Tab.Chew PO SCH ×2 (08:49→20:12)
[2022-02-24] MEDS: Micafungin 100 MG in Sodium Chloride 0.9% 100 ML IV SCH ×2 (09:08→09:55)
[2022-02-24] MEDS: MVI IV SCH ×3 (12:50)
[2022-02-24] MEDS: [UNRECOGNIZED DRUG - OTHER] IV SCH ×3 (12:50)
[2022-02-24] MEDS: CALCIUM IV SCH ×3 (12:50)
[2022-02-24] MEDS: LYTES IV SCH ×3 (12:50)
[2022-02-24] MEDS: VITAMIN K IV SCH ×3 (12:50)
[2022-02-24] MEDS ORDERED: Ondansetron 4 MG Tab.DIS PO PRN (13:54)
[2022-02-24] MEDS ORDERED: Ondansetron 4 MG/2 ML SDV IVPUSH PRN (13:54)
[2022-02-24] MEDS ORDERED: Iopamidol 612 MG/ML 100 ML Bottle IV PRN (14:01)
[2022-02-24] MEDS ORDERED: Sodium Chloride 0.9% 50 ML IV SCH (14:15)
[2022-02-24] MEDS: Amitriptyline 10 MG Tab PO SCH (20:12)
[2022-02-24] MEDS: traZODone 50 MG Tab PO SCH (20:12)
[2022-02-25] MEDS: oxyCODONE 5 MG Tab PO PRN ×4 (04:42→19:50)
[2022-02-25 04:43] LABS: ESTIMATED GFR > 60 (>60)
[2022-02-25] MEDS: Albuterol/Ipratropium 3.0-0.5 MG/3 ML Neb Soln INH SCH ×4 (07:17→21:43)
[2022-02-25] MEDS ORDERED: Albuterol/Ipratropium 3.0-0.5 MG/3 ML Neb Soln INH PRN (07:37)
[2022-02-25] MEDS: Divalproex Sodium Delayed-Release 125 MG Cap.Sprink PO SCH ×2 (08:22→16:17)
[2022-02-25] MEDS: Micafungin 100 MG in Sodium Chloride 0.9% 100 ML IV SCH (08:23)
[2022-02-25] MEDS: Calcium Carbonate 500 MG Tab.Chew PO SCH ×2 (08:23→21:42)
[2022-02-25] MEDS: Docusate Sodium 100 MG Cap PO SCH ×2 (08:23→21:42)
[2022-02-25] MEDS: Lactobacillus Rhamnosus GG (Probiotic) Cap PO SCH ×2 (08:23→21:42)
[2022-02-25] MEDS: Furosemide 20 MG/2 ML VIAL IVPUSH SCH ×2 (08:24→13:10)
[2022-02-25] MEDS: Gabapentin 300 MG Cap PO SCH ×3 (08:24→21:42)
[2022-02-25] MEDS: Dronabinol 2.5 MG Cap PO SCH ×2 (08:34→21:43)
[2022-02-25] MEDS: Cefepime 1 GM in Sodium Chloride 0.9% 50 ML IV SCH ×3 (10:28→23:55)
[2022-02-25] MEDS ORDERED: LYTES IV SCH ×3 (13:00)
[2022-02-25] MEDS ORDERED: [UNRECOGNIZED DRUG - OTHER] IV SCH ×3 (13:00)
[2022-02-25] MEDS ORDERED: VITAMIN K IV SCH ×3 (13:00)
[2022-02-25] MEDS ORDERED: CALCIUM IV SCH ×3 (13:00)
[2022-02-25] MEDS ORDERED: MVI IV SCH ×3 (13:00)
[2022-02-25] MEDS: 1: AA 4.25%/Calcium/D10W/Lytes 1,000 ML with MVI, Adult with Vitamin K 10 ML, Zinc/Coppe IV SCH ×3 (15:04)
[2022-02-25] MEDS: traZODone 50 MG Tab PO SCH (21:42)
[2022-02-25] MEDS: Amitriptyline 10 MG Tab PO SCH (21:43)
[2022-02-26] MEDS: oxyCODONE 5 MG Tab PO PRN ×5 (02:15→21:40)
[2022-02-26 05:00] LABS: ESTIMATED GFR 120 mL/min (>60)
[2022-02-26] MEDS: Albuterol/Ipratropium 3.0-0.5 MG/3 ML Neb Soln INH SCH ×4 (07:04→21:41)
[2022-02-26] MEDS: Cefepime 1 GM in Sodium Chloride 0.9% 50 ML IV SCH ×3 (07:38→23:43)
[2022-02-26] MEDS: Divalproex Sodium Delayed-Release 125 MG Cap.Sprink PO SCH ×2 (07:40→17:08)
[2022-02-26] MEDS: Calcium Carbonate 500 MG Tab.Chew PO SCH ×2 (08:53→21:40)
[2022-02-26] MEDS: Micafungin 100 MG in Sodium Chloride 0.9% 100 ML IV SCH (08:53)
[2022-02-26] MEDS: Gabapentin 300 MG Cap PO SCH ×3 (08:53→21:40)
[2022-02-26] MEDS: Bisacodyl 5 MG Tab PO SCH ×2 (08:53→21:40)
[2022-02-26] MEDS: Magnesium Hydroxide 400 MG/5 ML Susp 30 ML Cup PO SCH ×2 (08:53→21:41)
[2022-02-26] MEDS: Lactobacillus Rhamnosus GG (Probiotic) Cap PO SCH ×2 (08:54→21:40)
[2022-02-26] MEDS: Dronabinol 2.5 MG Cap PO SCH ×2 (08:54→21:40)
[2022-02-26] MEDS: Docusate Sodium 100 MG Cap PO SCH ×2 (08:54→21:40)
[2022-02-26] MEDS: Furosemide 20 MG/2 ML VIAL IVPUSH SCH ×2 (08:54→13:05)
[2022-02-26] MEDS: 1: AA 4.25%/Calcium/D10W/Lytes 1,000 ML with MVI, Adult with Vitamin K 10 ML, Zinc/Coppe IV SCH ×3 (11:16)
[2022-02-26] MEDS: traZODone 50 MG Tab PO SCH (21:40)
[2022-02-26] MEDS: Amitriptyline 10 MG Tab PO SCH (21:40)
[2022-02-27] MEDS: oxyCODONE 5 MG Tab PO PRN ×4 (03:16→20:58)
[2022-02-27] MEDS: 1: AA 4.25%/Calcium/D10W/Lytes 1,000 ML with MVI, Adult with Vitamin K 10 ML, Zinc/Coppe IV SCH ×6 (04:07→20:52)
[2022-02-27 06:26] LABS: ESTIMATED GFR 113 mL/min (>60)
[2022-02-27] MEDS: Albuterol/Ipratropium 3.0-0.5 MG/3 ML Neb Soln INH SCH ×4 (07:14→21:00)
[2022-02-27] MEDS ORDERED: Polyethylene Glycol 3350 Powder 17 GM Packet PO ONE (07:50)
[2022-02-27] MEDS: Divalproex Sodium Delayed-Release 125 MG Cap.Sprink PO SCH ×2 (07:52→17:53)
[2022-02-27] MEDS: Cefepime 1 GM in Sodium Chloride 0.9% 50 ML IV SCH ×2 (07:57→16:46)
[2022-02-27] MEDS ORDERED: Central Total Parenteral Nutrition Bag SCH (08:00)
[2022-02-27] MEDS: Calcium Carbonate 500 MG Tab.Chew PO SCH ×2 (08:00→21:00)
[2022-02-27] MEDS: Lactobacillus Rhamnosus GG (Probiotic) Cap PO SCH ×2 (08:00→21:00)
[2022-02-27] MEDS: Gabapentin 300 MG Cap PO SCH ×3 (08:00→20:59)
[2022-02-27] MEDS: Docusate Sodium 100 MG Cap PO SCH ×2 (08:00→20:59)
[2022-02-27] MEDS: Bisacodyl 5 MG Tab PO SCH ×2 (08:00→20:59)
[2022-02-27] MEDS: Furosemide 20 MG/2 ML VIAL IVPUSH SCH ×2 (08:01→14:45)
[2022-02-27] MEDS ORDERED: Polyethylene Glycol 3350 Powder 119 GM Bottle PO ONE (08:15)
[2022-02-27] MEDS: Micafungin 100 MG in Sodium Chloride 0.9% 100 ML IV SCH (09:53)
[2022-02-27] MEDS: Dronabinol 2.5 MG Cap PO SCH ×2 (10:12→20:58)
[2022-02-27] MEDS: Amitriptyline 10 MG Tab PO SCH (20:59)
[2022-02-27] MEDS: traZODone 50 MG Tab PO SCH (20:59)
[2022-02-28] MEDS: Cefepime 1 GM in Sodium Chloride 0.9% 50 ML IV SCH ×3 (00:30→16:23)
[2022-02-28 05:12] LABS: ESTIMATED GFR 128 mL/min (>60)
[2022-02-28] MEDS: oxyCODONE 5 MG Tab PO PRN ×3 (05:28→19:28)
[2022-02-28] MEDS: Albuterol/Ipratropium 3.0-0.5 MG/3 ML Neb Soln INH SCH ×4 (07:13→20:13)
[2022-02-28] MEDS ORDERED: Central Total Parenteral Nutrition Bag SCH (07:45)
[2022-02-28] MEDS ORDERED: Polyethylene Glycol 3350 Powder 119 GM Bottle PO ONE (08:00)
[2022-02-28] MEDS: Furosemide 20 MG/2 ML VIAL IVPUSH SCH ×2 (08:15→15:26)
[2022-02-28] MEDS: Bisacodyl 5 MG Tab PO SCH ×2 (08:16→20:14)
[2022-02-28] MEDS: Gabapentin 300 MG Cap PO SCH ×3 (08:17→20:13)
[2022-02-28] MEDS: Docusate Sodium 100 MG Cap PO SCH ×2 (08:17→20:14)
[2022-02-28] MEDS: Divalproex Sodium Delayed-Release 125 MG Cap.Sprink PO SCH ×2 (08:17→16:24)
[2022-02-28] MEDS: Calcium Carbonate 500 MG Tab.Chew PO SCH ×2 (08:17→20:13)
[2022-02-28] MEDS: Lactobacillus Rhamnosus GG (Probiotic) Cap PO SCH ×2 (08:18→20:13)
[2022-02-28] MEDS: Micafungin 100 MG in Sodium Chloride 0.9% 100 ML IV SCH (08:29)
[2022-02-28] MEDS: Dronabinol 2.5 MG Cap PO SCH ×2 (08:56→20:13)
[2022-02-28] MEDS ORDERED: Furosemide 20 MG/2 ML VIAL IVPUSH ONE (11:00)
[2022-02-28] MEDS: 1: AA 4.25%/Calcium/D10W/Lytes 1,000 ML with MVI, Adult with Vitamin K 10 ML, Zinc/Coppe IV SCH ×3 (13:20)
[2022-02-28] MEDS: traZODone 50 MG Tab PO SCH (20:14)
[2022-02-28] MEDS: Amitriptyline 10 MG Tab PO SCH (20:14)
[2022-03-01] MEDS: Cefepime 1 GM in Sodium Chloride 0.9% 50 ML IV SCH ×3 (00:18→15:00)
[2022-03-01 05:03] LABS: ESTIMATED GFR 128 mL/min (>60)
[2022-03-01] MEDS: oxyCODONE 5 MG Tab PO PRN ×3 (05:13→21:23)
[2022-03-01] MEDS: 1: AA 4.25%/Calcium/D10W/Lytes 1,000 ML with MVI, Adult with Vitamin K 10 ML, Zinc/Coppe IV SCH ×6 (06:02→21:59)
[2022-03-01] MEDS: Albuterol/Ipratropium 3.0-0.5 MG/3 ML Neb Soln INH SCH ×4 (07:13→21:25)
[2022-03-01] MEDS: Gabapentin 300 MG Cap PO SCH ×3 (08:59→21:24)
[2022-03-01] MEDS: Bisacodyl 5 MG Tab PO SCH ×2 (09:00→21:24)
[2022-03-01] MEDS: Divalproex Sodium Delayed-Release 125 MG Cap.Sprink PO SCH ×2 (09:00→18:02)
[2022-03-01] MEDS: Lactobacillus Rhamnosus GG (Probiotic) Cap PO SCH ×2 (09:00→21:24)
[2022-03-01] MEDS: Furosemide 20 MG/2 ML VIAL IVPUSH SCH ×2 (09:00→13:58)
[2022-03-01] MEDS: Calcium Carbonate 500 MG Tab.Chew PO SCH ×2 (09:00→21:27)
[2022-03-01] MEDS: Docusate Sodium 100 MG Cap PO SCH ×2 (09:01→21:24)
[2022-03-01] MEDS: Dronabinol 2.5 MG Cap PO SCH ×2 (09:10→21:23)
[2022-03-01] MEDS: Micafungin 100 MG in Sodium Chloride 0.9% 100 ML IV SCH (10:39)
[2022-03-01] MEDS: traZODone 50 MG Tab PO SCH (21:24)
[2022-03-01] MEDS: Amitriptyline 10 MG Tab PO SCH (21:24)
[2022-03-02] MEDS: Cefepime 1 GM in Sodium Chloride 0.9% 50 ML IV SCH ×3 (01:11→15:22)
[2022-03-02] MEDS: oxyCODONE 5 MG Tab PO PRN ×5 (01:33→20:50)
[2022-03-02] MEDS: Albuterol/Ipratropium 3.0-0.5 MG/3 ML Neb Soln INH SCH ×4 (07:07→21:00)
[2022-03-02] MEDS: Bisacodyl 5 MG Tab PO SCH ×2 (09:29→20:44)
[2022-03-02] MEDS: Lactobacillus Rhamnosus GG (Probiotic) Cap PO SCH ×2 (09:29→20:44)
[2022-03-02] MEDS: Gabapentin 300 MG Cap PO SCH ×3 (09:29→20:44)
[2022-03-02] MEDS: Calcium Carbonate 500 MG Tab.Chew PO SCH ×2 (09:30→20:45)
[2022-03-02] MEDS: Divalproex Sodium Delayed-Release 125 MG Cap.Sprink PO SCH ×2 (09:30→17:42)
[2022-03-02] MEDS: Furosemide 20 MG/2 ML VIAL IVPUSH SCH ×2 (09:31→15:20)
[2022-03-02] MEDS: Docusate Sodium 100 MG Cap PO SCH ×2 (09:31→20:44)
[2022-03-02] MEDS: Dronabinol 2.5 MG Cap PO SCH ×2 (09:35→20:50)
[2022-03-02] MEDS: Micafungin 100 MG in Sodium Chloride 0.9% 100 ML IV SCH (10:19)
[2022-03-02] MEDS: 1: AA 4.25%/Calcium/D10W/Lytes 1,000 ML with MVI, Adult with Vitamin K 10 ML, Zinc/Coppe IV SCH ×3 (15:21)
[2022-03-02] MEDS: traZODone 50 MG Tab PO SCH (20:44)
[2022-03-02] MEDS: Amitriptyline 10 MG Tab PO SCH (20:44)
[2022-03-03] MEDS: Cefepime 1 GM in Sodium Chloride 0.9% 50 ML IV SCH ×3 (00:32→16:35)
[2022-03-03] MEDS: oxyCODONE 5 MG Tab PO PRN ×4 (03:31→20:41)
[2022-03-03 04:58] LABS: ESTIMATED GFR 120 mL/min (>60)
[2022-03-03] MEDS ORDERED: Central Total Parenteral Nutrition Bag SCH (07:00)
[2022-03-03] MEDS: Albuterol/Ipratropium 3.0-0.5 MG/3 ML Neb Soln INH SCH ×4 (07:12→20:37)
[2022-03-03] MEDS: 1: AA 4.25%/Calcium/D10W/Lytes 1,000 ML with MVI, Adult with Vitamin K 10 ML, Zinc/Coppe IV SCH ×3 (08:22)
[2022-03-03] MEDS: Gabapentin 300 MG Cap PO SCH ×3 (08:31→20:38)
[2022-03-03] MEDS: Divalproex Sodium Delayed-Release 125 MG Cap.Sprink PO SCH ×2 (08:31→17:48)
[2022-03-03] MEDS: Lactobacillus Rhamnosus GG (Probiotic) Cap PO SCH ×2 (08:31→20:39)
[2022-03-03] MEDS: Micafungin 100 MG in Sodium Chloride 0.9% 100 ML IV SCH (08:32)
[2022-03-03] MEDS: Bisacodyl 5 MG Tab PO SCH ×2 (08:32→20:39)
[2022-03-03] MEDS: Calcium Carbonate 500 MG Tab.Chew PO SCH ×2 (08:32→20:39)
[2022-03-03] MEDS: Docusate Sodium 100 MG Cap PO SCH ×2 (08:32→20:39)
[2022-03-03] MEDS: Furosemide 20 MG/2 ML VIAL IVPUSH SCH ×2 (08:32→14:04)
[2022-03-03] MEDS: Dronabinol 2.5 MG Cap PO SCH ×2 (08:41→20:37)
[2022-03-03] MEDS: Melatonin 3 MG Tab PO PRN (20:37)
[2022-03-03] MEDS: Amitriptyline 10 MG Tab PO SCH (20:38)
[2022-03-03] MEDS: traZODone 50 MG Tab PO SCH (20:38)
[2022-03-04] MEDS: Cefepime 1 GM in Sodium Chloride 0.9% 50 ML IV SCH ×3 (00:01→15:00)
[2022-03-04] MEDS: 1: AA 4.25%/Calcium/D10W/Lytes 1,000 ML with MVI, Adult with Vitamin K 10 ML, Zinc/Coppe IV SCH ×3 (02:22)
[2022-03-04] MEDS: Acetaminophen 325 MG Tab PO PRN ×2 (04:28→19:09)
[2022-03-04] MEDS: oxyCODONE 5 MG Tab PO PRN ×4 (04:28→19:08)
[2022-03-04 05:01] LABS: ESTIMATED GFR 120 mL/min (>60)
[2022-03-04] MEDS: Albuterol/Ipratropium 3.0-0.5 MG/3 ML Neb Soln INH SCH ×4 (07:00→20:21)
[2022-03-04] MEDS ORDERED: Central Total Parenteral Nutrition Bag SCH (09:00)
[2022-03-04] MEDS: Bisacodyl 5 MG Tab PO SCH ×2 (09:34→20:21)
[2022-03-04] MEDS: Lactobacillus Rhamnosus GG (Probiotic) Cap PO SCH ×2 (09:34→20:21)
[2022-03-04] MEDS: Gabapentin 300 MG Cap PO SCH ×3 (09:34→20:20)
[2022-03-04] MEDS: Divalproex Sodium Delayed-Release 125 MG Cap.Sprink PO SCH ×2 (09:34→17:30)
[2022-03-04] MEDS: Furosemide 20 MG/2 ML VIAL IVPUSH SCH ×2 (09:35→14:23)
[2022-03-04] MEDS: Docusate Sodium 100 MG Cap PO SCH ×2 (09:35→20:21)
[2022-03-04] MEDS: Calcium Carbonate 500 MG Tab.Chew PO SCH ×2 (09:35→20:21)
[2022-03-04] MEDS: Dronabinol 2.5 MG Cap PO SCH ×2 (09:49→20:25)
[2022-03-04] MEDS: traZODone 50 MG Tab PO SCH (20:21)
[2022-03-04] MEDS: Amitriptyline 10 MG Tab PO SCH (20:21)
[2022-03-05] MEDS: Cefepime 1 GM in Sodium Chloride 0.9% 50 ML IV SCH ×4 (00:08→23:13)
[2022-03-05] MEDS: oxyCODONE 5 MG Tab PO PRN ×4 (05:24→21:38)
[2022-03-05] MEDS: Acetaminophen 325 MG Tab PO PRN ×2 (05:24→21:38)
[2022-03-05] MEDS: Albuterol/Ipratropium 3.0-0.5 MG/3 ML Neb Soln INH SCH ×4 (07:05→21:38)
[2022-03-05] MEDS: Docusate Sodium 100 MG Cap PO SCH ×2 (09:23→21:39)
[2022-03-05] MEDS: Divalproex Sodium Delayed-Release 125 MG Cap.Sprink PO SCH ×2 (09:23→16:29)
[2022-03-05] MEDS: Lactobacillus Rhamnosus GG (Probiotic) Cap PO SCH ×2 (09:23→21:39)
[2022-03-05] MEDS: Gabapentin 300 MG Cap PO SCH ×3 (09:23→21:38)
[2022-03-05] MEDS: Bisacodyl 5 MG Tab PO SCH ×2 (09:25→21:39)
[2022-03-05] MEDS: Furosemide 20 MG/2 ML VIAL IVPUSH SCH ×2 (09:25→14:31)
[2022-03-05] MEDS: Calcium Carbonate 500 MG Tab.Chew PO SCH ×2 (09:26→21:40)
[2022-03-05] MEDS: Dronabinol 2.5 MG Cap PO SCH ×2 (09:32→21:38)
[2022-03-05] MEDS: Amitriptyline 10 MG Tab PO SCH (21:39)
[2022-03-05] MEDS: traZODone 50 MG Tab PO SCH (21:40)
[2022-03-06] MEDS: oxyCODONE 5 MG Tab PO PRN ×3 (04:06→13:19)
[2022-03-06] MEDS: Acetaminophen 325 MG Tab PO PRN (04:06)
[2022-03-06 04:57] LABS: ESTIMATED GFR 120 mL/min (>60)
[2022-03-06] MEDS: Albuterol/Ipratropium 3.0-0.5 MG/3 ML Neb Soln INH SCH ×3 (07:09→14:30)
[2022-03-06] MEDS: Divalproex Sodium Delayed-Release 125 MG Cap.Sprink PO SCH (07:27)
[2022-03-06] MEDS: Cefepime 1 GM in Sodium Chloride 0.9% 50 ML IV SCH (07:27)
[2022-03-06] MEDS: Lactobacillus Rhamnosus GG (Probiotic) Cap PO SCH (08:26)
[2022-03-06] MEDS: Gabapentin 300 MG Cap PO SCH ×2 (08:26→14:47)
[2022-03-06] MEDS: Calcium Carbonate 500 MG Tab.Chew PO SCH (08:26)
[2022-03-06] MEDS: Furosemide 20 MG/2 ML VIAL IVPUSH SCH (08:26)
[2022-03-06] MEDS: Docusate Sodium 100 MG Cap PO SCH (08:26)
[2022-03-06] MEDS: Bisacodyl 5 MG Tab PO SCH (08:26)
[2022-03-06] MEDS: Dronabinol 2.5 MG Cap PO SCH (08:30)
[2022-03-06] MEDS ORDERED: Furosemide 20 MG Tab PO SCH (14:00)
== END 2022-03-06 16:22 | disposition home health service (06) | DRG 853 ==
LOC: JP.ED 05:35 → JP.SDS 09:35 → JP.ICU 13:25 → JP.MS 02-02 20:21
PROVIDERS: ADMIT Hospitalist; ATTEND Surgery
PROC: 0DQ60ZZ Repair Stomach, Open Approach (ICD-10-PCS; principal; 2022-01-12)
PROC: 02HV33Z Insertion of Infusion Device into Superior Vena Cava, Percutaneous Approach (ICD-10-PCS; 2022-01-12)
PROC: 3E033XZ Introduction of Vasopressor into Peripheral Vein, Percutaneous Approach (ICD-10-PCS; 2022-01-12)
PROC: 8E0ZXY6 Isolation (ICD-10-PCS; 2022-01-12)
PROC: 3E03329 Introduction of Other Anti-infective into Peripheral Vein, Percutaneous Approach (ICD-10-PCS; 2022-01-12)
PROC: 30233N1 Transfusion of Nonautologous Red Blood Cells into Peripheral Vein, Percutaneous Approach (ICD-10-PCS; 2022-01-14)
PROC: 30233N1 Transfusion of Nonautologous Red Blood Cells into Peripheral Vein, Percutaneous Approach (ICD-10-PCS; 2022-01-15)
PROC: 02HV33Z Insertion of Infusion Device into Superior Vena Cava, Percutaneous Approach (ICD-10-PCS; 2022-01-21)
PROC: 30233N1 Transfusion of Nonautologous Red Blood Cells into Peripheral Vein, Percutaneous Approach (ICD-10-PCS; 2022-01-21)
PROC: 30233N1 Transfusion of Nonautologous Red Blood Cells into Peripheral Vein, Percutaneous Approach (ICD-10-PCS; 2022-01-22)
PROC: 0D160ZA Bypass Stomach to Jejunum, Open Approach (ICD-10-PCS; 2022-01-23)
PROC: 0FBG0ZZ Excision of Pancreas, Open Approach (ICD-10-PCS; 2022-01-23)
PROC: 0DTU0ZZ Resection of Omentum, Open Approach (ICD-10-PCS; 2022-01-23)
PROC: 0DT60ZZ Resection of Stomach, Open Approach (ICD-10-PCS; 2022-01-23)
PROC: 0W9G0ZZ Drainage of Peritoneal Cavity, Open Approach (ICD-10-PCS; 2022-01-23)
PROC: 0D990ZZ Drainage of Duodenum, Open Approach (ICD-10-PCS; 2022-01-23)
PROC: 0JD80ZZ Extraction of Abdomen Subcutaneous Tissue and Fascia, Open Approach (ICD-10-PCS; 2022-01-23)
PROC: 30233N1 Transfusion of Nonautologous Red Blood Cells into Peripheral Vein, Percutaneous Approach (ICD-10-PCS; 2022-01-23)
PROC: 30233N1 Transfusion of Nonautologous Red Blood Cells into Peripheral Vein, Percutaneous Approach (ICD-10-PCS; 2022-01-24)
PROC: 5A09458 Assistance with Respiratory Ventilation, 24-96 Consecutive Hours, Intermittent Positive Airway Pressure (ICD-10-PCS; 2022-01-25)
PROC: 0HQ7XZZ Repair Abdomen Skin, External Approach (ICD-10-PCS; 2022-01-26)
PROC: 30233N1 Transfusion of Nonautologous Red Blood Cells into Peripheral Vein, Percutaneous Approach (ICD-10-PCS; 2022-01-28)
PROC: 30233N1 Transfusion of Nonautologous Red Blood Cells into Peripheral Vein, Percutaneous Approach (ICD-10-PCS; 2022-01-29)
PROC: 0W993ZZ Drainage of Right Pleural Cavity, Percutaneous Approach (ICD-10-PCS; 2022-01-30)
PROC: 30233N1 Transfusion of Nonautologous Red Blood Cells into Peripheral Vein, Percutaneous Approach (ICD-10-PCS; 2022-01-31)
PROC: 30233N1 Transfusion of Nonautologous Red Blood Cells into Peripheral Vein, Percutaneous Approach (ICD-10-PCS; 2022-02-01)
PROC: 0W9G0ZZ Drainage of Peritoneal Cavity, Open Approach (ICD-10-PCS; 2022-02-04)
PROC: 0JQ80ZZ Repair Abdomen Subcutaneous Tissue and Fascia, Open Approach (ICD-10-PCS; 2022-02-04)
PROC: 02HV33Z Insertion of Infusion Device into Superior Vena Cava, Percutaneous Approach (ICD-10-PCS; 2022-02-04)
PROC: 3E0M05Z Introduction of Adhesion Barrier into Peritoneal Cavity, Open Approach (ICD-10-PCS; 2022-02-04)
PROC: 30233N1 Transfusion of Nonautologous Red Blood Cells into Peripheral Vein, Percutaneous Approach (ICD-10-PCS; 2022-02-08)
PROC: 0W9G0ZZ Drainage of Peritoneal Cavity, Open Approach (ICD-10-PCS; 2022-02-13)
PROC: 0DBW0ZZ Excision of Peritoneum, Open Approach (ICD-10-PCS; 2022-02-13)
PROC: 30233N1 Transfusion of Nonautologous Red Blood Cells into Peripheral Vein, Percutaneous Approach (ICD-10-PCS; 2022-02-14)
DX: A41.9 Sepsis, unspecified organism (principal); L89.153 Pressure ulcer of sacral region, stage 3; U07.1 COVID-19; K25.1 Acute gastric ulcer with perforation; J96.21 Acute and chronic respiratory failure with hypoxia; K55.029 Acute infarction of small intestine, extent unspecified; K26.6 Chronic or unspecified duodenal ulcer with both hemorrhage and perforation; K65.1 Peritoneal abscess; J18.9 Pneumonia, unspecified organism; E87.4 Mixed disorder of acid-base balance; I50.32 Chronic diastolic (congestive) heart failure; E46 Unspecified protein-calorie malnutrition; J90 Pleural effusion, not elsewhere classified; T81.31XA Disruption of external operation (surgical) wound, not elsewhere classified, initial encounter; J44.9 Chronic obstructive pulmonary disease, unspecified; I25.10 Atherosclerotic heart disease of native coronary artery without angina pectoris; E83.42 Hypomagnesemia; E83.51 Hypocalcemia; E53.8 Deficiency of other specified B group vitamins; E50.9 Vitamin A deficiency, unspecified; K86.89 Other specified diseases of pancreas; F17.210 Nicotine dependence, cigarettes, uncomplicated; Z98.84 Bariatric surgery status; I95.9 Hypotension, unspecified; Z88.5 Allergy status to narcotic agent; Z79.82 Long term (current) use of aspirin; Z79.52 Long term (current) use of systemic steroids; Z79.899 Other long term (current) drug therapy; I11.0 Hypertensive heart disease with heart failure; G47.30 Sleep apnea, unspecified; I73.9 Peripheral vascular disease, unspecified; K21.9 Gastro-esophageal reflux disease without esophagitis; G89.29 Other chronic pain; M54.9 Dorsalgia, unspecified; G43.909 Migraine, unspecified, not intractable, without status migrainosus; F41.9 Anxiety disorder, unspecified; F32.A Depression, unspecified; Z86.19 Personal history of other infectious and parasitic diseases; Z96.649 Presence of unspecified artificial hip joint; D50.0 Iron deficiency anemia secondary to blood loss (chronic); B37.9 Candidiasis, unspecified; Z68.23 Body mass index [BMI] 23.0-23.9, adult
CPT/HCPCS: 0241U; 36415; 36430; 36569; 36600; 51702; 71045; 71045-26; 71046; 71046-26; 71275; 74019; 74019-26; 74176; 74176-26; 74177; 74177-26; 76705; 76705-26; 80048; 80053; 80076; 81001; 82040; 82150; 82330; 82728; 82803; 82945; 83013; 83605; 83615; 83690; 83735; 83880; 83986; 84100; 84145; 84157; 84443; 84484; 85014; 85018; 85025; 85027; 85610; 85730; 86140; 86317; 86803; 86850; 86900; 86901; 86920; 86922; 87015; 87040; 87070; 87075; 87076; 87077; 87102; 87116; 87186; 87205; 87206; 87220; 87340; 87449; 88112; 88304; 88305; 88307; 89050; 92610-GN; 94002; 94003; 94640; 94660; 96365; 96366; 96367; 96368; 96375; 97110-GO; 97110-GP; 97162-GP; 97165-GO; 97530-GP; 97535-GO; 99233; 99284; 99285-25; A9270-GY; C1751; C9113; J0131; J0171; J0248; J0330; J0610; J0692; J0744; J1100; J1170; J1450; J1642; J1644; J1720; J1940; J1956; J2001; J2020; J2060; J2185; J2248; J2250; J2370; J2405; J2543; J2704; J2710; J2795; J3010; J3410; J3420; J3475; J3480; J3490; J7030; J7040; J7050; J7060; J7120; J7121; J7131; J7620; P9016; P9017; P9047; Q0162; Q9967

== ENCOUNTER 2022-04-04 15:44 | Emergency (ER) | payer MEDICAID ==
[2022-04-04] MEDS ORDERED: Sodium Chloride 0.9% 1,000 ML IV SCH (17:30)
[2022-04-04] MEDS ORDERED: Sodium Chloride 0.9% 10 ML Syringe FLUSH PRN (17:30)
[2022-04-04 18:08] LABS: ESTIMATED GFR 120 mL/min (>60)
[2022-04-04] MEDS ORDERED: Calcium Gluconate 10% 1 GM/10 ML SDV IVPUSH ONE (18:31)
[2022-04-04] MEDS ORDERED: Potassium Chloride 20 MEQ Tab.ER PO ONE (18:32)
[2022-04-04] MEDS ORDERED: MVI, Adult with Vitamin K 10 ML, Thiamine 100 MG, Folic Acid 1 MG, Magnesium Sulfate 3 ... IV SCH ×5 (18:45)
[2022-04-04] MEDS ORDERED: HYDROmorphone 0.5 MG/0.5 ML Syringe IVPUSH ONE (18:59)
[2022-04-04] MEDS ORDERED: Amoxicillin/Clavulanate K 875-125 MG Tab PO ONE (19:51)
[2022-04-04] MEDS ORDERED: Doxycycline 100 MG Cap PO ONE (19:51)
[2022-04-04] MEDS ORDERED: Ketorolac 30 MG/ML SDV IVPUSH ONE (19:58)
== END 2022-04-04 22:30 | disposition home or self-care (01) ==
LOC: JP.ED 15:44
DX: S31.000A Unspecified open wound of lower back and pelvis without penetration into retroperitoneum, initial encounter (principal); S31.109A Unspecified open wound of abdominal wall, unspecified quadrant without penetration into peritoneal cavity, initial encounter; U07.1 COVID-19; J12.82 Pneumonia due to coronavirus disease 2019; E83.51 Hypocalcemia; E87.6 Hypokalemia; I11.0 Hypertensive heart disease with heart failure; I50.9 Heart failure, unspecified; J44.9 Chronic obstructive pulmonary disease, unspecified; I25.2 Old myocardial infarction; E66.9 Obesity, unspecified; Z88.5 Allergy status to narcotic agent; Z91.011 Allergy to milk products; Z79.82 Long term (current) use of aspirin; Z79.899 Other long term (current) drug therapy; Z68.20 Body mass index [BMI] 20.0-20.9, adult
CPT/HCPCS: 36415; 71250; 74176; 80053; 81001; 84145; 85025; 86140; 87040; 96361; 96365; 96366; 96375; 99284; 99285; A9270; J0610; J1170; J1885; J3411; J3475; J7030; J3490

== ENCOUNTER 2022-04-17 02:16 | Emergency (ER) | payer MEDICAID ==
[2022-04-17] MEDS ORDERED: Ketorolac 30 MG/ML SDV IM ONE (03:06)
[2022-04-17] MEDS ORDERED: Acetaminophen/oxyCODONE 325-5 MG Tab PO ONE (03:06)
[2022-04-17 03:33] LABS: ESTIMATED GFR 120 mL/min (>60)
[2022-04-17] MEDS ORDERED: Potassium Chloride 20 MEQ in Premix Bag 1 BAG IV ONE (03:39)
[2022-04-17] MEDS ORDERED: Potassium Chloride 20 MEQ Tab.ER PO ONE (06:05)
[2022-04-17] MEDS ORDERED: Gabapentin 100 MG Cap PO ONE (06:15)
== END 2022-04-17 06:37 | disposition home or self-care (01) ==
LOC: JP.ED 02:16
DX: M54.50 Low back pain, unspecified (principal); E87.6 Hypokalemia; J44.9 Chronic obstructive pulmonary disease, unspecified; I11.0 Hypertensive heart disease with heart failure; I50.9 Heart failure, unspecified; K21.9 Gastro-esophageal reflux disease without esophagitis; E66.9 Obesity, unspecified; F17.210 Nicotine dependence, cigarettes, uncomplicated; Z88.5 Allergy status to narcotic agent; Z91.011 Allergy to milk products; Z79.82 Long term (current) use of aspirin; Z79.899 Other long term (current) drug therapy; Z68.20 Body mass index [BMI] 20.0-20.9, adult
CPT/HCPCS: 36415; 72100; 80053; 82728; 83735; 85025; 96365; 96366; 96372; 99283; A9270; J1885; J3480

== ENCOUNTER 2022-06-10 05:07 | Inpatient (IN) | payer MEDICAID ==
[2022-06-10] MEDS: 50% Dextrose in Water 50 ML Syringe IVPUSH ONE (05:47)
[2022-06-10] MEDS: Dextrose 5%-0.9% NaCl 1,000 ML IV SCH (05:53)
[2022-06-10] MEDS: 50% Dextrose in Water 50 ML Syringe ONE (05:54)
[2022-06-10] MEDS ORDERED: Albuterol 0.083% 2.5 MG/3 ML Neb Soln NEB PRN ×2 (07:18→12:12)
[2022-06-10] MEDS ORDERED: LORazepam ORAL Concentrate 1MG/0.5ML U/D PO PRN (10:44)
[2022-06-10] MEDS ORDERED: Albuterol 90 MCG/6.7 GM Inhaler INH PRN (10:48)
[2022-06-10] MEDS: Morphine 10 MG/0.5 ML Oral Syringe PO PRN (11:26)
[2022-06-10] MEDS: Budesonide 0.25 MG/2 ML Neb Susp INH SCH (21:59)
[2022-06-11] MEDS ORDERED: Pantoprazole 40 MG Tab.CR PO SCH (07:30)
[2022-06-11] MEDS ORDERED: DULoxetine 30 MG Cap PO SCH (09:00)
== END 2022-06-10 23:20 | disposition expired | DRG 951 ==
LOC: JP.ED 05:07 → JP.MS 07:20
PROVIDERS: ADMIT Family Medicine; ATTEND Hospitalist
DX: Z51.5 Encounter for palliative care (principal); I50.32 Chronic diastolic (congestive) heart failure; E16.2 Hypoglycemia, unspecified; U09.9 Post COVID-19 condition, unspecified; I25.10 Atherosclerotic heart disease of native coronary artery without angina pectoris; L98.492 Non-pressure chronic ulcer of skin of other sites with fat layer exposed; I11.0 Hypertensive heart disease with heart failure; K21.9 Gastro-esophageal reflux disease without esophagitis; I73.9 Peripheral vascular disease, unspecified; J44.9 Chronic obstructive pulmonary disease, unspecified; G47.30 Sleep apnea, unspecified; G89.29 Other chronic pain; M54.9 Dorsalgia, unspecified; M25.569 Pain in unspecified knee; M79.673 Pain in unspecified foot; Z96.649 Presence of unspecified artificial hip joint; R40.4 Transient alteration of awareness; F41.9 Anxiety disorder, unspecified; F32.A Depression, unspecified; I25.2 Old myocardial infarction; E53.8 Deficiency of other specified B group vitamins; Z98.84 Bariatric surgery status; Z79.51 Long term (current) use of inhaled steroids; Z79.82 Long term (current) use of aspirin; Z79.899 Other long term (current) drug therapy; Z88.5 Allergy status to narcotic agent; Z87.891 Personal history of nicotine dependence; Z88.8 Allergy status to other drugs, medicaments and biological substances; Z93.0 Tracheostomy status; Z98.890 Other specified postprocedural states
CPT/HCPCS: 82947; 94640